=== PATIENT | female | born 1955 | race Caucasian/White ===

== ENCOUNTER → 2019-03-01 07:47 | Outpatient (CLI) | payer OTHER, SELFPAY ==
--- NOTE | 2019-03-01 07:48 | DI.RAD.S_ITS ---
PROCEDURE: XR LUMBAR SPINE 2-3V INDICATIONS: Lumbar pain, facet arthropathy TECHNIQUE: 3 views of the lumbar spine were acquired. COMPARISON: [facility], MR, L-SPINE WITHOUT CONTRAST, 12/06/2014, 9:26. [facility], MR, L-SPINE WITHOUT CONTRAST, 03/14/2008, 8:01. FINDINGS: Bones: 4 [id number] vertebrae are present. L5 is sacralized. There is normal bony alignment. No vertebral body compression fractures. There is grade 1 anterolisthesis at L4-L5. There is mild degenerative disease at L3-L4, L4-L5 and L5-S1. Moderate facet arthropathy at L4-L5 and L5-S1. No suspicious bony lesions. Soft tissues: Overlying bowel gas pattern is normal. No suspicious soft tissue calcifications. IMPRESSION: 1. Transitional anatomy with sacralization of L5. 2. Mild degenerative disc disease and moderate facet arthropathy in lumbar spine. Dictated by: Saul Cordon M.D. on 03/01/2019 at 8:54 Approved by: Saul Cordon M.D. on 03/01/2019 at 8:58
--- NOTE | 2019-03-01 07:48 | DI.MRI.S_ITS ---
PROCEDURE: MR LUMBAR SPINE WO CON INDICATIONS: Lumbar pain, facet arthropathy TECHNIQUE: Noncontrast sagittal T1 spin echo and T2 fast echo, sagittal STIR, axial T1 and T2 fast spin echo through the lumbar spine. In cases with scoliosis, additional coronal T2 fast spin echo may be performed. COMPARISON: [facility], MR, L-SPINE WITHOUT CONTRAST, 12/06/2014, 9:26. [facility], MR, L-SPINE WITHOUT CONTRAST, 03/14/2008, 8:01. [facility], CR, XR LUMBAR SPINE 2-3V, 03/01/2019, 8:09. FINDINGS: Image quality: Excellent. Alignment and Curvature: Transitional anatomy is evident on the comparison lumbar spine radiograph. L5 is sacralized. There is grade 1 anterolisthesis at L4-L5. Bone Marrow: Marrow is of normal overall signal. No acute vertebral body compression fractures. Spinal Cord: Conus medullaris terminates at the T12-L1 level. Visualized cord demonstrates normal signal and size. Paraspinous Soft Tissues: No paravertebral masses. T12-L1: Preserved disc height and disc signal. There is posterior disc bulge. The central canal is patent. No foraminal stenosis. No definitive nerve root impingement. L1-L2: Preserved disc height and disc signal. There is posterior disc bulge. Mild bilateral facet arthropathy and hypertrophy of ligamentum flavum. The central canal is patent. No foraminal stenosis. No definitive nerve root impingement. L2-L3: Mild loss of disc height and disc desiccation. There is posterior disc bulge. Mild bilateral facet arthropathy and hypertrophy of ligamentum flavum. The central canal is patent. Mild left foraminal stenosis, unchanged compared to the prior exam. No definitive nerve root impingement. L3-L4: Mild loss of disc height and disc desiccation. There is posterior disc bulge. Moderate bilateral facet arthropathy and hypertrophy of ligamentum flavum. The central canal is mildly narrowed. Moderate right and mild left foraminal stenosis, increased compared to the prior exam. No definitive nerve root impingement. L4-L5: Preserved disc height. Mild disc desiccation. There is posterior disc bulge. Severe bilateral facet arthropathy and hypertrophy of ligamentum flavum. The central canal is moderately narrowed. Mild right foraminal stenosis, unchanged compared to the prior exam. No left femoral stenosis. No definitive nerve root impingement. L5-S1: Normal appearance intervertebral disc. There is mild/moderate bilateral facet arthropathy. No central canal or foraminal stenosis. IMPRESSION: 1. Multilevel degenerative disc disease and facet arthropathy as described. 2. Moderate central canal stenosis at L4-L5. 3. Multilevel foraminal stenoses as described. Dictated by: Saul Cordon M.D. on 03/01/2019 at 15:46 Approved by: Saul Cordon M.D. on 03/01/2019 at 16:03
== END ==
PROVIDERS: PCP Family Medicine; Visit Provider Registered Nurse
DX: M47.817 Spondylosis without myelopathy or radiculopathy, lumbosacral region (principal); M47.816 Spondylosis without myelopathy or radiculopathy, lumbar region; M54.5 Low back pain; M51.36 Other intervertebral disc degeneration, lumbar region; M48.061 Spinal stenosis, lumbar region without neurogenic claudication
CPT/HCPCS: 72100; 72148

== ENCOUNTER 2019-06-06 14:30 | Outpatient (RCR) | payer OTHER, SELFPAY ==
--- NOTE | 2019-03-05 16:29 | PT.OIE ---
Current Diagnoses Spondylosis without myelopathy or radiculopathy, lumbosacral region (03/05/19) Past Medical History (Last Updated 01/29/19 @ 10:33 by BIRDIE Ledesma) Asthma (Chronic) Chronic seasonal allergic rhinitis (Chronic) Depression (Chronic) Facet arthropathy, lumbosacral (Chronic) GERD (gastroesophageal reflux disease) (Chronic) Hyperlipidemia (Chronic) Morbid obesity with body mass index (BMI) of 40.0 to 49.9 (Chronic) Obesity (BMI 30-39.9) (Inactive) Obstructive sleep apnea of adult (Chronic) Snoring (Inactive) Type 2 diabetes mellitus (Chronic) Visit Care Team Role Provider Type Mando Garcia DO Primary Care Provider Non-Staff Specialty: Family Practice Address: [address] [place] [address], [id number] Fax: Email: BIRDIE Ledesma Attending Provider Advanced Compressor Assembler Specialty: Pain Management Address: [address] [place] [address], [phone] Email: [email or web address] Physical Therapy Initial Evaluation PT-OP-A Visit Information Start: 03/05/19 07:29 Freq: Status: Active Protocol: Document 03/05/19 08:15 AMB (Rec: 03/06/19 16:23 AMB [email or web address]) Out-Patient Physical Therapy Visit Information Visit Information Visit Type Initial Evaluation Visit Start Time 08:15 Visit Stop Time 09:00 Total Visit Minutes 45 Visit Number 1 PT-OP-B Current Condition Start: 03/05/19 07:29 Freq: Status: Active Protocol: Document 03/05/19 08:15 AMB (Rec: 03/05/19 09:09 AMB [id number]) Current Condition History of Current Condition Onset Date 1 year ago Current Complaints back pain that radiates numbness into left great toe. History of Current Condition Edith reports a multi year history of low back pain that worsened about a year ago insidiously. 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 She does not find anything particularly helpful to reduce her pain. She did try PT years ago, and does remember the inversion table that they had was helpful. Future Testing and Treatments Planned MRI- 03/01/19: multilevel degenerative disc disease, foraminal stenosis, and facet arthorpathy, moderate central canal stenosis at L4-L5. Treatment Goals Patient/Caregiver Goals Decreae pain, go up and down stairs and walk over uneven terrain without pain Prior Functional Status Baseline Function- ADL's Independent Baseline Function- Mobility Independent Current Functional Impairments (Reported) Functional Limitations- ADL's Pt pushes through the pain to complete her work tasks and ADLs Personal Factors Other Personal Factors That May Effect type II diabetes, deperession Therapy/Recovery PT-OP-C Subjective Start: 03/05/19 07:29 Freq: Status: Active Protocol: Document 03/05/19 08:15 AMB (Rec: 03/06/19 16:23 AMB [email or web address]) Patient Questionnaires Oswestry Low Back Index Oswestry Score 30 Oswestry Impairment 20 to 39% Impaired (Score 20- 39) OP-PT Pain Assessment Location Back Pain Location Details low back over the spine with numbness radiating down left leg Intensity 4 Scale Used Numeric (1 - 10) PT-OP-G Mobility & Gait Start: 03/05/19 07:29 Freq: Status: Active Protocol: Document 03/05/19 08:15 AMB (Rec: 03/07/19 15:59 AMB [email or web address]) OP Gait Assessment Comments Gait Comments decreased trunk rotation, stairs: ok with 4 steps with railings- did ascend/descend stairs with alternating gait. PT-OP-J Posture/Palpation/Skin Start: 03/05/19 07:29 Freq: Status: Active Protocol: Document 03/05/19 08:15 AMB (Rec: 03/07/19 12:51 AMB [email or web address]) Posture Evaluation Comments Posture Comments Increased lumbar lordosis Palpation Assessment Location One Palpation Location lumbar spine Palpation Details Tenderness over spinous processes throughout lumbar spine, not into sacrum or thoracic spine. No tenderness over QL, but tenderness and tightness over paraspinals. PT-OP-K Range of Motion Start: 03/05/19 07:29 Freq: Status: Active Protocol: Document 03/05/19 08:15 AMB (Rec: 03/07/19 12:51 AMB [email or web address]) Lumbar Spine Range of Motion Lumbar Spine Active Degrees Testing Position Standing Flexion 20 Extension 5 Lateral Flexion Left 5 Lateral Flexion Right 10 ROM Limitations Soft Tissue Tightness,Pain PT-OP-M Strength Start: 03/05/19 07:29 Freq: Status: Active Protocol: Document 03/05/19 08:15 AMB (Rec: 03/07/19 15:55 AMB [email or web address]) Hip Strength Hip Manual Muscle Testing Right Flexion (L2) 4 Good Left Flexion (L2) 4 Good Knee Strength Knee Manual Muscle Testing Right Flexion (S2) 5 Normal Extension (L3) 5 Normal Left Flexion (S2) 5 Normal Extension (L3) 5 Normal Ankle/Foot Strength Ankle and Foot Manual Muscle Testing Right Dorsiflexion (L4) 4+ Good+ Left Dorsiflexion (L4) 4+ Good+ Toe Strength Toe Manual Muscle Testing Left Great Toe Extension 5 Normal PT-OP-T Assessment and Plan Start: 03/05/19 07:29 Freq: Status: Active Protocol: Document 03/05/19 08:15 AMB (Rec: 03/07/19 16:29 AMB [email or web address]) Physical Therapy Assessment Rehab Potential Rehabilitation Potential Good Evaluation Complexity Number of Personal Factors/Comorbidities 1-2 Number of Body Systems Impaired 4 or More Clinical Presentation at Evaluation Stable Impairments Impairments Functional Activities,Gait, Pain,Posture,ROM,Strength Goals Two Impairment gait Short Term Goal (STG) Edith will ambulate on smooth surfaces for 15 minutes with back pain of 2/10 or less. STG Duration 4 weeks Group Home Goal (LTG) Edith will ascend and descend a standard height stairs with alternating gait pattern without an increase in back pain. LTG Duration 8 weeks One Impairment ROM Short Term Goal (STG) Edith will increase her lumbar flexion to 45 degrees. STG Duration 4 weeks Materials Associate Goal (LTG) Edith will improve her lumbar extension to 15 degrees. LTG Duration 8 weeks Assessment Summary Assessment Edith attends PT with back pain that limits her ability to walk and do stairs. 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 She did have poor core stability, and ROM was more limited by pain than anything else, but she does have moderate central canal stenosis at L4-5. She will benefit from PT to improve her overall mobility, and decrease her pain wiht ambulation stairs. Physical Therapy Plan Frequency and Duration Frequency of Treatment 2x/Week Duration of Treatment 8 weeks Plan of Care Start Date 03/05/19 Plan of Care End Date 04/30/19 Therapeutic Interventions Therapeutic Interventions Aquatic Therapy,Gait Training, Home Exercise Program,Joint Mobilizations,Manual Therapy, Neuromuscular Re-education, Self-Care/Home Management, Therapeutic Activities, Therapeutic Exercises Modalities Cold Pack/Ice Massage,Electric Stimulation,Hot Packs, Traction- Mechanical Next Visit Focus/Plan Next Note Type Treatment Note Next Visit Plan Progress core stabilization HEP, can try traction for sx relief
--- NOTE | 2019-03-05 16:30 | PT.OPPOC ---
Current Diagnoses Spondylosis without myelopathy or radiculopathy, lumbosacral region (03/05/19) Visit Care Team Role Provider Type Mando Garcia DO Primary Care Provider Non-Staff Specialty: Family Practice Address: [address] [place] [address], [phone] Fax: Email: BIRDIE Ledesma Attending Provider Advanced Gaming Director Specialty: Pain Management Address: [address] [place] [address], [place], [address] Email: [email or web address] Plan Of Care PT-OP-T Assessment and Plan Start: 03/05/19 07:29 Freq: Status: Active Protocol: Document 03/05/19 08:15 AMB (Rec: 03/07/19 16:29 AMB [email or web address]) Physical Therapy Assessment Rehab Potential Rehabilitation Potential Good Evaluation Complexity Number of Personal Factors/Comorbidities 1-2 Number of Body Systems Impaired 4 or More Clinical Presentation at Evaluation Stable Impairments Impairments Functional Activities,Gait, Pain,Posture,ROM,Strength Goals Two Impairment gait Short Term Goal (STG) Edith will ambulate on smooth surfaces for 15 minutes with back pain of 2/10 or less. STG Duration 4 weeks Business Account Executive Goal (LTG) Edith will ascend and descend a standard height stairs with alternating gait pattern without an increase in back pain. LTG Duration 8 weeks One Impairment ROM Short Term Goal (STG) Edith will increase her lumbar flexion to 45 degrees. STG Duration 4 weeks Mcfp Goal (LTG) Edith will improve her lumbar extension to 15 degrees. LTG Duration 8 weeks Assessment Summary Assessment Edith attends PT with back pain that limits her ability to walk and do stairs. 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 She did have poor core stability, and ROM was more limited by pain than anything else, but she does have moderate central canal stenosis at L4-5. She will benefit from PT to improve her overall mobility, and decrease her pain wiht ambulation stairs. Physical Therapy Plan Frequency and Duration Frequency of Treatment 2x/Week Duration of Treatment 8 weeks Plan of Care Start Date 03/05/19 Plan of Care End Date 04/30/19 Therapeutic Interventions Therapeutic Interventions Aquatic Therapy,Gait Training, Home Exercise Program,Joint Mobilizations,Manual Therapy, Neuromuscular Re-education, Self-Care/Home Management, Therapeutic Activities, Therapeutic Exercises Modalities Cold Pack/Ice Massage,Electric Stimulation,Hot Packs, Traction- Mechanical Next Visit Focus/Plan Next Note Type Treatment Note Next Visit Plan Progress core stabilization HEP, can try traction for sx relief Plan of Care Dates Plan of Care Start Date 03/05/19 Plan of Care End Date 04/30/19
--- NOTE | 2019-03-08 12:00 | PT.OTN ---
Current Diagnoses Spondylosis without myelopathy or radiculopathy, lumbosacral region (03/08/19) Physical Therapy Treatment Note PT-OP-A Visit Information Start: 03/05/19 07:29 Freq: Status: Active Protocol: Document 03/08/19 08:15 AMB (Rec: 03/08/19 09:08 AMB [id number]) Out-Patient Physical Therapy Visit Information Visit Information Visit Type Treatment Note Visit Start Time 08:15 Visit Stop Time 09:00 Total Visit Minutes 45 Visit Number 2 PT-OP-B Current Condition Start: 03/05/19 07:29 Freq: Status: Active Protocol: Document 03/05/19 08:15 AMB (Rec: 03/05/19 09:09 AMB [id number]) Current Condition History of Current Condition Onset Date 1 year ago Current Complaints back pain that radiates numbness into left great toe. History of Current Condition Edith reports a multi year history of low back pain that worsened about a year ago insidiously. 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 She does not find anything particularly helpful to reduce her pain. She did try PT years ago, and does remember the inversion table that they had was helpful. Future Testing and Treatments Planned MRI- 03/01/19: multilevel degenerative disc disease, foraminal stenosis, and facet arthorpathy, moderate central canal stenosis at L4-L5. Treatment Goals Patient/Caregiver Goals Decreae pain, go up and down stairs and walk over uneven terrain without pain Prior Functional Status Baseline Function- ADL's Independent Baseline Function- Mobility Independent Current Functional Impairments (Reported) Functional Limitations- ADL's Pt pushes through the pain to complete her work tasks and ADLs Personal Factors Other Personal Factors That May Effect type II diabetes, deperession Therapy/Recovery PT-OP-C Subjective Start: 03/05/19 07:29 Freq: Status: Active Protocol: Document 03/08/19 08:15 AMB (Rec: 03/08/19 09:08 AMB [id number]) OP-PT Subjective Patient Comments Patient Comments Pt reports car transfers are also a problem for her back- lifting her leg into the car. PT-OP-G Mobility & Gait Start: 03/05/19 07:29 Freq: Status: Active Protocol: Document 03/05/19 08:15 AMB (Rec: 03/07/19 15:59 AMB [email or web address]) OP Gait Assessment Comments Gait Comments decreased trunk rotation, stairs: ok with 4 steps with railings- did ascend/descend stairs with alternating gait. PT-OP-J Posture/Palpation/Skin Start: 03/05/19 07:29 Freq: Status: Active Protocol: Document 03/05/19 08:15 AMB (Rec: 03/07/19 12:51 AMB [email or web address]) Posture Evaluation Comments Posture Comments Increased lumbar lordosis Palpation Assessment Location One Palpation Location lumbar spine Palpation Details Tenderness over spinous processes throughout lumbar spine, not into sacrum or thoracic spine. No tenderness over QL, but tenderness and tightness over paraspinals. PT-OP-K Range of Motion Start: 03/05/19 07:29 Freq: Status: Active Protocol: Document 03/05/19 08:15 AMB (Rec: 03/07/19 12:51 AMB [email or web address]) Lumbar Spine Range of Motion Lumbar Spine Active Degrees Testing Position Standing Flexion 20 Extension 5 Lateral Flexion Left 5 Lateral Flexion Right 10 ROM Limitations Soft Tissue Tightness,Pain PT-OP-M Strength Start: 03/05/19 07:29 Freq: Status: Active Protocol: Document 03/05/19 08:15 AMB (Rec: 03/07/19 15:55 AMB [email or web address]) Hip Strength Hip Manual Muscle Testing Right Flexion (L2) 4 Good Left Flexion (L2) 4 Good Knee Strength Knee Manual Muscle Testing Right Flexion (S2) 5 Normal Extension (L3) 5 Normal Left Flexion (S2) 5 Normal Extension (L3) 5 Normal Ankle/Foot Strength Ankle and Foot Manual Muscle Testing Right Dorsiflexion (L4) 4+ Good+ Left Dorsiflexion (L4) 4+ Good+ Toe Strength Toe Manual Muscle Testing Left Great Toe Extension 5 Normal PT-OP-Q Treatments Start: 03/05/19 07:29 Freq: Status: Active Protocol: Document 03/08/19 08:15 AMB (Rec: 03/08/19 12:00 AMB [email or web address]) Cardio Equipment Recumbent Stepper (Sci-Fit) Duration (Minutes) 5 Resistance 6 Therapeutic Exercises Supine Exercises 2 Supine Exercise Name supine may 26 Supine Exercise Name TrA stabilization with neutral spine Other Exercises 3 Other Exercise Name cat cow Reps/Minutes 30x2 2 Other Exercise Name quadruped UE flex Reps/Minutes 10x2 1 Other Exercise Name yue pose Reps/Minutes 30x3 PT-OP-T Assessment and Plan Start: 03/05/19 07:29 Freq: Status: Active Protocol: Document 03/08/19 08:15 AMB (Rec: 03/08/19 12:00 AMB [email or web address]) Physical Therapy Assessment Assessment Summary Assessment Pt has a Sherman lumbar traction unit at home. Encouraged her to set it up and try it. Welcome to bring it it/ try it here if she has questions. Tolerated gentle core stabilization well. Physical Therapy Plan Next Visit Focus/Plan Next Note Type Treatment Note Next Visit Plan Progress core stabilization HEP,
--- NOTE | 2019-03-13 14:32 | PT.OTN ---
Current Diagnoses Spondylosis without myelopathy or radiculopathy, lumbosacral region (03/12/19) Physical Therapy Treatment Note PT-OP-A Visit Information Start: 03/05/19 07:29 Freq: Status: Active Protocol: Document 03/12/19 08:15 AMB (Rec: 03/12/19 09:10 AMB [id number]) Out-Patient Physical Therapy Visit Information Visit Information Visit Type Treatment Note Visit Start Time 08:15 Visit Stop Time 09:00 Total Visit Minutes 45 Visit Number 3 PT-OP-B Current Condition Start: 03/05/19 07:29 Freq: Status: Active Protocol: Document 03/05/19 08:15 AMB (Rec: 03/05/19 09:09 AMB [id number]) Current Condition History of Current Condition Onset Date 1 year ago Current Complaints back pain that radiates numbness into left great toe. History of Current Condition Edith reports a multi year history of low back pain that worsened about a year ago insidiously. 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 She does not find anything particularly helpful to reduce her pain. She did try PT years ago, and does remember the inversion table that they had was helpful. Future Testing and Treatments Planned MRI- 03/01/19: multilevel degenerative disc disease, foraminal stenosis, and facet arthorpathy, moderate central canal stenosis at L4-L5. Treatment Goals Patient/Caregiver Goals Decreae pain, go up and down stairs and walk over uneven terrain without pain Prior Functional Status Baseline Function- ADL's Independent Baseline Function- Mobility Independent Current Functional Impairments (Reported) Functional Limitations- ADL's Pt pushes through the pain to complete her work tasks and ADLs Personal Factors Other Personal Factors That May Effect type II diabetes, deperession Therapy/Recovery PT-OP-C Subjective Start: 03/05/19 07:29 Freq: Status: Active Protocol: Document 03/12/19 08:15 AMB (Rec: 03/13/19 14:32 AMB [email or web address]) OP-PT Subjective Patient Comments Patient Comments Pt brings her home traction unit in, but is concerned because she has not used it in years and tried to pump it up but the numbers didn't move. She was sore after the last appointment, but not overly so . PT-OP-G Mobility & Gait Start: 03/05/19 07:29 Freq: Status: Active Protocol: Document 03/05/19 08:15 AMB (Rec: 03/07/19 15:59 AMB [email or web address]) OP Gait Assessment Comments Gait Comments decreased trunk rotation, stairs: ok with 4 steps with railings- did ascend/descend stairs with alternating gait. PT-OP-J Posture/Palpation/Skin Start: 03/05/19 07:29 Freq: Status: Active Protocol: Document 03/05/19 08:15 AMB (Rec: 03/07/19 12:51 AMB [email or web address]) Posture Evaluation Comments Posture Comments Increased lumbar lordosis Palpation Assessment Location One Palpation Location lumbar spine Palpation Details Tenderness over spinous processes throughout lumbar spine, not into sacrum or thoracic spine. No tenderness over QL, but tenderness and tightness over paraspinals. PT-OP-K Range of Motion Start: 03/05/19 07:29 Freq: Status: Active Protocol: Document 03/05/19 08:15 AMB (Rec: 03/07/19 12:51 AMB [email or web address]) Lumbar Spine Range of Motion Lumbar Spine Active Degrees Testing Position Standing Flexion 20 Extension 5 Lateral Flexion Left 5 Lateral Flexion Right 10 ROM Limitations Soft Tissue Tightness,Pain PT-OP-M Strength Start: 03/05/19 07:29 Freq: Status: Active Protocol: Document 03/05/19 08:15 AMB (Rec: 03/07/19 15:55 AMB [email or web address]) Hip Strength Hip Manual Muscle Testing Right Flexion (L2) 4 Good Left Flexion (L2) 4 Good Knee Strength Knee Manual Muscle Testing Right Flexion (S2) 5 Normal Extension (L3) 5 Normal Left Flexion (S2) 5 Normal Extension (L3) 5 Normal Ankle/Foot Strength Ankle and Foot Manual Muscle Testing Right Dorsiflexion (L4) 4+ Good+ Left Dorsiflexion (L4) 4+ Good+ Toe Strength Toe Manual Muscle Testing Left Great Toe Extension 5 Normal PT-OP-Q Treatments Start: 03/05/19 07:29 Freq: Status: Active Protocol: Document 03/12/19 08:15 AMB (Rec: 03/13/19 14:32 AMB [email or web address]) Therapeutic Exercises Supine Exercises 3 Supine Exercise Name SLR Reps/Minutes 2x10 2 Supine Exercise Name supine march Reps/Minutes 2x10 1 Supine Exercise Name TrA stabilization with neutral spine Reps/Minutes 2x10 Other Exercises 2 Other Exercise Name quadruped UE flex Reps/Minutes 10x2 1 Other Exercise Name yue pose Reps/Minutes 30x3 PT-OP-R Modalities Start: 03/05/19 07:29 Freq: Status: Active Protocol: Document 03/12/19 08:15 AMB (Rec: 03/13/19 14:32 AMB [email or web address]) Spinal Traction Traction Treatment Lumbar Method Static Patient Position Supine Force Applied (Pounds) 25 PT-OP-T Assessment and Plan Start: 03/05/19 07:29 Freq: Status: Active Protocol: Document 03/12/19 08:15 AMB (Rec: 03/13/19 14:32 AMB [email or web address]) Physical Therapy Assessment Assessment Summary Assessment Pt was able to use [employer]'s traction unit, felt a stretch with a small amount of traction, machine was difficult to pump up but possible. Pt continues to have weakness in core but is doing her HEP. Physical Therapy Plan Next Visit Focus/Plan Next Note Type Treatment Note Next Visit Plan Progress core stabilization HEP,
--- NOTE | 2019-03-15 12:00 | PT.OTN ---
Current Diagnoses Spondylosis without myelopathy or radiculopathy, lumbosacral region (03/15/19) Physical Therapy Treatment Note PT-OP-A Visit Information Start: 03/05/19 07:29 Freq: Status: Active Protocol: Document 03/15/19 08:15 AMB (Rec: 03/15/19 08:39 AMB [id number]) Out-Patient Physical Therapy Visit Information Visit Information Visit Type Treatment Note Visit Start Time 08:15 Visit Stop Time 09:00 Total Visit Minutes 45 Visit Number 4 PT-OP-B Current Condition Start: 03/05/19 07:29 Freq: Status: Active Protocol: Document 03/05/19 08:15 AMB (Rec: 03/05/19 09:09 AMB [id number]) Current Condition History of Current Condition Onset Date 1 year ago Current Complaints back pain that radiates numbness into left great toe. History of Current Condition Edith reports a multi year history of low back pain that worsened about a year ago insidiously. 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 She does not find anything particularly helpful to reduce her pain. She did try PT years ago, and does remember the inversion table that they had was helpful. Future Testing and Treatments Planned MRI- 03/01/19: multilevel degenerative disc disease, foraminal stenosis, and facet arthorpathy, moderate central canal stenosis at L4-L5. Treatment Goals Patient/Caregiver Goals Decreae pain, go up and down stairs and walk over uneven terrain without pain Prior Functional Status Baseline Function- ADL's Independent Baseline Function- Mobility Independent Current Functional Impairments (Reported) Functional Limitations- ADL's Pt pushes through the pain to complete her work tasks and ADLs Personal Factors Other Personal Factors That May Effect type II diabetes, deperession Therapy/Recovery PT-OP-C Subjective Start: 03/05/19 07:29 Freq: Status: Active Protocol: Document 03/15/19 08:15 AMB (Rec: 03/15/19 08:39 AMB [id number]) OP-PT Subjective Patient Comments Patient Comments Pt notes she was sore after PT , but also noticed greater flexibility when she tried to trim her toenails which was nice. PT-OP-G Mobility & Gait Start: 03/05/19 07:29 Freq: Status: Active Protocol: Document 03/05/19 08:15 AMB (Rec: 03/07/19 15:59 AMB [email or web address]) OP Gait Assessment Comments Gait Comments decreased trunk rotation, stairs: ok with 4 steps with railings- did ascend/descend stairs with alternating gait. PT-OP-J Posture/Palpation/Skin Start: 03/05/19 07:29 Freq: Status: Active Protocol: Document 03/05/19 08:15 AMB (Rec: 03/07/19 12:51 AMB [email or web address]) Posture Evaluation Comments Posture Comments Increased lumbar lordosis Palpation Assessment Location One Palpation Location lumbar spine Palpation Details Tenderness over spinous processes throughout lumbar spine, not into sacrum or thoracic spine. No tenderness over QL, but tenderness and tightness over paraspinals. PT-OP-K Range of Motion Start: 03/05/19 07:29 Freq: Status: Active Protocol: Document 03/05/19 08:15 AMB (Rec: 03/07/19 12:51 AMB [email or web address]) Lumbar Spine Range of Motion Lumbar Spine Active Degrees Testing Position Standing Flexion 20 Extension 5 Lateral Flexion Left 5 Lateral Flexion Right 10 ROM Limitations Soft Tissue Tightness,Pain PT-OP-M Strength Start: 03/05/19 07:29 Freq: Status: Active Protocol: Document 03/05/19 08:15 AMB (Rec: 03/07/19 15:55 AMB [email or web address]) Hip Strength Hip Manual Muscle Testing Right Flexion (L2) 4 Good Left Flexion (L2) 4 Good Knee Strength Knee Manual Muscle Testing Right Flexion (S2) 5 Normal Extension (L3) 5 Normal Left Flexion (S2) 5 Normal Extension (L3) 5 Normal Ankle/Foot Strength Ankle and Foot Manual Muscle Testing Right Dorsiflexion (L4) 4+ Good+ Left Dorsiflexion (L4) 4+ Good+ Toe Strength Toe Manual Muscle Testing Left Great Toe Extension 5 Normal PT-OP-Q Treatments Start: 03/05/19 07:29 Freq: Status: Active Protocol: Document 03/15/19 08:15 AMB (Rec: 03/15/19 08:39 AMB [id number]) Cardio Equipment Recumbent Stepper (Sci-Fit) Duration (Minutes) 6 Resistance 6 Therapeutic Exercises Supine Exercises 2 Supine Exercise Name supine march Reps/Minutes 2x10 1 Supine Exercise Name TrA stabilization with neutral spine Reps/Minutes 2x10 Other Exercises 2 Other Exercise Name quadruped UE flex Reps/Minutes 10x2 1 Other Exercise Name yue pose Reps/Minutes 30x3 Therapeutic Activity Therapeutic Activity 1 Name lift training Comments 10# from floor to waist height , focusing on squat technique rather than bending at the waist. PT-OP-R Modalities Start: 03/05/19 07:29 Freq: Status: Active Protocol: Document 03/12/19 08:15 AMB (Rec: 03/13/19 14:32 AMB [email or web address]) Spinal Traction Traction Treatment Lumbar Method Static Patient Position Supine Force Applied (Pounds) 25 PT-OP-T Assessment and Plan Start: 03/05/19 07:29 Freq: Status: Active Protocol: Document 03/15/19 08:15 AMB (Rec: 03/15/19 08:39 AMB [id number]) Physical Therapy Assessment Assessment Summary Assessment Pt tolerated supine core stabilization well, but back does continue to be sore. Physical Therapy Plan Next Visit Focus/Plan Next Note Type Treatment Note Next Visit Plan Progress core stabilization HEP,
--- NOTE | 2019-03-19 09:00 | PT.OTN ---
Current Diagnoses Spondylosis without myelopathy or radiculopathy, lumbosacral region (03/19/19) Physical Therapy Treatment Note PT-OP-A Visit Information Start: 03/05/19 07:29 Freq: Status: Active Protocol: Document 03/19/19 08:22 SP (Rec: 03/19/19 09:08 SP [id number]) Out-Patient Physical Therapy Visit Information Visit Information Visit Type Treatment Note Visit Start Time 08:22 Visit Stop Time 09:00 Total Visit Minutes 38 Visit Number 5 Number of SEBD TEACHER Visits 1 PT-OP-B Current Condition Start: 03/05/19 07:29 Freq: Status: Active Protocol: Document 03/05/19 08:15 AMB (Rec: 03/05/19 09:09 AMB [id number]) Current Condition History of Current Condition Onset Date 1 year ago Current Complaints back pain that radiates numbness into left great toe. History of Current Condition Edith reports a multi year history of low back pain that worsened about a year ago insidiously. 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 She does not find anything particularly helpful to reduce her pain. She did try PT years ago, and does remember the inversion table that they had was helpful. Future Testing and Treatments Planned MRI- 03/01/19: multilevel degenerative disc disease, foraminal stenosis, and facet arthorpathy, moderate central canal stenosis at L4-L5. Treatment Goals Patient/Caregiver Goals Decreae pain, go up and down stairs and walk over uneven terrain without pain Prior Functional Status Baseline Function- ADL's Independent Baseline Function- Mobility Independent Current Functional Impairments (Reported) Functional Limitations- ADL's Pt pushes through the pain to complete her work tasks and ADLs Personal Factors Other Personal Factors That May Effect type II diabetes, deperession Therapy/Recovery PT-OP-C Subjective Start: 03/05/19 07:29 Freq: Status: Active Protocol: Document 03/19/19 08:22 SP (Rec: 03/19/19 09:08 SP [id number]) OP-PT Subjective Patient Comments Patient Comments Pt stated hasn't been doing her exercises much due to family in town. Pt stated got on the floor to get in her cupboard and couldn't get back up without using a chair to push up from to stand. PT-OP-G Mobility & Gait Start: 03/05/19 07:29 Freq: Status: Active Protocol: Document 03/05/19 08:15 AMB (Rec: 03/07/19 15:59 AMB [email or web address]) OP Gait Assessment Comments Gait Comments decreased trunk rotation, stairs: ok with 4 steps with railings- did ascend/descend stairs with alternating gait. PT-OP-J Posture/Palpation/Skin Start: 03/05/19 07:29 Freq: Status: Active Protocol: Document 03/05/19 08:15 AMB (Rec: 03/07/19 12:51 AMB [email or web address]) Posture Evaluation Comments Posture Comments Increased lumbar lordosis Palpation Assessment Location One Palpation Location lumbar spine Palpation Details Tenderness over spinous processes throughout lumbar spine, not into sacrum or thoracic spine. No tenderness over QL, but tenderness and tightness over paraspinals. PT-OP-K Range of Motion Start: 03/05/19 07:29 Freq: Status: Active Protocol: Document 03/05/19 08:15 AMB (Rec: 03/07/19 12:51 AMB [email or web address]) Lumbar Spine Range of Motion Lumbar Spine Active Degrees Testing Position Standing Flexion 20 Extension 5 Lateral Flexion Left 5 Lateral Flexion Right 10 ROM Limitations Soft Tissue Tightness,Pain PT-OP-M Strength Start: 03/05/19 07:29 Freq: Status: Active Protocol: Document 03/05/19 08:15 AMB (Rec: 03/07/19 15:55 AMB [email or web address]) Hip Strength Hip Manual Muscle Testing Right Flexion (L2) 4 Good Left Flexion (L2) 4 Good Knee Strength Knee Manual Muscle Testing Right Flexion (S2) 5 Normal Extension (L3) 5 Normal Left Flexion (S2) 5 Normal Extension (L3) 5 Normal Ankle/Foot Strength Ankle and Foot Manual Muscle Testing Right Dorsiflexion (L4) 4+ Good+ Left Dorsiflexion (L4) 4+ Good+ Toe Strength Toe Manual Muscle Testing Left Great Toe Extension 5 Normal PT-OP-Q Treatments Start: 03/05/19 07:29 Freq: Status: Active Protocol: Document 03/19/19 08:22 SP (Rec: 03/19/19 09:08 SP [id number]) Therapeutic Exercises Supine Exercises lumbar stretch Supine Exercise Name HEP DKFO Side bilateral Reps/Minutes 2x8 3 Supine Exercise Name SLR and SLR Reps/Minutes 2x10 2 Supine Exercise Name supine march Reps/Minutes 2x10 1 Supine Exercise Name TrA stabilization with neutral spine Reps/Minutes 2x10 Sitting Exercises QL stretch Side bilateral Reps/Minutes 30 x3 clam shell Side bilateral Reps/Minutes 2x10 HEP review Standing Exercises Core side stepping Side bilateral Resistance TB #1 Reps/Minutes 5 steps R and L x2 sets Comments Cued neutral pelvis, slow pacing. Other Exercises 2 Other Exercise Name quadruped UE flex and LE ext foot slide Comments LE ext foot contact table, slowpacing PPT eccentric 1 Other Exercise Name yue pose Reps/Minutes 30x3 PT-OP-R Modalities Start: 03/05/19 07:29 Freq: Status: Active Protocol: Document 03/12/19 08:15 AMB (Rec: 03/13/19 14:32 AMB [email or web address]) Spinal Traction Traction Treatment Lumbar Method Static Patient Position Supine Force Applied (Pounds) 25 PT-OP-T Assessment and Plan Start: 03/05/19 07:29 Freq: Status: Active Protocol: Document 03/19/19 08:22 SP (Rec: 03/19/19 09:08 SP [id number]) Physical Therapy Assessment Goals Two Impairment gait Short Term Goal (STG) Edith will ambulate on smooth surfaces for 15 minutes with back pain of 2/10 or less. STG Duration 4 weeks Stevedoring Supervisor Goal (LTG) Edith will ascend and descend a standard height stairs with alternating gait pattern without an increase in back pain. LTG Duration 8 weeks One Impairment ROM Short Term Goal (STG) Edith will increase her lumbar flexion to 45 degrees. STG Duration 4 weeks [facility] Goal (LTG) Edith will improve her lumbar extension to 15 degrees. LTG Duration 8 weeks Assessment Summary Assessment Tx focused on core stabilization and HEP review. Pt tolerated ther ex well. Increased challenge to bird dog with LE foot slide, added seated QL stretch and resisted side stepping with cuing for PPT level pelvis slow control to maintain spinal alignment. Pt reported R LB tightening still but improved with cues for core tightening. No adverse reactions to tx today. Offered MHP but patient declined, I'm ok. Added more appts to schedule to allow for time for progression with noted core weakness. Physical Therapy Plan Frequency and Duration Frequency of Treatment 2x/Week Duration of Treatment 8 weeks Plan of Care Start Date 03/05/19 Plan of Care End Date 04/30/19 Therapeutic Interventions Therapeutic Interventions Aquatic Therapy,Gait Training, Home Exercise Program,Joint Mobilizations,Manual Therapy, Neuromuscular Re-education, Self-Care/Home Management, Therapeutic Activities, Therapeutic Exercises Modalities Cold Pack/Ice Massage,Electric Stimulation,Hot Packs, Traction- Mechanical Next Visit Focus/Plan Next Note Type Treatment Note Next Visit Plan Assess added QL stretch seated LE ext foot slide to bird dog and resisted side stepping to HEP. COntinue per PT POC: Progress core stabilization HEP,
--- NOTE | 2019-03-23 09:02 | PT.OTN ---
Current Diagnoses Spondylosis without myelopathy or radiculopathy, lumbosacral region (03/23/19) Physical Therapy Treatment Note PT-OP-A Visit Information Start: 03/05/19 07:29 Freq: Status: Active Protocol: Document 03/23/19 08:15 AMB (Rec: 03/23/19 09:02 AMB [id number]) Out-Patient Physical Therapy Visit Information Visit Information Visit Type Treatment Note Visit Start Time 08:15 Visit Stop Time 09:00 Total Visit Minutes 45 Visit Number 6 Number of STERILISATION TECHNICIAN Visits 0 PT-OP-B Current Condition Start: 03/05/19 07:29 Freq: Status: Active Protocol: Document 03/05/19 08:15 AMB (Rec: 03/05/19 09:09 AMB [id number]) Current Condition History of Current Condition Onset Date 1 year ago Current Complaints back pain that radiates numbness into left great toe. History of Current Condition Edith reports a multi year history of low back pain that worsened about a year ago insidiously. 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 She does not find anything particularly helpful to reduce her pain. She did try PT years ago, and does remember the inversion table that they had was helpful. Future Testing and Treatments Planned MRI- 03/01/19: multilevel degenerative disc disease, foraminal stenosis, and facet arthorpathy, moderate central canal stenosis at L4-L5. Treatment Goals Patient/Caregiver Goals Decreae pain, go up and down stairs and walk over uneven terrain without pain Prior Functional Status Baseline Function- ADL's Independent Baseline Function- Mobility Independent Current Functional Impairments (Reported) Functional Limitations- ADL's Pt pushes through the pain to complete her work tasks and ADLs Personal Factors Other Personal Factors That May Effect type II diabetes, deperession Therapy/Recovery PT-OP-C Subjective Start: 03/05/19 07:29 Freq: Status: Active Protocol: Document 03/23/19 08:15 AMB (Rec: 03/23/19 09:02 AMB [id number]) OP-PT Subjective Patient Comments Patient Comments Pt is getting back into the routine of doing her exercises . Has been feeling the right side of her back more with sidestepping exercise. Back overall feeling better because of taking 2 week vacation. PT-OP-G Mobility & Gait Start: 03/05/19 07:29 Freq: Status: Active Protocol: Document 03/05/19 08:15 AMB (Rec: 03/07/19 15:59 AMB [email or web address]) OP Gait Assessment Comments Gait Comments decreased trunk rotation, stairs: ok with 4 steps with railings- did ascend/descend stairs with alternating gait. PT-OP-J Posture/Palpation/Skin Start: 03/05/19 07:29 Freq: Status: Active Protocol: Document 03/05/19 08:15 AMB (Rec: 03/07/19 12:51 AMB [email or web address]) Posture Evaluation Comments Posture Comments Increased lumbar lordosis Palpation Assessment Location One Palpation Location lumbar spine Palpation Details Tenderness over spinous processes throughout lumbar spine, not into sacrum or thoracic spine. No tenderness over QL, but tenderness and tightness over paraspinals. PT-OP-K Range of Motion Start: 03/05/19 07:29 Freq: Status: Active Protocol: Document 03/05/19 08:15 AMB (Rec: 03/07/19 12:51 AMB [email or web address]) Lumbar Spine Range of Motion Lumbar Spine Active Degrees Testing Position Standing Flexion 20 Extension 5 Lateral Flexion Left 5 Lateral Flexion Right 10 ROM Limitations Soft Tissue Tightness,Pain PT-OP-M Strength Start: 03/05/19 07:29 Freq: Status: Active Protocol: Document 03/05/19 08:15 AMB (Rec: 03/07/19 15:55 AMB [email or web address]) Hip Strength Hip Manual Muscle Testing Right Flexion (L2) 4 Good Left Flexion (L2) 4 Good Knee Strength Knee Manual Muscle Testing Right Flexion (S2) 5 Normal Extension (L3) 5 Normal Left Flexion (S2) 5 Normal Extension (L3) 5 Normal Ankle/Foot Strength Ankle and Foot Manual Muscle Testing Right Dorsiflexion (L4) 4+ Good+ Left Dorsiflexion (L4) 4+ Good+ Toe Strength Toe Manual Muscle Testing Left Great Toe Extension 5 Normal PT-OP-Q Treatments Start: 03/05/19 07:29 Freq: Status: Active Protocol: Document 03/23/19 08:15 AMB (Rec: 03/23/19 09:02 AMB [id number]) Cardio Equipment Recumbent Stepper (Sci-Fit) Duration (Minutes) 6 Resistance 6 Therapeutic Exercises Supine Exercises lumbar stretch Supine Exercise Name HEP DKFO Side bilateral Reps/Minutes 2x10 3 Supine Exercise Name SLR and SLR Reps/Minutes 2x10 2 Supine Exercise Name supine march Reps/Minutes 2x10 Sitting Exercises QL stretch Side bilateral Reps/Minutes 30 x3 Standing Exercises Core side stepping Side bilateral Resistance TB #1 Reps/Minutes 5 steps R and L x2 sets Comments Cued neutral pelvis, slow pacing. Avoid lateral trunk lean Other Exercises 2 Other Exercise Name quadruped UE flex and LE ext foot slide Comments LE ext foot contact table, slowpacing PPT eccentric 1 Other Exercise Name yue pose Reps/Minutes 30x3 PT-OP-R Modalities Start: 03/05/19 07:29 Freq: Status: Active Protocol: Document 03/12/19 08:15 AMB (Rec: 03/13/19 14:32 AMB [email or web address]) Spinal Traction Traction Treatment Lumbar Method Static Patient Position Supine Force Applied (Pounds) 25 PT-OP-T Assessment and Plan Start: 03/05/19 07:29 Freq: Status: Active Protocol: Document 03/23/19 08:15 AMB (Rec: 03/23/19 09:02 AMB [id number]) Physical Therapy Assessment Goals Two Impairment gait Short Term Goal (STG) Edith will ambulate on smooth surfaces for 15 minutes with back pain of 2/10 or less. STG Duration 4 weeks [facility] Goal (LTG) Edith will ascend and descend a standard height stairs with alternating gait pattern without an increase in back pain. LTG Duration 8 weeks One Impairment ROM Short Term Goal (STG) Edith will increase her lumbar flexion to 45 degrees. STG Duration 4 weeks Power Digger Operator Goal (LTG) Edith will improve her lumbar extension to 15 degrees. LTG Duration 8 weeks Assessment Summary Assessment Edith did better with sidestepping with vc to avoid excessive lateral trunk movement, so kept in HEP. Bird dog and QL stretch tolerated well. Physical Therapy Plan Next Visit Focus/Plan Next Note Type Treatment Note Next Visit Plan COntinue per PT POC: Progress core stabilization HEP,
--- NOTE | 2019-03-26 13:01 | PT.OTN ---
Current Diagnoses Spondylosis without myelopathy or radiculopathy, lumbosacral region (03/26/19) Physical Therapy Treatment Note PT-OP-A Visit Information Start: 03/05/19 07:29 Freq: Status: Active Protocol: Document 03/26/19 07:30 AMB (Rec: 03/26/19 08:06 AMB [id number]) Out-Patient Physical Therapy Visit Information Visit Information Visit Type Treatment Note Visit Start Time 07:30 Visit Stop Time 08:15 Total Visit Minutes 45 Visit Number 7 Number of TECHNICAL CLERK Visits 0 PT-OP-B Current Condition Start: 03/05/19 07:29 Freq: Status: Active Protocol: Document 03/05/19 08:15 AMB (Rec: 03/05/19 09:09 AMB [id number]) Current Condition History of Current Condition Onset Date 1 year ago Current Complaints back pain that radiates numbness into left great toe. History of Current Condition Edith reports a multi year history of low back pain that worsened about a year ago insidiously. 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 She does not find anything particularly helpful to reduce her pain. She did try PT years ago, and does remember the inversion table that they had was helpful. Future Testing and Treatments Planned MRI- 03/01/19: multilevel degenerative disc disease, foraminal stenosis, and facet arthorpathy, moderate central canal stenosis at L4-L5. Treatment Goals Patient/Caregiver Goals Decreae pain, go up and down stairs and walk over uneven terrain without pain Prior Functional Status Baseline Function- ADL's Independent Baseline Function- Mobility Independent Current Functional Impairments (Reported) Functional Limitations- ADL's Pt pushes through the pain to complete her work tasks and ADLs Personal Factors Other Personal Factors That May Effect type II diabetes, deperession Therapy/Recovery PT-OP-C Subjective Start: 03/05/19 07:29 Freq: Status: Active Protocol: Document 03/26/19 07:30 AMB (Rec: 03/26/19 08:06 AMB [id number]) OP-PT Subjective Patient Comments Patient Comments Overall pt feels back is doing better, will be going back to work on after 2 week vacation, so will see how that goes. PT-OP-G Mobility & Gait Start: 03/05/19 07:29 Freq: Status: Active Protocol: Document 03/05/19 08:15 AMB (Rec: 03/07/19 15:59 AMB [email or web address]) OP Gait Assessment Comments Gait Comments decreased trunk rotation, stairs: ok with 4 steps with railings- did ascend/descend stairs with alternating gait. PT-OP-J Posture/Palpation/Skin Start: 03/05/19 07:29 Freq: Status: Active Protocol: Document 03/05/19 08:15 AMB (Rec: 03/07/19 12:51 AMB [email or web address]) Posture Evaluation Comments Posture Comments Increased lumbar lordosis Palpation Assessment Location One Palpation Location lumbar spine Palpation Details Tenderness over spinous processes throughout lumbar spine, not into sacrum or thoracic spine. No tenderness over QL, but tenderness and tightness over paraspinals. PT-OP-K Range of Motion Start: 03/05/19 07:29 Freq: Status: Active Protocol: Document 03/05/19 08:15 AMB (Rec: 03/07/19 12:51 AMB [email or web address]) Lumbar Spine Range of Motion Lumbar Spine Active Degrees Testing Position Standing Flexion 20 Extension 5 Lateral Flexion Left 5 Lateral Flexion Right 10 ROM Limitations Soft Tissue Tightness,Pain PT-OP-M Strength Start: 03/05/19 07:29 Freq: Status: Active Protocol: Document 03/05/19 08:15 AMB (Rec: 03/07/19 15:55 AMB [email or web address]) Hip Strength Hip Manual Muscle Testing Right Flexion (L2) 4 Good Left Flexion (L2) 4 Good Knee Strength Knee Manual Muscle Testing Right Flexion (S2) 5 Normal Extension (L3) 5 Normal Left Flexion (S2) 5 Normal Extension (L3) 5 Normal Ankle/Foot Strength Ankle and Foot Manual Muscle Testing Right Dorsiflexion (L4) 4+ Good+ Left Dorsiflexion (L4) 4+ Good+ Toe Strength Toe Manual Muscle Testing Left Great Toe Extension 5 Normal PT-OP-Q Treatments Start: 03/05/19 07:29 Freq: Status: Active Protocol: Document 03/26/19 07:30 AMB (Rec: 03/26/19 08:06 AMB [id number]) Cardio Equipment Recumbent Stepper (Sci-Fit) Duration (Minutes) 6 Resistance 6 Gym Equipment Shuttle Recovery Bilateral Squats Resistance 100 Shuttle Recovery Platform Stable Reps/Time 5 min Therapeutic Exercises Supine Exercises 3 Supine Exercise Name SLR Reps/Minutes 2x10 2 Supine Exercise Name supine march Reps/Minutes 2x10 1 Supine Exercise Name double leg to 90-90 Comments one at a time, challenging Standing Exercises 1 Standing Exercise Name hip extension and abd t band Resistance #2 Reps/Minutes 2x10 Comments vc trunk stability Other Exercises 2 Other Exercise Name quadruped UE flex and LE ext foot slide Comments LE ext foot contact table, slowpacing PPT eccentric 1 Other Exercise Name yue pose Reps/Minutes 30x3 PT-OP-R Modalities Start: 03/05/19 07:29 Freq: Status: Active Protocol: Document 03/12/19 08:15 AMB (Rec: 03/13/19 14:32 AMB [email or web address]) Spinal Traction Traction Treatment Lumbar Method Static Patient Position Supine Force Applied (Pounds) 25 PT-OP-T Assessment and Plan Start: 03/05/19 07:29 Freq: Status: Active Protocol: Document 03/26/19 07:30 AMB (Rec: 03/26/19 08:06 AMB [id number]) Physical Therapy Assessment Assessment Summary Assessment Edith tolerated increased resistance with her exercises without a flare up in pain. Will need to follow up on how her back does with return to work. Physical Therapy Plan Next Visit Focus/Plan Next Visit Plan Follow up on tolerance to standing t band exercises: hip ext, abd. Pt doing well with sidestepping exercise at home now.
--- NOTE | 2019-04-03 09:00 | PT.OTN ---
Current Diagnoses Spondylosis without myelopathy or radiculopathy, lumbosacral region (04/03/19) Physical Therapy Treatment Note PT-OP-A Visit Information Start: 03/05/19 07:29 Freq: Status: Active Protocol: Document 04/03/19 08:20 SP (Rec: 04/03/19 09:01 SP [id number]) Out-Patient Physical Therapy Visit Information Visit Information Visit Type Treatment Note Visit Start Time 08:20 Visit Stop Time 09:00 Total Visit Minutes 40 Visit Number 8 Number of AIR AND WATER TESTER Visits 1 PT-OP-B Current Condition Start: 03/05/19 07:29 Freq: Status: Active Protocol: Document 03/05/19 08:15 AMB (Rec: 03/05/19 09:09 AMB [id number]) Current Condition History of Current Condition Onset Date 1 year ago Current Complaints back pain that radiates numbness into left great toe. History of Current Condition Edith reports a multi year history of low back pain that worsened about a year ago insidiously. 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 She does not find anything particularly helpful to reduce her pain. She did try PT years ago, and does remember the inversion table that they had was helpful. Future Testing and Treatments Planned MRI- 03/01/19: multilevel degenerative disc disease, foraminal stenosis, and facet arthorpathy, moderate central canal stenosis at L4-L5. Treatment Goals Patient/Caregiver Goals Decreae pain, go up and down stairs and walk over uneven terrain without pain Prior Functional Status Baseline Function- ADL's Independent Baseline Function- Mobility Independent Current Functional Impairments (Reported) Functional Limitations- ADL's Pt pushes through the pain to complete her work tasks and ADLs Personal Factors Other Personal Factors That May Effect type II diabetes, deperession Therapy/Recovery PT-OP-C Subjective Start: 03/05/19 07:29 Freq: Status: Active Protocol: Document 04/03/19 08:20 SP (Rec: 04/03/19 09:01 SP [id number]) OP-PT Subjective Patient Comments Patient Comments Pt stated when gets up in the morning has R knee pain and alot of stiffness. Has been walking 20-25 min then comes home and does her stretches. LB is sore and trying walking faster but is an issue. PT-OP-G Mobility & Gait Start: 03/05/19 07:29 Freq: Status: Active Protocol: Document 03/05/19 08:15 AMB (Rec: 03/07/19 15:59 AMB [email or web address]) OP Gait Assessment Comments Gait Comments decreased trunk rotation, stairs: ok with 4 steps with railings- did ascend/descend stairs with alternating gait. PT-OP-J Posture/Palpation/Skin Start: 03/05/19 07:29 Freq: Status: Active Protocol: Document 03/05/19 08:15 AMB (Rec: 03/07/19 12:51 AMB [email or web address]) Posture Evaluation Comments Posture Comments Increased lumbar lordosis Palpation Assessment Location One Palpation Location lumbar spine Palpation Details Tenderness over spinous processes throughout lumbar spine, not into sacrum or thoracic spine. No tenderness over QL, but tenderness and tightness over paraspinals. PT-OP-K Range of Motion Start: 03/05/19 07:29 Freq: Status: Active Protocol: Document 03/05/19 08:15 AMB (Rec: 03/07/19 12:51 AMB [email or web address]) Lumbar Spine Range of Motion Lumbar Spine Active Degrees Testing Position Standing Flexion 20 Extension 5 Lateral Flexion Left 5 Lateral Flexion Right 10 ROM Limitations Soft Tissue Tightness,Pain PT-OP-M Strength Start: 03/05/19 07:29 Freq: Status: Active Protocol: Document 03/05/19 08:15 AMB (Rec: 03/07/19 15:55 AMB [email or web address]) Hip Strength Hip Manual Muscle Testing Right Flexion (L2) 4 Good Left Flexion (L2) 4 Good Knee Strength Knee Manual Muscle Testing Right Flexion (S2) 5 Normal Extension (L3) 5 Normal Left Flexion (S2) 5 Normal Extension (L3) 5 Normal Ankle/Foot Strength Ankle and Foot Manual Muscle Testing Right Dorsiflexion (L4) 4+ Good+ Left Dorsiflexion (L4) 4+ Good+ Toe Strength Toe Manual Muscle Testing Left Great Toe Extension 5 Normal PT-OP-Q Treatments Start: 03/05/19 07:29 Freq: Status: Active Protocol: Document 04/03/19 08:20 SP (Rec: 04/03/19 09:01 SP [id number]) Cardio Equipment Recumbent Bicycle Duration (Minutes) 6 Resistance 3 Seat Position 3 Gym Equipment Shuttle Recovery Unilateral squat Details alternate BLE Resistance 50# Shuttle Recovery Platform Stable Reps/Time cued lateral knee alignment, small 10-70* range Bilateral Squats Resistance 100 Shuttle Recovery Platform Stable Reps/Time 3x20 reps Therapeutic Exercises Sitting Exercises QL stretch Side bilateral Reps/Minutes 30 x3 Standing Exercises [place] Ab press out TB Resistance L#2 Reps/Minutes 3x10 R and l\L Comments cued PPT, shld back/down, upright posture 1 Standing Exercise Name hip extension and abd t band Resistance #2 Reps/Minutes 2x10 Comments vc trunk stability Core side stepping Standing Exercise Name stationary press out on tension Side bilateral Resistance TB #1, #2 Reps/Minutes 10 reps each resistance Comments Cued neutral pelvis, slow pacing and avoid lateral trunk lean PT-OP-R Modalities Start: 03/05/19 07:29 Freq: Status: Active Protocol: Document 03/12/19 08:15 AMB (Rec: 03/13/19 14:32 AMB [email or web address]) Spinal Traction Traction Treatment Lumbar Method Static Patient Position Supine Force Applied (Pounds) 25 PT-OP-T Assessment and Plan Start: 03/05/19 07:29 Freq: Status: Active Protocol: Document 04/03/19 08:20 SP (Rec: 04/03/19 09:01 SP [id number]) Physical Therapy Assessment Goals Two Impairment gait Short Term Goal (STG) Edith will ambulate on smooth surfaces for 15 minutes with back pain of 2/10 or less. STG Duration 4 weeks Compounding Technician Goal (LTG) Edith will ascend and descend a standard height stairs with alternating gait pattern without an increase in back pain. LTG Duration 8 weeks One Impairment ROM Short Term Goal (STG) Edith will increase her lumbar flexion to 45 degrees. STG Duration 4 weeks Prison Goal (LTG) Edith will improve her lumbar extension to 15 degrees. LTG Duration 8 weeks Assessment Summary Assessment Edith tolerated single shuttle recovery required contact cuing for lateral knee alignment to decrease valgus cave and medial VMO irritation with small range 10 -70*. Added stationary press outs for core obique with positive results, was able to tolerate increase #2 TB today. I can feel the side abs working more after added resistance, helpful. Physical Therapy Plan Frequency and Duration Frequency of Treatment 2x/Week Duration of Treatment 8 weeks Plan of Care Start Date 03/05/19 Plan of Care End Date 04/30/19 Therapeutic Interventions Therapeutic Interventions Aquatic Therapy,Gait Training, Home Exercise Program,Joint Mobilizations,Manual Therapy, Neuromuscular Re-education, Self-Care/Home Management, Therapeutic Activities, Therapeutic Exercises Modalities Cold Pack/Ice Massage,Electric Stimulation,Hot Packs, Traction- Mechanical Next Visit Focus/Plan Next Visit Plan Assess increased resitance side stepping core and added press outs stationary. Continue per PT POC: Progress core stabilization HEP.
--- NOTE | 2019-04-06 08:15 | PT.OTN ---
Current Diagnoses Spondylosis without myelopathy or radiculopathy, lumbosacral region (04/06/19) Physical Therapy Treatment Note PT-OP-A Visit Information Start: 03/05/19 07:29 Freq: Status: Active Protocol: Document 04/06/19 07:32 SP (Rec: 04/06/19 08:16 SP [id number]) Out-Patient Physical Therapy Visit Information Visit Information Visit Type Treatment Note Visit Start Time 07:32 Visit Stop Time 08:15 Total Visit Minutes 43 Visit Number 9 Number of SHAREPOINT SOLUTIONS ARCHITECT Visits 2 PT-OP-B Current Condition Start: 03/05/19 07:29 Freq: Status: Active Protocol: Document 03/05/19 08:15 AMB (Rec: 03/05/19 09:09 AMB [id number]) Current Condition History of Current Condition Onset Date 1 year ago Current Complaints back pain that radiates numbness into left great toe. History of Current Condition Edith reports a multi year history of low back pain that worsened about a year ago insidiously. 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 She does not find anything particularly helpful to reduce her pain. She did try PT years ago, and does remember the inversion table that they had was helpful. Future Testing and Treatments Planned MRI- 03/01/19: multilevel degenerative disc disease, foraminal stenosis, and facet arthorpathy, moderate central canal stenosis at L4-L5. Treatment Goals Patient/Caregiver Goals Decreae pain, go up and down stairs and walk over uneven terrain without pain Prior Functional Status Baseline Function- ADL's Independent Baseline Function- Mobility Independent Current Functional Impairments (Reported) Functional Limitations- ADL's Pt pushes through the pain to complete her work tasks and ADLs Personal Factors Other Personal Factors That May Effect type II diabetes, deperession Therapy/Recovery PT-OP-C Subjective Start: 03/05/19 07:29 Freq: Status: Active Protocol: Document 04/06/19 07:32 SP (Rec: 04/06/19 08:16 SP [id number]) OP-PT Subjective Patient Comments Patient Comments Pt stated stated no pain pre PT, exercises going well. No concerns or changes to report. PT-OP-G Mobility & Gait Start: 03/05/19 07:29 Freq: Status: Active Protocol: Document 03/05/19 08:15 AMB (Rec: 03/07/19 15:59 AMB [email or web address]) OP Gait Assessment Comments Gait Comments decreased trunk rotation, stairs: ok with 4 steps with railings- did ascend/descend stairs with alternating gait. PT-OP-J Posture/Palpation/Skin Start: 03/05/19 07:29 Freq: Status: Active Protocol: Document 03/05/19 08:15 AMB (Rec: 03/07/19 12:51 AMB [email or web address]) Posture Evaluation Comments Posture Comments Increased lumbar lordosis Palpation Assessment Location One Palpation Location lumbar spine Palpation Details Tenderness over spinous processes throughout lumbar spine, not into sacrum or thoracic spine. No tenderness over QL, but tenderness and tightness over paraspinals. PT-OP-K Range of Motion Start: 03/05/19 07:29 Freq: Status: Active Protocol: Document 03/05/19 08:15 AMB (Rec: 03/07/19 12:51 AMB [email or web address]) Lumbar Spine Range of Motion Lumbar Spine Active Degrees Testing Position Standing Flexion 20 Extension 5 Lateral Flexion Left 5 Lateral Flexion Right 10 ROM Limitations Soft Tissue Tightness,Pain PT-OP-M Strength Start: 03/05/19 07:29 Freq: Status: Active Protocol: Document 03/05/19 08:15 AMB (Rec: 03/07/19 15:55 AMB [email or web address]) Hip Strength Hip Manual Muscle Testing Right Flexion (L2) 4 Good Left Flexion (L2) 4 Good Knee Strength Knee Manual Muscle Testing Right Flexion (S2) 5 Normal Extension (L3) 5 Normal Left Flexion (S2) 5 Normal Extension (L3) 5 Normal Ankle/Foot Strength Ankle and Foot Manual Muscle Testing Right Dorsiflexion (L4) 4+ Good+ Left Dorsiflexion (L4) 4+ Good+ Toe Strength Toe Manual Muscle Testing Left Great Toe Extension 5 Normal PT-OP-Q Treatments Start: 03/05/19 07:29 Freq: Status: Active Protocol: Document 04/06/19 07:32 SP (Rec: 04/06/19 08:16 SP [id number]) Cardio Equipment Recumbent Bicycle Duration (Minutes) 8 Resistance 4 Seat Position 3 Gym Equipment Shuttle Recovery Unilateral squat Details alternate BLE 2x10 Resistance 50# Shuttle Recovery Platform Stable Reps/Time cued lateral knee alignment, small 10-70* range Bilateral Squats Resistance 100 Shuttle Recovery Platform Stable Reps/Time 3x20 reps Therapeutic Exercises Supine Exercises bridge Reps/Minutes 2x5 Comments cued PPT and glut facilitation heel press lumbar stretch Supine Exercise Name LTR Side bilateral Reps/Minutes 20 x2 1 Supine Exercise Name double leg to 90-90 Reps/Minutes x5 Comments challenging, cued lower ribcage toward table spinal stabilization Standing Exercises [place] Ab press out TB Standing Exercise Name side step 3steps, x10 press outs repeat x3 Comments cued soft knee bend and PPT 1 Standing Exercise Name hip extension and abd t band Resistance #2 Reps/Minutes 2x10 Comments vc trunk stability Other Exercises core lifting wt basket squat Other Exercise Name assimulate laundry carrying Reps/Minutes 7 # DB Comments cued back alignment, posterior squat on/off floor place on chair PT-OP-R Modalities Start: 03/05/19 07:29 Freq: Status: Active Protocol: Document 03/12/19 08:15 AMB (Rec: 03/13/19 14:32 AMB [email or web address]) Spinal Traction Traction Treatment Lumbar Method Static Patient Position Supine Force Applied (Pounds) 25 PT-OP-T Assessment and Plan Start: 03/05/19 07:29 Freq: Status: Active Protocol: Document 04/06/19 07:32 SP (Rec: 04/06/19 08:16 SP [id number]) Physical Therapy Assessment Goals Two Impairment gait Short Term Goal (STG) Edith will ambulate on smooth surfaces for 15 minutes with back pain of 2/10 or less. STG Duration 4 weeks Correction Goal (LTG) Edith will ascend and descend a standard height stairs with alternating gait pattern without an increase in back pain. LTG Duration 8 weeks One Impairment ROM Short Term Goal (STG) Edith will increase her lumbar flexion to 45 degrees. STG Duration 4 weeks Spin Instructor Goal (LTG) Edith will improve her lumbar extension to 15 degrees. LTG Duration 8 weeks Assessment Summary Assessment Reviewed HEP: supine core DKTC , bridge, quadruped bird dog LE contact table, LS rotation stretch, Stand: core side step /press out, hip abd/ext, squat lifting wt basket proper body mechanics. Positive feedback no pain, improved PPT alignment noted. Will bring HEP sheets to [place] other not listed and cued if needed (see chart). Physical Therapy Plan Frequency and Duration Frequency of Treatment 2x/Week Duration of Treatment 8 weeks Plan of Care Start Date 03/05/19 Plan of Care End Date 04/30/19 Therapeutic Interventions Therapeutic Interventions Aquatic Therapy,Gait Training, Home Exercise Program,Joint Mobilizations,Manual Therapy, Neuromuscular Re-education, Self-Care/Home Management, Therapeutic Activities, Therapeutic Exercises Modalities Cold Pack/Ice Massage,Electric Stimulation,Hot Packs, Traction- Mechanical Next Visit Focus/Plan Next Visit Plan Assess response last tx. see Assessment. Continue per PT POC: Progress core stabilization HEP.
--- NOTE | 2019-04-09 08:45 | PT.OTN ---
Current Diagnoses Spondylosis without myelopathy or radiculopathy, lumbosacral region (04/09/19) Physical Therapy Treatment Note PT-OP-A Visit Information Start: 03/05/19 07:29 Freq: Status: Active Protocol: Document 04/09/19 07:30 AMB (Rec: 04/09/19 08:44 AMB [id number]) Out-Patient Physical Therapy Visit Information Visit Information Visit Type Treatment Note Visit Start Time 07:30 Visit Stop Time 08:13 Total Visit Minutes 43 Visit Number 10 Number of GREY IRON MOLDER Visits 0 PT-OP-B Current Condition Start: 03/05/19 07:29 Freq: Status: Active Protocol: Document 03/05/19 08:15 AMB (Rec: 03/05/19 09:09 AMB [id number]) Current Condition History of Current Condition Onset Date 1 year ago Current Complaints back pain that radiates numbness into left great toe. History of Current Condition Edith reports a multi year history of low back pain that worsened about a year ago insidiously. 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 She does not find anything particularly helpful to reduce her pain. She did try PT years ago, and does remember the inversion table that they had was helpful. Future Testing and Treatments Planned MRI- 03/01/19: multilevel degenerative disc disease, foraminal stenosis, and facet arthorpathy, moderate central canal stenosis at L4-L5. Treatment Goals Patient/Caregiver Goals Decreae pain, go up and down stairs and walk over uneven terrain without pain Prior Functional Status Baseline Function- ADL's Independent Baseline Function- Mobility Independent Current Functional Impairments (Reported) Functional Limitations- ADL's Pt pushes through the pain to complete her work tasks and ADLs Personal Factors Other Personal Factors That May Effect type II diabetes, deperession Therapy/Recovery PT-OP-C Subjective Start: 03/05/19 07:29 Freq: Status: Active Protocol: Document 04/09/19 07:30 AMB (Rec: 04/09/19 08:44 AMB [id number]) OP-PT Subjective Patient Comments Patient Comments Pt reports some wrist discomfort, worried about quadruped exercises might be exacerbating it. PT-OP-G Mobility & Gait Start: 03/05/19 07:29 Freq: Status: Active Protocol: Document 03/05/19 08:15 AMB (Rec: 03/07/19 15:59 AMB [email or web address]) OP Gait Assessment Comments Gait Comments decreased trunk rotation, stairs: ok with 4 steps with railings- did ascend/descend stairs with alternating gait. PT-OP-J Posture/Palpation/Skin Start: 03/05/19 07:29 Freq: Status: Active Protocol: Document 03/05/19 08:15 AMB (Rec: 03/07/19 12:51 AMB [email or web address]) Posture Evaluation Comments Posture Comments Increased lumbar lordosis Palpation Assessment Location One Palpation Location lumbar spine Palpation Details Tenderness over spinous processes throughout lumbar spine, not into sacrum or thoracic spine. No tenderness over QL, but tenderness and tightness over paraspinals. PT-OP-K Range of Motion Start: 03/05/19 07:29 Freq: Status: Active Protocol: Document 03/05/19 08:15 AMB (Rec: 03/07/19 12:51 AMB [email or web address]) Lumbar Spine Range of Motion Lumbar Spine Active Degrees Testing Position Standing Flexion 20 Extension 5 Lateral Flexion Left 5 Lateral Flexion Right 10 ROM Limitations Soft Tissue Tightness,Pain PT-OP-M Strength Start: 03/05/19 07:29 Freq: Status: Active Protocol: Document 03/05/19 08:15 AMB (Rec: 03/07/19 15:55 AMB [email or web address]) Hip Strength Hip Manual Muscle Testing Right Flexion (L2) 4 Good Left Flexion (L2) 4 Good Knee Strength Knee Manual Muscle Testing Right Flexion (S2) 5 Normal Extension (L3) 5 Normal Left Flexion (S2) 5 Normal Extension (L3) 5 Normal Ankle/Foot Strength Ankle and Foot Manual Muscle Testing Right Dorsiflexion (L4) 4+ Good+ Left Dorsiflexion (L4) 4+ Good+ Toe Strength Toe Manual Muscle Testing Left Great Toe Extension 5 Normal PT-OP-Q Treatments Start: 03/05/19 07:29 Freq: Status: Active Protocol: Document 04/09/19 07:30 AMB (Rec: 04/09/19 08:44 AMB [id number]) Therapeutic Exercises Supine Exercises lumbar stretch Supine Exercise Name LTR Side bilateral Reps/Minutes 20 x2 1 Supine Exercise Name double leg to 90-90 Reps/Minutes x5 Comments removed from HEP as abdominals do bulge out Sitting Exercises QL stretch Side bilateral Reps/Minutes 30 x3 Standing Exercises [place] Ab press out TB Standing Exercise Name side step 3steps, x10 press outs repeat x3 Comments cued soft knee bend and PPT 1 Standing Exercise Name hip extension and abd t band Resistance #2 Reps/Minutes 2x10 Comments vc trunk stability Other Exercises core lifting wt basket squat Other Exercise Name simulate laundry carrying Reps/Minutes 7 # DB Comments cued back alignment, posterior squat on/off floor place on chair PT-OP-R Modalities Start: 03/05/19 07:29 Freq: Status: Active Protocol: Document 03/12/19 08:15 AMB (Rec: 03/13/19 14:32 AMB [email or web address]) Spinal Traction Traction Treatment Lumbar Method Static Patient Position Supine Force Applied (Pounds) 25 PT-OP-T Assessment and Plan Start: 03/05/19 07:29 Freq: Status: Active Protocol: Document 04/09/19 07:30 AMB (Rec: 04/09/19 08:44 AMB [id number]) Physical Therapy Assessment Goals Two Impairment gait Short Term Goal (STG) Edith will ambulate on smooth surfaces for 15 minutes with back pain of 2/10 or less. STG Duration 4 weeks Hanging Flags Decorator Goal (LTG) Edith will ascend and descend a standard height stairs with alternating gait pattern without an increase in back pain. LTG Duration 8 weeks One Impairment ROM Short Term Goal (STG) Edith will increase her lumbar flexion to 45 degrees. STG Duration 4 weeks Assisted Goal (LTG) Edith will improve her lumbar extension to 15 degrees. LTG Duration 8 weeks Assessment Summary Assessment Reviewed pt handouts of HEP. Given pt options to keep wrist neutral with quadruped Physical Therapy Plan Frequency and Duration Frequency of Treatment 2x/Week Duration of Treatment 8 weeks Plan of Care Start Date 03/05/19 Plan of Care End Date 04/30/19 Therapeutic Interventions Therapeutic Interventions Aquatic Therapy,Gait Training, Home Exercise Program,Joint Mobilizations,Manual Therapy, Neuromuscular Re-education, Self-Care/Home Management, Therapeutic Activities, Therapeutic Exercises Modalities Cold Pack/Ice Massage,Electric Stimulation,Hot Packs, Traction- Mechanical Next Visit Focus/Plan Next Note Type Treatment Note Next Visit Plan Pt doing well with current HEP but did modify to keep number of exercises under control.
--- NOTE | 2019-04-18 09:07 | PT.OTN ---
Current Diagnoses Spondylosis without myelopathy or radiculopathy, lumbosacral region (04/18/19) Physical Therapy Treatment Note PT-OP-A Visit Information Start: 03/05/19 07:29 Freq: Status: Active Protocol: Document 04/18/19 08:21 SP (Rec: 04/18/19 10:26 SP [id number]) Out-Patient Physical Therapy Visit Information Visit Information Visit Type Treatment Note Visit Start Time 08:21 Visit Stop Time 09:07 Total Visit Minutes 46 Visit Number 11 Number of BRUSH STAINER Visits 1 PT-OP-B Current Condition Start: 03/05/19 07:29 Freq: Status: Active Protocol: Document 03/05/19 08:15 AMB (Rec: 03/05/19 09:09 AMB [id number]) Current Condition History of Current Condition Onset Date 1 year ago Current Complaints back pain that radiates numbness into left great toe. History of Current Condition Edith reports a multi year history of low back pain that worsened about a year ago insidiously. 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 She does not find anything particularly helpful to reduce her pain. She did try PT years ago, and does remember the inversion table that they had was helpful. Future Testing and Treatments Planned MRI- 03/01/19: multilevel degenerative disc disease, foraminal stenosis, and facet arthorpathy, moderate central canal stenosis at L4-L5. Treatment Goals Patient/Caregiver Goals Decreae pain, go up and down stairs and walk over uneven terrain without pain Prior Functional Status Baseline Function- ADL's Independent Baseline Function- Mobility Independent Current Functional Impairments (Reported) Functional Limitations- ADL's Pt pushes through the pain to complete her work tasks and ADLs Personal Factors Other Personal Factors That May Effect type II diabetes, deperession Therapy/Recovery PT-OP-C Subjective Start: 03/05/19 07:29 Freq: Status: Active Protocol: Document 04/18/19 08:21 SP (Rec: 04/18/19 10:26 SP [id number]) OP-PT Subjective Patient Comments Patient Comments Pt reported was more sore and LBP last week due to having to shovel but mostly stiff pre PT today. Pt stated is using yoga mat on floor for cushion of knees during bird dog. PT-OP-G Mobility & Gait Start: 03/05/19 07:29 Freq: Status: Active Protocol: Document 03/05/19 08:15 AMB (Rec: 03/07/19 15:59 AMB [email or web address]) OP Gait Assessment Comments Gait Comments decreased trunk rotation, stairs: ok with 4 steps with railings- did ascend/descend stairs with alternating gait. PT-OP-J Posture/Palpation/Skin Start: 03/05/19 07:29 Freq: Status: Active Protocol: Document 03/05/19 08:15 AMB (Rec: 03/07/19 12:51 AMB [email or web address]) Posture Evaluation Comments Posture Comments Increased lumbar lordosis Palpation Assessment Location One Palpation Location lumbar spine Palpation Details Tenderness over spinous processes throughout lumbar spine, not into sacrum or thoracic spine. No tenderness over QL, but tenderness and tightness over paraspinals. PT-OP-K Range of Motion Start: 03/05/19 07:29 Freq: Status: Active Protocol: Document 03/05/19 08:15 AMB (Rec: 03/07/19 12:51 AMB [email or web address]) Lumbar Spine Range of Motion Lumbar Spine Active Degrees Testing Position Standing Flexion 20 Extension 5 Lateral Flexion Left 5 Lateral Flexion Right 10 ROM Limitations Soft Tissue Tightness,Pain PT-OP-M Strength Start: 03/05/19 07:29 Freq: Status: Active Protocol: Document 03/05/19 08:15 AMB (Rec: 03/07/19 15:55 AMB [email or web address]) Hip Strength Hip Manual Muscle Testing Right Flexion (L2) 4 Good Left Flexion (L2) 4 Good Knee Strength Knee Manual Muscle Testing Right Flexion (S2) 5 Normal Extension (L3) 5 Normal Left Flexion (S2) 5 Normal Extension (L3) 5 Normal Ankle/Foot Strength Ankle and Foot Manual Muscle Testing Right Dorsiflexion (L4) 4+ Good+ Left Dorsiflexion (L4) 4+ Good+ Toe Strength Toe Manual Muscle Testing Left Great Toe Extension 5 Normal PT-OP-Q Treatments Start: 03/05/19 07:29 Freq: Status: Active Protocol: Document 04/18/19 08:21 SP (Rec: 04/18/19 10:26 SP [id number]) Cardio Equipment Elliptical Duration (Minutes) 2 Resistance 2 Other cued slow pacing control PPT awareness Gym Equipment Shuttle Recovery Unilateral squat Details alternate BLE 2x10 Resistance 50# Shuttle Recovery Platform Stable Reps/Time cued lateral knee alignment, small 10-70* range Bilateral Squats Resistance 100# Shuttle Recovery Platform Stable Reps/Time 3x20 reps Therapeutic Exercises Supine Exercises D2 flex foam roller Supine Exercise Name vertical roller: HABD and D2 flexion Side bilateral Resistance TB #1 Equipment Used foam roller Reps/Minutes 2x10 each Comments cued PPT (lower ribcage awareness toward roller) foam roller TS ext and roll Supine Exercise Name horizontal mid back, butt on floor Reps/Minutes 2 min Comments cued PPT and minimal TS ext foam roller pec stretch Side bilateral Reps/Minutes x3 lumbar stretch Supine Exercise Name LTR Side bilateral Reps/Minutes 20 x2 Other Exercises quadruped bird dog Reps/Minutes 2x5 core lifting wt basket squat Other Exercise Name simulate laundry carrying Reps/Minutes 8# DB x5, 10 # x5 Comments cued back alignment, posterior squat on/off floor place on chair 1 Other Exercise Name child's pose with side bend Side bilateral Reps/Minutes 30 x2 PT-OP-R Modalities Start: 03/05/19 07:29 Freq: Status: Active Protocol: Document 03/12/19 08:15 AMB (Rec: 03/13/19 14:32 AMB [email or web address]) Spinal Traction Traction Treatment Lumbar Method Static Patient Position Supine Force Applied (Pounds) 25 PT-OP-T Assessment and Plan Start: 03/05/19 07:29 Freq: Status: Active Protocol: Document 04/18/19 08:21 SP (Rec: 04/18/19 10:26 SP [id number]) Physical Therapy Assessment Goals Two Impairment gait Short Term Goal (STG) Edith will ambulate on smooth surfaces for 15 minutes with back pain of 2/10 or less. STG Duration 4 weeks Nursing Home Goal (LTG) Edith will ascend and descend a standard height stairs with alternating gait pattern without an increase in back pain. LTG Duration 8 weeks One Impairment ROM Short Term Goal (STG) Edith will increase her lumbar flexion to 45 degrees. STG Duration 4 weeks Rail Transportation Operator Goal (LTG) Edith will improve her lumbar extension to 15 degrees. LTG Duration 8 weeks Assessment Summary Assessment Pt responded well to ther ex, Reviewed HEP supine table, and quadruped bird dog, introduced use of foam roller per patient request has at home and wants to use with positive results. Pt stated feels more loosened up end of tx. Physical Therapy Plan Frequency and Duration Frequency of Treatment 2x/Week Duration of Treatment 8 weeks Plan of Care Start Date 03/05/19 Plan of Care End Date 04/30/19 Therapeutic Interventions Therapeutic Interventions Aquatic Therapy,Gait Training, Home Exercise Program,Joint Mobilizations,Manual Therapy, Neuromuscular Re-education, Self-Care/Home Management, Therapeutic Activities, Therapeutic Exercises Modalities Cold Pack/Ice Massage,Electric Stimulation,Hot Packs, Traction- Mechanical Next Visit Focus/Plan Next Note Type Treatment Note Next Visit Plan Assess response to added foam roller for safety home use per patient request has: reviewed HEP restricted last tx. Incorporated TS mobillity today with foam roller. Per PT: Pt doing well with current HEP but did modify to keep number of exercises under control.
--- NOTE | 2019-04-23 09:00 | PT.OTN ---
Current Diagnoses Spondylosis without myelopathy or radiculopathy, lumbosacral region (04/23/19) Physical Therapy Treatment Note PT-OP-A Visit Information Start: 03/05/19 07:29 Freq: Status: Active Protocol: Document 04/23/19 07:30 AMB (Rec: 04/23/19 09:00 AMB [id number]) Out-Patient Physical Therapy Visit Information Visit Information Visit Type Treatment Note Visit Start Time 07:30 Visit Stop Time 08:15 Total Visit Minutes 45 Visit Number 12 Number of MILLWRIGHT Visits 0 PT-OP-B Current Condition Start: 03/05/19 07:29 Freq: Status: Active Protocol: Document 03/05/19 08:15 AMB (Rec: 03/05/19 09:09 AMB [id number]) Current Condition History of Current Condition Onset Date 1 year ago Current Complaints back pain that radiates numbness into left great toe. History of Current Condition Edith reports a multi year history of low back pain that worsened about a year ago insidiously. 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 She does not find anything particularly helpful to reduce her pain. She did try PT years ago, and does remember the inversion table that they had was helpful. Future Testing and Treatments Planned MRI- 03/01/19: multilevel degenerative disc disease, foraminal stenosis, and facet arthorpathy, moderate central canal stenosis at L4-L5. Treatment Goals Patient/Caregiver Goals Decreae pain, go up and down stairs and walk over uneven terrain without pain Prior Functional Status Baseline Function- ADL's Independent Baseline Function- Mobility Independent Current Functional Impairments (Reported) Functional Limitations- ADL's Pt pushes through the pain to complete her work tasks and ADLs Personal Factors Other Personal Factors That May Effect type II diabetes, deperession Therapy/Recovery PT-OP-C Subjective Start: 03/05/19 07:29 Freq: Status: Active Protocol: Document 04/23/19 07:30 AMB (Rec: 04/23/19 09:00 AMB [id number]) OP-PT Subjective Patient Comments Patient Comments PT reported increased sciatica in the right leg on Tuesday, not sure why. Went down into glut, ant thigh down to knee, pt reports difficulty walking that day, took tylenol and can still feel it a little bit , but doing better. PT-OP-G Mobility & Gait Start: 03/05/19 07:29 Freq: Status: Active Protocol: Document 03/05/19 08:15 AMB (Rec: 03/07/19 15:59 AMB [email or web address]) OP Gait Assessment Comments Gait Comments decreased trunk rotation, stairs: ok with 4 steps with railings- did ascend/descend stairs with alternating gait. PT-OP-J Posture/Palpation/Skin Start: 03/05/19 07:29 Freq: Status: Active Protocol: Document 03/05/19 08:15 AMB (Rec: 03/07/19 12:51 AMB [email or web address]) Posture Evaluation Comments Posture Comments Increased lumbar lordosis Palpation Assessment Location One Palpation Location lumbar spine Palpation Details Tenderness over spinous processes throughout lumbar spine, not into sacrum or thoracic spine. No tenderness over QL, but tenderness and tightness over paraspinals. PT-OP-K Range of Motion Start: 03/05/19 07:29 Freq: Status: Active Protocol: Document 03/05/19 08:15 AMB (Rec: 03/07/19 12:51 AMB [email or web address]) Lumbar Spine Range of Motion Lumbar Spine Active Degrees Testing Position Standing Flexion 20 Extension 5 Lateral Flexion Left 5 Lateral Flexion Right 10 ROM Limitations Soft Tissue Tightness,Pain PT-OP-M Strength Start: 03/05/19 07:29 Freq: Status: Active Protocol: Document 03/05/19 08:15 AMB (Rec: 03/07/19 15:55 AMB [email or web address]) Hip Strength Hip Manual Muscle Testing Right Flexion (L2) 4 Good Left Flexion (L2) 4 Good Knee Strength Knee Manual Muscle Testing Right Flexion (S2) 5 Normal Extension (L3) 5 Normal Left Flexion (S2) 5 Normal Extension (L3) 5 Normal Ankle/Foot Strength Ankle and Foot Manual Muscle Testing Right Dorsiflexion (L4) 4+ Good+ Left Dorsiflexion (L4) 4+ Good+ Toe Strength Toe Manual Muscle Testing Left Great Toe Extension 5 Normal PT-OP-Q Treatments Start: 03/05/19 07:29 Freq: Status: Active Protocol: Document 04/23/19 07:30 AMB (Rec: 04/23/19 09:00 AMB [id number]) Therapeutic Exercises Supine Exercises foam roller TS ext and roll Supine Exercise Name horizontal mid back, butt on floor Reps/Minutes 2 min Comments cued PPT and minimal TS ext foam roller pec stretch Side bilateral Reps/Minutes x3 bridge Reps/Minutes 10 Comments pain when coming back down 2 Supine Exercise Name pelvic tilt Reps/Minutes 5 min Comments with vc breath, vc to avoid pain Standing Exercises 2 Standing Exercise Name standing with TA, neutral spine Reps/Minutes 3 min Other Exercises 1 Other Exercise Name child's pose with side bend Side bilateral Reps/Minutes 30 x2 Comments pt needed extensive cues to get lumbar neutral and avoid thoracic extension PT-OP-R Modalities Start: 03/05/19 07:29 Freq: Status: Active Protocol: Document 03/12/19 08:15 AMB (Rec: 03/13/19 14:32 AMB [email or web address]) Spinal Traction Traction Treatment Lumbar Method Static Patient Position Supine Force Applied (Pounds) 25 PT-OP-T Assessment and Plan Start: 03/05/19 07:29 Freq: Status: Active Protocol: Document 04/23/19 07:30 AMB (Rec: 04/23/19 09:00 AMB [id number]) Physical Therapy Assessment Assessment Summary Assessment Decreased intensity of ther ex today due to flare up of pain on Tuesday. Worked more on feeling TA and finding neutral spine today. Physical Therapy Plan Next Visit Focus/Plan Next Note Type Treatment Note Next Visit Plan Pt is changing her work schedule so she is going to have to see multiple therapists over the next few weeks due to needing afternoon appointments. We have been working on core stability and finding neutral spine with supine, quadruped and functional activities including squatting and lifting due to pt's work.
--- NOTE | 2019-04-26 15:30 | PT.OTN ---
Current Diagnoses Spondylosis without myelopathy or radiculopathy, lumbosacral region (04/26/19) Physical Therapy Treatment Note PT-OP-A Visit Information Start: 03/05/19 07:29 Freq: Status: Active Protocol: Document 04/26/19 14:04 EG (Rec: 04/26/19 14:29 EG [email or web address]) Out-Patient Physical Therapy Visit Information Visit Information Visit Type Treatment Note Visit Start Time 08:30 Visit Stop Time 09:45 Total Visit Minutes 45 Visit Number 13 Number of PATTERNMAKER PLASTER Visits 0 PT-OP-B Current Condition Start: 03/05/19 07:29 Freq: Status: Active Protocol: Document 03/05/19 08:15 AMB (Rec: 03/05/19 09:09 AMB [id number]) Current Condition History of Current Condition Onset Date 1 year ago Current Complaints back pain that radiates numbness into left great toe. History of Current Condition Edith reports a multi year history of low back pain that worsened about a year ago insidiously. 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 She does not find anything particularly helpful to reduce her pain. She did try PT years ago, and does remember the inversion table that they had was helpful. Future Testing and Treatments Planned MRI- 03/01/19: multilevel degenerative disc disease, foraminal stenosis, and facet arthorpathy, moderate central canal stenosis at L4-L5. Treatment Goals Patient/Caregiver Goals Decreae pain, go up and down stairs and walk over uneven terrain without pain Prior Functional Status Baseline Function- ADL's Independent Baseline Function- Mobility Independent Current Functional Impairments (Reported) Functional Limitations- ADL's Pt pushes through the pain to complete her work tasks and ADLs Personal Factors Other Personal Factors That May Effect type II diabetes, deperession Therapy/Recovery PT-OP-C Subjective Start: 03/05/19 07:29 Freq: Status: Active Protocol: Document 04/26/19 14:04 EG (Rec: 04/26/19 14:29 EG [email or web address]) OP-PT Subjective Patient Comments Patient Comments Patient reported that she has been feeling a burning in her low back that seems to have spread to both sides of the low back. This pain has not been keeping her up at night and seems to be aggravated the most when vacuuming or sweeping in small rooms. The patient thinks that she is getting worse. Patient Reported Progress Worse PT-OP-G Mobility & Gait Start: 03/05/19 07:29 Freq: Status: Active Protocol: Document 03/05/19 08:15 AMB (Rec: 03/07/19 15:59 AMB [email or web address]) OP Gait Assessment Comments Gait Comments decreased trunk rotation, stairs: ok with 4 steps with railings- did ascend/descend stairs with alternating gait. PT-OP-J Posture/Palpation/Skin Start: 03/05/19 07:29 Freq: Status: Active Protocol: Document 03/05/19 08:15 AMB (Rec: 03/07/19 12:51 AMB [email or web address]) Posture Evaluation Comments Posture Comments Increased lumbar lordosis Palpation Assessment Location One Palpation Location lumbar spine Palpation Details Tenderness over spinous processes throughout lumbar spine, not into sacrum or thoracic spine. No tenderness over QL, but tenderness and tightness over paraspinals. PT-OP-K Range of Motion Start: 03/05/19 07:29 Freq: Status: Active Protocol: Document 03/05/19 08:15 AMB (Rec: 03/07/19 12:51 AMB [email or web address]) Lumbar Spine Range of Motion Lumbar Spine Active Degrees Testing Position Standing Flexion 20 Extension 5 Lateral Flexion Left 5 Lateral Flexion Right 10 ROM Limitations Soft Tissue Tightness,Pain PT-OP-M Strength Start: 03/05/19 07:29 Freq: Status: Active Protocol: Document 03/05/19 08:15 AMB (Rec: 03/07/19 15:55 AMB [email or web address]) Hip Strength Hip Manual Muscle Testing Right Flexion (L2) 4 Good Left Flexion (L2) 4 Good Knee Strength Knee Manual Muscle Testing Right Flexion (S2) 5 Normal Extension (L3) 5 Normal Left Flexion (S2) 5 Normal Extension (L3) 5 Normal Ankle/Foot Strength Ankle and Foot Manual Muscle Testing Right Dorsiflexion (L4) 4+ Good+ Left Dorsiflexion (L4) 4+ Good+ Toe Strength Toe Manual Muscle Testing Left Great Toe Extension 5 Normal PT-OP-Q Treatments Start: 03/05/19 07:29 Freq: Status: Active Protocol: Document 04/26/19 14:04 EG (Rec: 04/26/19 14:29 EG [email or web address]) Cardio Equipment Treadmill Duration (Minutes) 5 Speed 1.5 Incline .5 Therapeutic Exercises Supine Exercises 2 Supine Exercise Name pelvic tilt Reps/Minutes 2 min Comments with vc breath, vc to avoid pain 1 Supine Exercise Name bilateral and unilateral knee to chest Reps/Minutes 10x each Sitting Exercises Spinal ROM Sitting Exercise Name Spinal ROM (flexion, extension , rotation) Side bilateral Reps/Minutes 20 sec hold; flex/ext - 8x Comments seated at mat table Standing Exercises 2 Standing Exercise Name Standing spinal extensor stretch Side bilateral Reps/Minutes 5x hold for 10 seconds Comments bending knees, bent over with hands on wall for back stretch Manual Therapy Treatment Soft Tissue Mobilization Lumbar Erector Spinae - Sacral Traction Body Location Low back Mobilization Type Myofascial Release,Other Intensity/Depth Moderate Body Position Prone Comments myofascial release of bilateral erector spinae; traction unilateral on both sides between lumbar and sacral area - 15 min Manual Traction Low back Details Low back traction Reps/Duration 10 min Comments mob belt below patient knees; patient in hook lying; felt more benefit from decreased knee flexion. Bolster under patient sacrum PT-OP-R Modalities Start: 03/05/19 07:29 Freq: Status: Active Protocol: Document 03/12/19 08:15 AMB (Rec: 03/13/19 14:32 AMB [email or web address]) Spinal Traction Traction Treatment Lumbar Method Static Patient Position Supine Force Applied (Pounds) 25 PT-OP-T Assessment and Plan Start: 03/05/19 07:29 Freq: Status: Active Protocol: Document 04/26/19 14:04 EG (Rec: 04/26/19 14:29 EG [email or web address]) Physical Therapy Assessment Assessment Summary Assessment Patient tolerated PT treatment fair today. She had increased symptoms in the low back today and did not tolerate ther ex as well. She did have decreased symptoms after manual traction and patient was advised to use her mechanical traction machine at home to help further relieve symptoms. Patient is also experiencing increased tension in bilateral erector spinae from L2 to sacrum. Patient will continue to benefit from soft tissue release of this area as well as continual core strengthening and functional mobility. Physical Therapy Plan Next Visit Focus/Plan Next Note Type Treatment Note Next Visit Plan Assess how patient's symptoms are. Assess how mechanical traction has been at home. Continue strength training as tolerated. Work on rotational movements with good form. Claudia Chua, HERNANDEZT, supervised all treatment performed by, and agreed with the plan of care, as performed by NATASHA Raygoza.
--- NOTE | 2019-04-30 15:18 | PT.OTN ---
Current Diagnoses Spondylosis without myelopathy or radiculopathy, lumbosacral region (04/30/19) Physical Therapy Treatment Note PT-OP-A Visit Information Start: 03/05/19 07:29 Freq: Status: Active Protocol: Document 04/30/19 14:24 LRN (Rec: 04/30/19 15:18 LRN [id number]) Out-Patient Physical Therapy Visit Information Visit Information Visit Type Treatment Note Visit Start Time 14:24 Visit Stop Time 15:03 Total Visit Minutes 39 Visit Number 14 Number of CAKE [employer]ER Visits 0 PT-OP-B Current Condition Start: 03/05/19 07:29 Freq: Status: Active Protocol: Document 03/05/19 08:15 AMB (Rec: 03/05/19 09:09 AMB [id number]) Current Condition History of Current Condition Onset Date 1 year ago Current Complaints back pain that radiates numbness into left great toe. History of Current Condition Edith reports a multi year history of low back pain that worsened about a year ago insidiously. 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 She does not find anything particularly helpful to reduce her pain. She did try PT years ago, and does remember the inversion table that they had was helpful. Future Testing and Treatments Planned MRI- 03/01/19: multilevel degenerative disc disease, foraminal stenosis, and facet arthorpathy, moderate central canal stenosis at L4-L5. Treatment Goals Patient/Caregiver Goals Decreae pain, go up and down stairs and walk over uneven terrain without pain Prior Functional Status Baseline Function- ADL's Independent Baseline Function- Mobility Independent Current Functional Impairments (Reported) Functional Limitations- ADL's Pt pushes through the pain to complete her work tasks and ADLs Personal Factors Other Personal Factors That May Effect type II diabetes, deperession Therapy/Recovery PT-OP-C Subjective Start: 03/05/19 07:29 Freq: Status: Active Protocol: Document 04/30/19 14:24 LRN (Rec: 04/30/19 15:18 LRN [id number]) OP-PT Subjective Patient Comments Patient Comments Feeling a little better. Thinks she feels a little better after using the traction. Symptoms are: a little sore in the low back, rated 5/10. Use of foam roller at home helped because she felt pretty tight. Patient Reported Progress Improving PT-OP-G Mobility & Gait Start: 03/05/19 07:29 Freq: Status: Active Protocol: Document 03/05/19 08:15 AMB (Rec: 03/07/19 15:59 AMB [email or web address]) OP Gait Assessment Comments Gait Comments decreased trunk rotation, stairs: ok with 4 steps with railings- did ascend/descend stairs with alternating gait. PT-OP-J Posture/Palpation/Skin Start: 03/05/19 07:29 Freq: Status: Active Protocol: Document 03/05/19 08:15 AMB (Rec: 03/07/19 12:51 AMB [email or web address]) Posture Evaluation Comments Posture Comments Increased lumbar lordosis Palpation Assessment Location One Palpation Location lumbar spine Palpation Details Tenderness over spinous processes throughout lumbar spine, not into sacrum or thoracic spine. No tenderness over QL, but tenderness and tightness over paraspinals. PT-OP-K Range of Motion Start: 03/05/19 07:29 Freq: Status: Active Protocol: Document 03/05/19 08:15 AMB (Rec: 03/07/19 12:51 AMB [email or web address]) Lumbar Spine Range of Motion Lumbar Spine Active Degrees Testing Position Standing Flexion 20 Extension 5 Lateral Flexion Left 5 Lateral Flexion Right 10 ROM Limitations Soft Tissue Tightness,Pain PT-OP-M Strength Start: 03/05/19 07:29 Freq: Status: Active Protocol: Document 03/05/19 08:15 AMB (Rec: 03/07/19 15:55 AMB [email or web address]) Hip Strength Hip Manual Muscle Testing Right Flexion (L2) 4 Good Left Flexion (L2) 4 Good Knee Strength Knee Manual Muscle Testing Right Flexion (S2) 5 Normal Extension (L3) 5 Normal Left Flexion (S2) 5 Normal Extension (L3) 5 Normal Ankle/Foot Strength Ankle and Foot Manual Muscle Testing Right Dorsiflexion (L4) 4+ Good+ Left Dorsiflexion (L4) 4+ Good+ Toe Strength Toe Manual Muscle Testing Left Great Toe Extension 5 Normal PT-OP-Q Treatments Start: 03/05/19 07:29 Freq: Status: Active Protocol: Document 04/30/19 14:24 LRN (Rec: 04/30/19 15:18 LRN [id number]) Cardio Equipment Treadmill Duration (Minutes) 6 Speed 1.5 Incline .5 Therapeutic Exercises Supine Exercises Knee rolls LTR Supine Exercise Name Knee rolls LTR Side bilateral Reps/Minutes 10 x each bridge Supine Exercise Name Pelvic Tilt > Bridge Reps/Minutes 10 x 1 Supine Exercise Name bilateral and unilateral knee to chest Reps/Minutes 10x each Manual Therapy Treatment Soft Tissue Mobilization Gluteal & Piriformis Body Location Primarily R Piriformis, & Gluteal @ Sacral Border Mobilization Type Myofascial Release,Strumming, Other Intensity/Depth Moderate Body Position Prone Comments Circles & strumming along R Sacral Border, myokinesthetic stretch. Lumbar Erector Spinae - Sacral Traction Body Location Low back Mobilization Type Myofascial Release,Other Intensity/Depth Moderate Body Position Prone Comments myofascial release of bilateral erector spinae; traction unilateral on both sides between lumbar and sacral area Manual Traction Low back Details Low back traction Reps/Duration 10 min Comments mob belt below patient knees; patient in hook lying. Wedge under patient sacrum to start, ended without wedge. Manual Techniques MWM Type MWM training for PA of L side L2, L3, L4 TrProcess during gait Comments I/S pt in MWM technique for self care when having L medial knee pain. PT-OP-R Modalities Start: 03/05/19 07:29 Freq: Status: Active Protocol: Document 03/12/19 08:15 AMB (Rec: 03/13/19 14:32 AMB [email or web address]) Spinal Traction Traction Treatment Lumbar Method Static Patient Position Supine Force Applied (Pounds) 25 PT-OP-T Assessment and Plan Start: 03/05/19 07:29 Freq: Status: Active Protocol: Document 04/30/19 14:24 LRN (Rec: 04/30/19 15:18 LRN [id number]) Physical Therapy Assessment Goals Two Impairment gait Short Term Goal (STG) Edith will ambulate on smooth surfaces for 15 minutes with back pain of 2/10 or less. STG Duration 4 weeks Intermediate Goal (LTG) Edith will ascend and descend a standard height stairs with alternating gait pattern without an increase in back pain. LTG Duration 8 weeks One Impairment ROM Short Term Goal (STG) Edith will increase her lumbar flexion to 45 degrees. STG Duration 4 weeks B[employer] Filler Goal (LTG) Edith will improve her lumbar extension to 15 degrees. LTG Duration 8 weeks Assessment Summary Assessment Pt had pain relief after TM & stretching from 08/04 to 06/04. Pt Sacrum appears to be L rotated today with tightness of R hip muscles. Pt pain today at level of Sacrum. Physical Therapy Plan Frequency and Duration Frequency of Treatment 2x/Week Duration of Treatment 8 weeks Plan of Care Start Date 03/05/19 Plan of Care End Date 04/30/19 Next Visit Focus/Plan Next Note Type Treatment Note Next Visit Plan Assess if MWM of L L/S region was helpful in changing L knee pain. Continue strength training as tolerated. Work on rotational movements with good form.
--- NOTE | 2019-05-07 14:30 | PT.OTN ---
Current Diagnoses Spondylosis without myelopathy or radiculopathy, lumbosacral region (05/07/19) Physical Therapy Treatment Note PT-OP-A Visit Information Start: 03/05/19 07:29 Freq: Status: Active Protocol: Document 05/07/19 14:30 DLM (Rec: 05/07/19 15:55 DLM [id number]) Out-Patient Physical Therapy Visit Information Visit Information Visit Type Treatment Note Visit Note and Progress Note Visit Start Time 14:30 Visit Stop Time 15:30 Total Visit Minutes 60 Visit Number 15 Number of FIRE CONTROL[employer] Visits 0 Evaluation Information Evaluation Date 03/05/19 PT-OP-B Current Condition Start: 03/05/19 07:29 Freq: Status: Active Protocol: Document 03/05/19 08:15 AMB (Rec: 03/05/19 09:09 AMB [id number]) Current Condition History of Current Condition Onset Date 1 year ago Current Complaints back pain that radiates numbness into left great toe. History of Current Condition Edith reports a multi year history of low back pain that worsened about a year ago insidiously. 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 She does not find anything particularly helpful to reduce her pain. She did try PT years ago, and does remember the inversion table that they had was helpful. Future Testing and Treatments Planned MRI- 03/01/19: multilevel degenerative disc disease, foraminal stenosis, and facet arthorpathy, moderate central canal stenosis at L4-L5. Treatment Goals Patient/Caregiver Goals Decreae pain, go up and down stairs and walk over uneven terrain without pain Prior Functional Status Baseline Function- ADL's Independent Baseline Function- Mobility Independent Current Functional Impairments (Reported) Functional Limitations- ADL's Pt pushes through the pain to complete her work tasks and ADLs Personal Factors Other Personal Factors That May Effect type II diabetes, deperession Therapy/Recovery PT-OP-C Subjective Start: 03/05/19 07:29 Freq: Status: Active Protocol: Document 05/07/19 14:30 DLM (Rec: 05/07/19 15:55 DLM [id number]) OP-PT Subjective Patient Comments Patient Comments Her referring physician recommended she continue Physical Therapy. She plans to get an injection in her back but it is not scheduled yet. Her work shifts have been changing so she is trying to get in a new routine to exercise more often. Patient Reported Progress Improving OP-PT Pain Assessment Location Back Intensity 5 Scale Used Numeric (1 - 10) Description Aching Frequency Constant Radiating Location left great toe, intermittent Variations/Patterns gait on level surfaces with 2- 3/10 pain Other Pain Aggravating Factors walking on uneven surfaces, stairs Pain Alleviating Factors Cold,Rest Other Pain Alleviating Factors home traction PT-OP-G Mobility & Gait Start: 03/05/19 07:29 Freq: Status: Active Protocol: Document 03/05/19 08:15 AMB (Rec: 03/07/19 15:59 AMB [email or web address]) OP Gait Assessment Comments Gait Comments decreased trunk rotation, stairs: ok with 4 steps with railings- did ascend/descend stairs with alternating gait. PT-OP-J Posture/Palpation/Skin Start: 03/05/19 07:29 Freq: Status: Active Protocol: Document 05/07/19 14:30 DLM (Rec: 05/07/19 16:02 DLM [id number]) Posture Evaluation Comments Posture Comments Flexed trunk in standing Palpation Assessment Location One Palpation Location Lumbar area Palpation Findings Soft Tissue Tightness,Spasm, Trigger Point Palpation Details Tightness bilateral paraspinals with left greater than right, tightness left gluteal area, left lumbo- pelvic rotation PT-OP-K Range of Motion Start: 03/05/19 07:29 Freq: Status: Active Protocol: Document 05/07/19 14:30 DLM (Rec: 05/07/19 15:55 DLM [id number]) Lumbar Spine Range of Motion Lumbar Spine Active Degrees Testing Position Standing Flexion 40 Extension 7 PT-OP-M Strength Start: 03/05/19 07:29 Freq: Status: Active Protocol: Document 03/05/19 08:15 AMB (Rec: 03/07/19 15:55 AMB [email or web address]) Hip Strength Hip Manual Muscle Testing Right Flexion (L2) 4 Good Left Flexion (L2) 4 Good Knee Strength Knee Manual Muscle Testing Right Flexion (S2) 5 Normal Extension (L3) 5 Normal Left Flexion (S2) 5 Normal Extension (L3) 5 Normal Ankle/Foot Strength Ankle and Foot Manual Muscle Testing Right Dorsiflexion (L4) 4+ Good+ Left Dorsiflexion (L4) 4+ Good+ Toe Strength Toe Manual Muscle Testing Left Great Toe Extension 5 Normal PT-OP-Q Treatments Start: 03/05/19 07:29 Freq: Status: Active Protocol: Document 05/07/19 14:30 DLM (Rec: 05/07/19 15:55 DLM [id number]) Cardio Equipment Treadmill Duration (Minutes) 6 Speed 1.5 Incline .5 Therapeutic Exercises Supine Exercises Knee rolls LTR Supine Exercise Name Knee rolls LTR Side bilateral Reps/Minutes 10 x each side foam roller TS ext and roll Supine Exercise Name roll perpendicular Reps/Minutes 5 min foam roller pec stretch Supine Exercise Name roll horizontal to spine Reps/Minutes 3 min bridge Supine Exercise Name Bridges Reps/Minutes 10 reps 2 Supine Exercise Name Posterior Pelvic Tilts Reps/Minutes 10 reps Comments v.c to breath 1 Supine Exercise Name Knee to chest stretch Side bilateral Reps/Minutes 5 reps each Comments single and double Standing Exercises 1 Standing Exercise Name Standing hip ext and Abduction Side bilateral Resistance L2 exercise band Reps/Minutes 2 x 10 reps each Comments v.c. for core stabalization Other Exercises 1 Other Exercise Name child's pose with side bend Side bilateral Reps/Minutes 20 sec hold x 3 reps Manual Therapy Treatment Soft Tissue Mobilization Gluteal & Piriformis Body Location Left gluteal area Mobilization Type Rolling,Strumming,Sustained Pressure Intensity/Depth Moderate Body Position Prone Lumbar Erector Spinae - Sacral Traction Body Location Low back Mobilization Type Rolling,Strumming,Sustained Pressure Intensity/Depth Moderate Body Position Prone Comments no traction this visit Left tighter than right Self-Care/Home Management Treatment Education Patient Education Home Exercise Program,Pain Management Other Education plan of care Activities Self-Care/Home Management Activities pt to continue home traction PT-OP-R Modalities Start: 03/05/19 07:29 Freq: Status: Active Protocol: Document 05/07/19 14:30 DLM (Rec: 05/07/19 15:55 DLM [id number]) Hot Pack/Cold Pack Treatment Ice Location Lumbosacral area Patient Position Prone Treatment Duration (minutes) 10 Patient Tolerance Good Comments she reports less pain after ice, Ice performed at end of visit PT-OP-T Assessment and Plan Start: 03/05/19 07:29 Freq: Status: Active Protocol: Document 05/07/19 14:30 DLM (Rec: 05/07/19 15:55 DLM [id number]) Physical Therapy Assessment Impairments Impairments Activity Tolerance,Functional Activities,Gait,Pain,Posture, ROM,Soft Tissue Mobility, Strength Goals Two Impairment gait Short Term Goal (STG) 05/07/19 Goal Met- Edith will ambulate on smooth surfaces for 15 minutes with back pain of 2/10 or less. STG Duration 4 weeks Pushcart Peddler Goal (LTG) Edith will ascend and descend a standard height stairs with alternating gait pattern without an increase in back pain. 2/10- Not met yet LTG Duration 12 weeks One Impairment ROM Short Term Goal (STG) Edith will increase her lumbar flexion to 45 degrees. 2/10- Improved ROM but only to 40 degrees STG Duration 10 weeks Pushcart Peddler Goal (LTG) Eidth will improve her lumbar extension to 15 degrees. 2/10- Small improvement, goal not met yet LTG Duration 12 weeks Progress Towards Goals Progress Towards Goals Progressing Toward Goals Progress Comments progress slower than expected on eval, modified duration of goals Assessment Summary Assessment She tolerated treatment session well. She reports decreased pain at end of visit . Less soft tissue tightness after stretching and manual therapy. Her trunk ROM has improved. Her walking tolerance is improved but uneven surfaces and stairs still increase her pain. Pt wants to continue physical therapy and reports continuing was recommended by her referring physician. Physical Therapy Plan Frequency and Duration Frequency of Treatment 2x/Week Duration of Treatment 4 weeks more Plan of Care Start Date 05/07/19 Plan of Care End Date 07/06/19 Therapeutic Interventions Therapeutic Interventions Home Exercise Program,Joint Mobilizations,Manual Therapy, Patient/Caregiver Education, Self-Care/Home Management,Soft Tissue Mobilization,Taping, Therapeutic Activities Modalities Cold Pack/Ice Massage,Electric Stimulation,Hot Packs, Traction- Mechanical, Ultrasound Other Therapeutic Interventions pt has a home traction unit Other Referrals/Consults Referrals/Consults Recommended pt has back injections planned but not scheduled yet Next Visit Focus/Plan Next Note Type Treatment Note Next Visit Plan continue to advance her exercises
--- NOTE | 2019-05-07 16:02 | PT.OPPN ---
Current Diagnoses Spondylosis without myelopathy or radiculopathy, lumbosacral region (05/07/19) Physical Therapy Progress Note PT-OP-A Visit Information Start: 03/05/19 07:29 Freq: Status: Active Protocol: Document 05/07/19 14:30 DLM (Rec: 05/07/19 15:55 DLM [id number]) Out-Patient Physical Therapy Visit Information Visit Information Visit Type Treatment Note Visit Note and Progress Note Visit Start Time 14:30 Visit Stop Time 15:30 Total Visit Minutes 60 Visit Number 15 Number of LAB[employer]ER [employer] Visits 0 Evaluation Information Evaluation Date 03/05/19 PT-OP-B Current Condition Start: 03/05/19 07:29 Freq: Status: Active Protocol: Document 03/05/19 08:15 AMB (Rec: 03/05/19 09:09 AMB [id number]) Current Condition History of Current Condition Onset Date 1 year ago Current Complaints back pain that radiates numbness into left great toe. History of Current Condition Edith reports a multi year history of low back pain that worsened about a year ago insidiously. 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 She does not find anything particularly helpful to reduce her pain. She did try PT years ago, and does remember the inversion table that they had was helpful. Future Testing and Treatments Planned MRI- 03/01/19: multilevel degenerative disc disease, foraminal stenosis, and facet arthorpathy, moderate central canal stenosis at L4-L5. Treatment Goals Patient/Caregiver Goals Decreae pain, go up and down stairs and walk over uneven terrain without pain Prior Functional Status Baseline Function- ADL's Independent Baseline Function- Mobility Independent Current Functional Impairments (Reported) Functional Limitations- ADL's Pt pushes through the pain to complete her work tasks and ADLs Personal Factors Other Personal Factors That May Effect type II diabetes, deperession Therapy/Recovery PT-OP-C Subjective Start: 03/05/19 07:29 Freq: Status: Active Protocol: Document 05/07/19 14:30 DLM (Rec: 05/07/19 15:55 DLM [id number]) OP-PT Subjective Patient Comments Patient Comments Her referring physician recommended she continue Physical Therapy. She plans to get an injection in her back but it is not scheduled yet. Her work shifts have been changing so she is trying to get in a new routine to exercise more often. Patient Reported Progress Improving OP-PT Pain Assessment Location Back Intensity 5 Scale Used Numeric (1 - 10) Description Aching Frequency Constant Radiating Location left great toe, intermittent Variations/Patterns gait on level surfaces with 2- 3/10 pain Other Pain Aggravating Factors walking on uneven surfaces, stairs Pain Alleviating Factors Cold,Rest Other Pain Alleviating Factors home traction PT-OP-G Mobility & Gait Start: 03/05/19 07:29 Freq: Status: Active Protocol: Document 03/05/19 08:15 AMB (Rec: 03/07/19 15:59 AMB [email or web address]) OP Gait Assessment Comments Gait Comments decreased trunk rotation, stairs: ok with 4 steps with railings- did ascend/descend stairs with alternating gait. PT-OP-J Posture/Palpation/Skin Start: 03/05/19 07:29 Freq: Status: Active Protocol: Document 05/07/19 14:30 DLM (Rec: 05/07/19 16:02 DLM [id number]) Posture Evaluation Comments Posture Comments Flexed trunk in standing Palpation Assessment Location One Palpation Location Lumbar area Palpation Findings Soft Tissue Tightness,Spasm, Trigger Point Palpation Details Tightness bilateral paraspinals with left greater than right, tightness left gluteal area, left lumbo- pelvic rotation PT-OP-K Range of Motion Start: 03/05/19 07:29 Freq: Status: Active Protocol: Document 05/07/19 14:30 DLM (Rec: 05/07/19 15:55 DLM [id number]) Lumbar Spine Range of Motion Lumbar Spine Active Degrees Testing Position Standing Flexion 40 Extension 7 PT-OP-M Strength Start: 03/05/19 07:29 Freq: Status: Active Protocol: Document 03/05/19 08:15 AMB (Rec: 03/07/19 15:55 AMB [email or web address]) Hip Strength Hip Manual Muscle Testing Right Flexion (L2) 4 Good Left Flexion (L2) 4 Good Knee Strength Knee Manual Muscle Testing Right Flexion (S2) 5 Normal Extension (L3) 5 Normal Left Flexion (S2) 5 Normal Extension (L3) 5 Normal Ankle/Foot Strength Ankle and Foot Manual Muscle Testing Right Dorsiflexion (L4) 4+ Good+ Left Dorsiflexion (L4) 4+ Good+ Toe Strength Toe Manual Muscle Testing Left Great Toe Extension 5 Normal PT-OP-T Assessment and Plan Start: 03/05/19 07:29 Freq: Status: Active Protocol: Document 05/07/19 14:30 DLM (Rec: 05/07/19 15:55 DLM [id number]) Physical Therapy Assessment Impairments Impairments Activity Tolerance,Functional Activities,Gait,Pain,Posture, ROM,Soft Tissue Mobility, Strength Goals Two Impairment gait Short Term Goal (STG) 05/07/19 Goal Met- Deith will ambulate on smooth surfaces for 15 minutes with back pain of 2/10 or less. STG Duration 4 weeks [facility] Goal (LTG) Edith will ascend and descend a standard height stairs with alternating gait pattern without an increase in back pain. 2/10- Not met yet LTG Duration 12 weeks One Impairment ROM Short Term Goal (STG) Edith will increase her lumbar flexion to 45 degrees. 210- Improved ROM but only to 40 degrees STG Duration 10 weeks [facility] Goal (LTG) Edith will improve her lumbar extension to 15 degrees. 2/10- Small improvement, goal not met yet LTG Duration 12 weeks Progress Towards Goals Progress Towards Goals Progressing Toward Goals Progress Comments progress slower than expected on eval, modified duration of goals Assessment Summary Assessment She tolerated treatment session well. She reports decreased pain at end of visit . Less soft tissue tightness after stretching and manual therapy. Her trunk ROM has improved. Her walking tolerance is improved but uneven surfaces and stairs still increase her pain. Pt wants to continue physical therapy and reports continuing was recommended by her referring physician. Physical Therapy Plan Frequency and Duration Frequency of Treatment 2x/Week Duration of Treatment 4 weeks more Plan of Care Start Date 05/07/19 Plan of Care End Date 07/06/19 Therapeutic Interventions Therapeutic Interventions Home Exercise Program,Joint Mobilizations,Manual Therapy, Patient/Caregiver Education, Self-Care/Home Management,Soft Tissue Mobilization,Taping, Therapeutic Activities Modalities Cold Pack/Ice Massage,Electric Stimulation,Hot Packs, Traction- Mechanical, Ultrasound Other Therapeutic Interventions pt has a home traction unit Other Referrals/Consults Referrals/Consults Recommended pt has back injections planned but not scheduled yet Next Visit Focus/Plan Next Note Type Treatment Note Next Visit Plan continue to advance her exercises
--- NOTE | 2019-05-07 16:02 | PT.OPPOC ---
Physical, Occupational & Speech Therapy At [facility] Current Diagnoses Spondylosis without myelopathy or radiculopathy, lumbosacral region (05/07/19) Visit Care Team Role Provider Type Mando Garcia DO Primary Care Provider Non-Staff Specialty: Family Practice Address: [address] [place] [address], [phone] Fax: Email: BIRDIE Ledesma Attending Provider [employer] Specialist Specialty: Pain Management Address: [address] [place] [address], [id number] Email: [email or web address] Plan Of Care PT-OP-T Assessment and Plan Start: 03/05/19 07:29 Freq: Status: Active Protocol: Document 05/07/19 14:30 DLM (Rec: 05/07/19 15:55 DLM [id number]) Physical Therapy Assessment Impairments Impairments Activity Tolerance,Functional Activities,Gait,Pain,Posture, ROM,Soft Tissue Mobility, Strength Goals Two Impairment gait Short Term Goal (STG) 05/07/19 Goal Met- Edith will ambulate on smooth surfaces for 15 minutes with back pain of 2/10 or less. STG Duration 4 weeks Half-Way Goal (LTG) Edith will ascend and descend a standard height stairs with alternating gait pattern without an increase in back pain. /10- Not met yet LTG Duration 12 weeks One Impairment ROM Short Term Goal (STG) Edith will increase her lumbar flexion to 45 degrees. 2/10- Improved ROM but only to 40 degrees STG Duration 10 weeks Budget Consultant Goal (LTG) Edith will improve her lumbar extension to 15 degrees. 2/10- Small improvement, goal not met yet LTG Duration 12 weeks Progress Towards Goals Progress Towards Goals Progressing Toward Goals Progress Comments progress slower than expected on eval, modified duration of goals Assessment Summary Assessment She tolerated treatment session well. She reports decreased pain at end of visit . Less soft tissue tightness after stretching and manual therapy. Her trunk ROM has improved. Her walking tolerance is improved but uneven surfaces and stairs still increase her pain. Pt wants to continue physical therapy and reports continuing was recommended by her referring physician. Physical Therapy Plan Frequency and Duration Frequency of Treatment 2x/Week Duration of Treatment 4 weeks more Plan of Care Start Date 05/07/19 Plan of Care End Date 07/06/19 Therapeutic Interventions Therapeutic Interventions Home Exercise Program,Joint Mobilizations,Manual Therapy, Patient/Caregiver Education, Self-Care/Home Management,Soft Tissue Mobilization,Taping, Therapeutic Activities Modalities Cold Pack/Ice Massage,Electric Stimulation,Hot Packs, Traction- Mechanical, Ultrasound Other Therapeutic Interventions pt has a home traction unit Other Referrals/Consults Referrals/Consults Recommended pt has back injections planned but not scheduled yet Next Visit Focus/Plan Next Note Type Treatment Note Next Visit Plan continue to advance her exercises Plan of Care Dates Plan of Care Start Date 05/07/19 Plan of Care End Date 07/06/19 Electronically Signed by: Zaria Aviles, PT 05/07/19 [id number] Please Sign and Return: I have reviewed this Plan of Care and certify that the skilled therapy services above are required to meet the patient?s needs. Physician Signature Date Printed Name and Credentials
--- NOTE | 2019-05-09 17:35 | PT.OTN ---
Current Diagnoses Spondylosis without myelopathy or radiculopathy, lumbosacral region (05/09/19) Physical Therapy Treatment Note PT-OP-A Visit Information Start: 03/05/19 07:29 Freq: Status: Active Protocol: Document 05/09/19 16:48 HH (Rec: 05/09/19 17:35 HH [id number]) Out-Patient Physical Therapy Visit Information Visit Information Visit Type Treatment Note Visit Start Time 16:48 Visit Stop Time 15:30 Total Visit Minutes 42 Visit Number 16 Number of UROLOGIC SURGEON Visits 0 PT-OP-B Current Condition Start: 03/05/19 07:29 Freq: Status: Active Protocol: Document 03/05/19 08:15 AMB (Rec: 03/05/19 09:09 AMB [id number]) Current Condition History of Current Condition Onset Date 1 year ago Current Complaints back pain that radiates numbness into left great toe. History of Current Condition Edith reports a multi year history of low back pain that worsened about a year ago insidiously. 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 She does not find anything particularly helpful to reduce her pain. She did try PT years ago, and does remember the inversion table that they had was helpful. Future Testing and Treatments Planned MRI- 03/01/19: multilevel degenerative disc disease, foraminal stenosis, and facet arthorpathy, moderate central canal stenosis at L4-L5. Treatment Goals Patient/Caregiver Goals Decreae pain, go up and down stairs and walk over uneven terrain without pain Prior Functional Status Baseline Function- ADL's Independent Baseline Function- Mobility Independent Current Functional Impairments (Reported) Functional Limitations- ADL's Pt pushes through the pain to complete her work tasks and ADLs Personal Factors Other Personal Factors That May Effect type II diabetes, deperession Therapy/Recovery PT-OP-C Subjective Start: 03/05/19 07:29 Freq: Status: Active Protocol: Document 05/09/19 16:48 HH (Rec: 05/09/19 17:35 HH [id number]) OP-PT Subjective Patient Comments Patient Comments It's better today than it has been. I still havent schedule my appoint for my injection. Patient Reported Progress Improving PT-OP-G Mobility & Gait Start: 03/05/19 07:29 Freq: Status: Active Protocol: Document 03/05/19 08:15 AMB (Rec: 03/07/19 15:59 AMB [id number]) OP Gait Assessment Comments Gait Comments decreased trunk rotation, stairs: ok with 4 steps with railings- did ascend/descend stairs with alternating gait. PT-OP-J Posture/Palpation/Skin Start: 03/05/19 07:29 Freq: Status: Active Protocol: Document 05/07/19 14:30 DLM (Rec: 05/07/19 16:02 DLM [id number]) Posture Evaluation Comments Posture Comments Flexed trunk in standing Palpation Assessment Location One Palpation Location Lumbar area Palpation Findings Soft Tissue Tightness,Spasm, Trigger Point Palpation Details Tightness bilateral paraspinals with left greater than right, tightness left gluteal area, left lumbo- pelvic rotation PT-OP-K Range of Motion Start: 03/05/19 07:29 Freq: Status: Active Protocol: Document 05/07/19 14:30 DLM (Rec: 05/07/19 15:55 DLM [id number]) Lumbar Spine Range of Motion Lumbar Spine Active Degrees Testing Position Standing Flexion 40 Extension 7 PT-OP-M Strength Start: 03/05/19 07:29 Freq: Status: Active Protocol: Document 03/05/19 08:15 AMB (Rec: 03/07/19 15:55 AMB [email or web address]) Hip Strength Hip Manual Muscle Testing Right Flexion (L2) 4 Good Left Flexion (L2) 4 Good Knee Strength Knee Manual Muscle Testing Right Flexion (S2) 5 Normal Extension (L3) 5 Normal Left Flexion (S2) 5 Normal Extension (L3) 5 Normal Ankle/Foot Strength Ankle and Foot Manual Muscle Testing Right Dorsiflexion (L4) 4+ Good+ Left Dorsiflexion (L4) 4+ Good+ Toe Strength Toe Manual Muscle Testing Left Great Toe Extension 5 Normal PT-OP-Q Treatments Start: 03/05/19 07:29 Freq: Status: Active Protocol: Document 05/09/19 16:48 HH (Rec: 05/09/19 17:35 HH [id number]) Cardio Equipment Treadmill Duration (Minutes) 6 Speed 1.5 Incline .5 Therapeutic Exercises Supine Exercises sciatic nerve glide Supine Exercise Name knee ext and DF Side bilateral Comments reports more tension on L lumbar stretch Supine Exercise Name knee to chest Side bilateral Comments reports of reduce in big toe numbness/ tingling Manual Therapy Treatment Soft Tissue Mobilization Lateral quad/ IT band Mobilization Type Sustained Pressure,Trigger Point Release Intensity/Depth Moderate Body Position Supine Gluteal & Piriformis Body Location Left gluteal area Mobilization Type Rolling,Strumming,Sustained Pressure Intensity/Depth Moderate Body Position Prone Joint Mobilizations L hip mob Joint distraction and inferior glide Grade III Body Position Supine PT-OP-R Modalities Start: 03/05/19 07:29 Freq: Status: Active Protocol: Document 05/07/19 14:30 DLM (Rec: 05/07/19 15:55 DLM [id number]) Hot Pack/Cold Pack Treatment Ice Location Lumbosacral area Patient Position Prone Treatment Duration (minutes) 10 Patient Tolerance Good Comments she reports less pain after ice, Ice performed at end of visit PT-OP-T Assessment and Plan Start: 03/05/19 07:29 Freq: Status: Active Protocol: Document 05/09/19 16:48 HH (Rec: 05/09/19 17:35 HH [id number]) Physical Therapy Assessment Goals Two Impairment gait Short Term Goal (STG) 05/07/19 Goal Met- Edith will ambulate on smooth surfaces for 15 minutes with back pain of 2/10 or less. STG Duration 4 weeks [facility]ci Goal (LTG) Edith will ascend and descend a standard height stairs with alternating gait pattern without an increase in back pain. 210- Not met yet LTG Duration 12 weeks One Impairment ROM Short Term Goal (STG) Edith will increase her lumbar flexion to 45 degrees. 2/10- Improved ROM but only to 40 degrees STG Duration 10 weeks Fci Goal (LTG) Edith will improve her lumbar extension to 15 degrees. 210- Small improvement, goal not met yet LTG Duration 12 weeks Assessment Summary Assessment Pt cont report lumbar flexion based movements tend to relieve her back pain and improved numbness of L big toe . Educated pt to do supine sciatic nerve glide. Pt reports L big toe sensation and back pain improved at the end of the sesssion. Physical Therapy Plan Next Visit Focus/Plan Next Note Type Treatment Note Next Visit Plan assess post session tolerance cont flexion based ex depends on her result continue to advance her exercises
--- NOTE | 2019-05-16 17:19 | PT.OTN ---
Current Diagnoses Spondylosis without myelopathy or radiculopathy, lumbosacral region (05/16/19) Physical Therapy Treatment Note PT-OP-A Visit Information Start: 03/05/19 07:29 Freq: Status: Active Protocol: Document 05/16/19 14:36 AW (Rec: 05/16/19 17:19 AW [id number]) Out-Patient Physical Therapy Visit Information Visit Information Visit Type Treatment Note Visit Start Time 14:30 Visit Stop Time 15:15 Total Visit Minutes 45 Visit Number 17 Number of HEADER UP Visits 0 Evaluation Information Evaluation Date 03/05/19 PT-OP-B Current Condition Start: 03/05/19 07:29 Freq: Status: Active Protocol: Document 03/05/19 08:15 AMB (Rec: 03/05/19 09:09 AMB [id number]) Current Condition History of Current Condition Onset Date 1 year ago Current Complaints back pain that radiates numbness into left great toe. History of Current Condition Edith reports a multi year history of low back pain that worsened about a year ago insidiously. 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 She does not find anything particularly helpful to reduce her pain. She did try PT years ago, and does remember the inversion table that they had was helpful. Future Testing and Treatments Planned MRI- 03/01/19: multilevel degenerative disc disease, foraminal stenosis, and facet arthorpathy, moderate central canal stenosis at L4-L5. Treatment Goals Patient/Caregiver Goals Decreae pain, go up and down stairs and walk over uneven terrain without pain Prior Functional Status Baseline Function- ADL's Independent Baseline Function- Mobility Independent Current Functional Impairments (Reported) Functional Limitations- ADL's Pt pushes through the pain to complete her work tasks and ADLs Personal Factors Other Personal Factors That May Effect type II diabetes, deperession Therapy/Recovery PT-OP-C Subjective Start: 03/05/19 07:29 Freq: Status: Active Protocol: Document 05/16/19 14:36 AW (Rec: 05/16/19 17:19 AW [id number]) OP-PT Subjective Patient Comments Patient Comments Rolling seems to have improved the symptoms down my left leg. Relief lasted for a few days and when I get the shooting pain it is less intense now than it was before . Patient Reported Progress Improving PT-OP-G Mobility & Gait Start: 03/05/19 07:29 Freq: Status: Active Protocol: Document 03/05/19 08:15 AMB (Rec: 03/07/19 15:59 AMB [id number]) OP Gait Assessment Comments Gait Comments decreased trunk rotation, stairs: ok with 4 steps with railings- did ascend/descend stairs with alternating gait. PT-OP-J Posture/Palpation/Skin Start: 03/05/19 07:29 Freq: Status: Active Protocol: Document 05/07/19 14:30 DLM (Rec: 05/07/19 16:02 DLM [id number]) Posture Evaluation Comments Posture Comments Flexed trunk in standing Palpation Assessment Location One Palpation Location Lumbar area Palpation Findings Soft Tissue Tightness,Spasm, Trigger Point Palpation Details Tightness bilateral paraspinals with left greater than right, tightness left gluteal area, left lumbo- pelvic rotation PT-OP-K Range of Motion Start: 03/05/19 07:29 Freq: Status: Active Protocol: Document 05/07/19 14:30 DLM (Rec: 05/07/19 15:55 DLM [id number]) Lumbar Spine Range of Motion Lumbar Spine Active Degrees Testing Position Standing Flexion 40 Extension 7 PT-OP-M Strength Start: 03/05/19 07:29 Freq: Status: Active Protocol: Document 03/05/19 08:15 AMB (Rec: 03/07/19 15:55 AMB [email or web address]) Hip Strength Hip Manual Muscle Testing Right Flexion (L2) 4 Good Left Flexion (L2) 4 Good Knee Strength Knee Manual Muscle Testing Right Flexion (S2) 5 Normal Extension (L3) 5 Normal Left Flexion (S2) 5 Normal Extension (L3) 5 Normal Ankle/Foot Strength Ankle and Foot Manual Muscle Testing Right Dorsiflexion (L4) 4+ Good+ Left Dorsiflexion (L4) 4+ Good+ Toe Strength Toe Manual Muscle Testing Left Great Toe Extension 5 Normal PT-OP-Q Treatments Start: 03/05/19 07:29 Freq: Status: Active Protocol: Document 05/16/19 14:36 AW (Rec: 05/16/19 17:19 AW [id number]) Cardio Equipment Treadmill Duration (Minutes) 6 Speed 1.5 Incline .5 Therapeutic Exercises Supine Exercises sciatic nerve glide Supine Exercise Name knee ext and DF Side bilateral Comments reports more tension on L Knee rolls LTR Supine Exercise Name Knee rolls LTR Side bilateral Reps/Minutes 10 x each side bridge Supine Exercise Name Bridges with adduction Equipment Used purple ball between knees Reps/Minutes 10 reps x 2 Comments 5 second hold lumbar stretch Supine Exercise Name single knee to chest Side bilateral Reps/Minutes 20 sec hold x 2 each leg Sidelying Exercises open book Sidelying Exercise Name open book Side bilateral Reps/Minutes 10 each side Other Exercises cat camel Other Exercise Name cat camel Reps/Minutes 3 minutes alternating Comments improved tolerance to extension Manual Therapy Treatment Soft Tissue Mobilization Gluteal & Piriformis Body Location Left gluteal area Mobilization Type Rolling,Strumming,Sustained Pressure Intensity/Depth Moderate Body Position Prone PT-OP-R Modalities Start: 03/05/19 07:29 Freq: Status: Active Protocol: Document 05/07/19 14:30 DLM (Rec: 05/07/19 15:55 DLM [id number]) Hot Pack/Cold Pack Treatment Ice Location Lumbosacral area Patient Position Prone Treatment Duration (minutes) 10 Patient Tolerance Good Comments she reports less pain after ice, Ice performed at end of visit PT-OP-T Assessment and Plan Start: 03/05/19 07:29 Freq: Status: Active Protocol: Document 05/16/19 14:36 AW (Rec: 05/16/19 17:19 AW [id number]) Physical Therapy Assessment Impairments Impairments Activity Tolerance,Functional Activities,Gait,Pain,Posture, ROM,Soft Tissue Mobility, Strength Goals Two Impairment gait Short Term Goal (STG) 05/07/19 Goal Met- Edith will ambulate on smooth surfaces for 15 minutes with back pain of 2/10 or less. STG Duration 4 weeks Leadership Program Associate Goal (LTG) Edith will ascend and descend a standard height stairs with alternating gait pattern without an increase in back pain. 05/07- Not met yet LTG Duration 12 weeks One Impairment ROM Short Term Goal (STG) Edith will increase her lumbar flexion to 45 degrees. 10- Improved ROM but only to 40 degrees STG Duration 10 weeks Leadership Program Associate Goal (LTG) Edith will improve her lumbar extension to 15 degrees. 10- Small improvement, goal not met yet LTG Duration 12 weeks Progress Towards Goals Progress Towards Goals Progressing Toward Goals Assessment Summary Assessment Pt has been performing sciatic nerve glide at home with good effect and pt reporting decreased L great toe numbness /tingling. Pt states she likes seeing a variety of therapists because she learns something new from each of them. Physical Therapy Plan Frequency and Duration Frequency of Treatment 2x/Week Duration of Treatment 4 weeks more Plan of Care Start Date 05/07/19 Plan of Care End Date 07/06/19 Therapeutic Interventions Therapeutic Interventions Home Exercise Program,Joint Mobilizations,Manual Therapy, Patient/Caregiver Education, Self-Care/Home Management,Soft Tissue Mobilization,Taping, Therapeutic Activities Modalities Cold Pack/Ice Massage,Electric Stimulation,Hot Packs, Traction- Mechanical, Ultrasound Other Therapeutic Interventions pt has a home traction unit Other Referrals/Consults Referrals/Consults Recommended pt has back injections planned but not scheduled yet Next Visit Focus/Plan Next Note Type Treatment Note Next Visit Plan Continue to advance her exercises. Review HEP
--- NOTE | 2019-05-18 15:14 | PT.OTN ---
Current Diagnoses Spondylosis without myelopathy or radiculopathy, lumbosacral region (05/18/19) Physical Therapy Treatment Note PT-OP-A Visit Information Start: 03/05/19 07:29 Freq: Status: Active Protocol: Document 05/18/19 15:14 DLM (Rec: 05/18/19 15:30 DLM [email or web address]) Out-Patient Physical Therapy Visit Information Visit Information Visit Type Treatment Note Visit Start Time 14:32 Visit Stop Time 15:20 Total Visit Minutes 48 Number of HAZARDOUS MATERIAL TECHNICIAN Visits 0 Evaluation Information Evaluation Date 03/05/19 PT-OP-B Current Condition Start: 03/05/19 07:29 Freq: Status: Active Protocol: Document 03/05/19 08:15 AMB (Rec: 03/05/19 09:09 AMB [id number]) Current Condition History of Current Condition Onset Date 1 year ago Current Complaints back pain that radiates numbness into left great toe. History of Current Condition Edith reports a multi year history of low back pain that worsened about a year ago insidiously. 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 She does not find anything particularly helpful to reduce her pain. She did try PT years ago, and does remember the inversion table that they had was helpful. Future Testing and Treatments Planned MRI- 03/01/19: multilevel degenerative disc disease, foraminal stenosis, and facet arthorpathy, moderate central canal stenosis at L4-L5. Treatment Goals Patient/Caregiver Goals Decreae pain, go up and down stairs and walk over uneven terrain without pain Prior Functional Status Baseline Function- ADL's Independent Baseline Function- Mobility Independent Current Functional Impairments (Reported) Functional Limitations- ADL's Pt pushes through the pain to complete her work tasks and ADLs Personal Factors Other Personal Factors That May Effect type II diabetes, deperession Therapy/Recovery PT-OP-C Subjective Start: 03/05/19 07:29 Freq: Status: Active Protocol: Document 05/18/19 15:14 DLM (Rec: 05/18/19 15:30 DLM [email or web address]) OP-PT Subjective Patient Comments Patient Comments Her insurance rejected getting the injections. Her back feels tight and sore today after working all day. Patient Reported Progress Same OP-PT Pain Assessment Location Back Pain Location Details 3-4/10 reported Intensity 4 Scale Used Numeric (1 - 10) Description Aching,Tightness Description- Other constant PT-OP-G Mobility & Gait Start: 03/05/19 07:29 Freq: Status: Active Protocol: Document 03/05/19 08:15 AMB (Rec: 03/07/19 15:59 AMB [email or web address]) OP Gait Assessment Comments Gait Comments decreased trunk rotation, stairs: ok with 4 steps with railings- did ascend/descend stairs with alternating gait. PT-OP-J Posture/Palpation/Skin Start: 03/05/19 07:29 Freq: Status: Active Protocol: Document 05/07/19 14:30 DLM (Rec: 05/07/19 16:02 DLM [id number]) Posture Evaluation Comments Posture Comments Flexed trunk in standing Palpation Assessment Location One Palpation Location Lumbar area Palpation Findings Soft Tissue Tightness,Spasm, Trigger Point Palpation Details Tightness bilateral paraspinals with left greater than right, tightness left gluteal area, left lumbo- pelvic rotation PT-OP-K Range of Motion Start: 03/05/19 07:29 Freq: Status: Active Protocol: Document 05/07/19 14:30 DLM (Rec: 05/07/19 15:55 DLM [id number]) Lumbar Spine Range of Motion Lumbar Spine Active Degrees Testing Position Standing Flexion 40 Extension 7 PT-OP-M Strength Start: 03/05/19 07:29 Freq: Status: Active Protocol: Document 03/05/19 08:15 AMB (Rec: 03/07/19 15:55 AMB [email or web address]) Hip Strength Hip Manual Muscle Testing Right Flexion (L2) 4 Good Left Flexion (L2) 4 Good Knee Strength Knee Manual Muscle Testing Right Flexion (S2) 5 Normal Extension (L3) 5 Normal Left Flexion (S2) 5 Normal Extension (L3) 5 Normal Ankle/Foot Strength Ankle and Foot Manual Muscle Testing Right Dorsiflexion (L4) 4+ Good+ Left Dorsiflexion (L4) 4+ Good+ Toe Strength Toe Manual Muscle Testing Left Great Toe Extension 5 Normal PT-OP-Q Treatments Start: 03/05/19 07:29 Freq: Status: Active Protocol: Document 05/18/19 15:14 DLM (Rec: 05/18/19 15:30 DLM [email or web address]) Cardio Equipment Treadmill Duration (Minutes) 6 Speed 1.5 Incline 0.5 Therapeutic Exercises Supine Exercises Knee rolls LTR Supine Exercise Name Knee rolls LTR Side bilateral Reps/Minutes 10 x each side bridge Supine Exercise Name Bridges with adduction Equipment Used purple ball between knees Reps/Minutes 10 reps x 2 Comments 5 second hold lumbar stretch Supine Exercise Name single knee to chest Side bilateral Reps/Minutes 20 sec hold x 3 each leg 2 Supine Exercise Name Posterior Pelvic Tilts Reps/Minutes 10 reps Comments v.c to breath 1 Supine Exercise Name Knee to chest stretch Side bilateral Reps/Minutes 3 reps Comments double Other Exercises cat camel Other Exercise Name cat camel Reps/Minutes 10 reps 1 Other Exercise Name child's pose with side bend Side bilateral Reps/Minutes 20 sec hold x 3 reps Manual Therapy Treatment Soft Tissue Mobilization Gluteal & Piriformis Comments no unilateral tightness noted this visit Lumbar Erector Spinae - Sacral Traction Body Location lumbar paraspinals Mobilization Type Cross-Friction,Rolling, Strumming,Sustained Pressure, Trigger Point Release Intensity/Depth Moderate Comments no traction this visit Self-Care/Home Management Treatment Education Patient Education Home Exercise Program,Pain Management PT-OP-R Modalities Start: 03/05/19 07:29 Freq: Status: Active Protocol: Document 05/18/19 15:14 DLM (Rec: 05/18/19 15:30 DLM [email or web address]) Hot Pack/Cold Pack Treatment Ice Location lumbosacral area Patient Position Prone Treatment Duration (minutes) 10 PT-OP-T Assessment and Plan Start: 03/05/19 07:29 Freq: Status: Active Protocol: Document 05/18/19 15:14 DLM (Rec: 05/18/19 15:30 DLM [email or web address]) Physical Therapy Assessment Goals Two Impairment gait Short Term Goal (STG) 05/07/19 Goal Met- Edith will ambulate on smooth surfaces for 15 minutes with back pain of 2/10 or less. STG Duration 4 weeks Senior Living Goal (LTG) Edith will ascend and descend a standard height stairs with alternating gait pattern without an increase in back pain. 10- Not met yet LTG Duration 12 weeks One Impairment ROM Short Term Goal (STG) Edith will increase her lumbar flexion to 45 degrees. 2/10- Improved ROM but only to 40 degrees STG Duration 10 weeks Cruise Director Goal (LTG) Edith will improve her lumbar extension to 15 degrees. 2/10- Small improvement, goal not met yet LTG Duration 12 weeks Progress Towards Goals Progress Towards Goals Progressing Toward Goals Progress Comments she reports having a little less difficulty on stairs but still takes her time Assessment Summary Assessment She tolerated treatment session well. She reports good compliance with HEP. Noted increased low back tone when pt discussing stressors in her life. No LE radicular symptoms this visit. Her back was greatest at L4-5 level and tightness throughout lumbar paraspinals. Physical Therapy Plan Frequency and Duration Frequency of Treatment 2x/Week Duration of Treatment 4 weeks more Plan of Care Start Date 05/07/19 Plan of Care End Date 07/06/19 Therapeutic Interventions Therapeutic Interventions Home Exercise Program,Joint Mobilizations,Manual Therapy, Patient/Caregiver Education, Self-Care/Home Management,Soft Tissue Mobilization,Taping, Therapeutic Activities Modalities Cold Pack/Ice Massage,Electric Stimulation,Hot Packs, Traction- Mechanical, Ultrasound Other Therapeutic Interventions pt has a home traction unit Other Referrals/Consults Referrals/Consults Recommended pt reports she will not be getting injections because her insurance denied them Next Visit Focus/Plan Next Note Type Treatment Note Next Visit Plan trial leg extension ex or step -ups to improve stair tolerance
--- NOTE | 2019-05-22 14:35 | PT.OTN ---
Current Diagnoses Spondylosis without myelopathy or radiculopathy, lumbosacral region (05/22/19) Physical Therapy Treatment Note PT-OP-A Visit Information Start: 03/05/19 07:29 Freq: Status: Active Protocol: Document 05/22/19 13:49 SP (Rec: 05/22/19 14:57 SP [id number]) Out-Patient Physical Therapy Visit Information Visit Information Visit Type Treatment Note Visit Start Time 13:49 Visit Stop Time 14:35 Total Visit Minutes 46 Visit Number 19 Number of FORESTRY FOREMAN Visits 1 PT-OP-B Current Condition Start: 03/05/19 07:29 Freq: Status: Active Protocol: Document 03/05/19 08:15 AMB (Rec: 03/05/19 09:09 AMB [id number]) Current Condition History of Current Condition Onset Date 1 year ago Current Complaints back pain that radiates numbness into left great toe. History of Current Condition Edith reports a multi year history of low back pain that worsened about a year ago insidiously. 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 She does not find anything particularly helpful to reduce her pain. She did try PT years ago, and does remember the inversion table that they had was helpful. Future Testing and Treatments Planned MRI- 03/01/19: multilevel degenerative disc disease, foraminal stenosis, and facet arthorpathy, moderate central canal stenosis at L4-L5. Treatment Goals Patient/Caregiver Goals Decreae pain, go up and down stairs and walk over uneven terrain without pain Prior Functional Status Baseline Function- ADL's Independent Baseline Function- Mobility Independent Current Functional Impairments (Reported) Functional Limitations- ADL's Pt pushes through the pain to complete her work tasks and ADLs Personal Factors Other Personal Factors That May Effect type II diabetes, deperession Therapy/Recovery PT-OP-C Subjective Start: 03/05/19 07:29 Freq: Status: Active Protocol: Document 05/22/19 13:49 SP (Rec: 05/22/19 14:57 SP [id number]) OP-PT Subjective Patient Comments Patient Comments Pt reported felt alot better after last tx when she massaged my L LB and lasted about a day and the next day was moving around alot better. Pt reported felt like R leg wasnt' going to hold her when descending LLE down so proceeded to step to gait for safety and use BHR. PT-OP-G Mobility & Gait Start: 03/05/19 07:29 Freq: Status: Active Protocol: Document 03/05/19 08:15 AMB (Rec: 03/07/19 15:59 AMB [email or web address]) OP Gait Assessment Comments Gait Comments decreased trunk rotation, stairs: ok with 4 steps with railings- did ascend/descend stairs with alternating gait. PT-OP-J Posture/Palpation/Skin Start: 03/05/19 07:29 Freq: Status: Active Protocol: Document 05/07/19 14:30 DLM (Rec: 05/07/19 16:02 DLM [id number]) Posture Evaluation Comments Posture Comments Flexed trunk in standing Palpation Assessment Location One Palpation Location Lumbar area Palpation Findings Soft Tissue Tightness,Spasm, Trigger Point Palpation Details Tightness bilateral paraspinals with left greater than right, tightness left gluteal area, left lumbo- pelvic rotation PT-OP-K Range of Motion Start: 03/05/19 07:29 Freq: Status: Active Protocol: Document 05/07/19 14:30 DLM (Rec: 05/07/19 15:55 DLM [id number]) Lumbar Spine Range of Motion Lumbar Spine Active Degrees Testing Position Standing Flexion 40 Extension 7 PT-OP-M Strength Start: 03/05/19 07:29 Freq: Status: Active Protocol: Document 03/05/19 08:15 AMB (Rec: 03/07/19 15:55 AMB [email or web address]) Hip Strength Hip Manual Muscle Testing Right Flexion (L2) 4 Good Left Flexion (L2) 4 Good Knee Strength Knee Manual Muscle Testing Right Flexion (S2) 5 Normal Extension (L3) 5 Normal Left Flexion (S2) 5 Normal Extension (L3) 5 Normal Ankle/Foot Strength Ankle and Foot Manual Muscle Testing Right Dorsiflexion (L4) 4+ Good+ Left Dorsiflexion (L4) 4+ Good+ Toe Strength Toe Manual Muscle Testing Left Great Toe Extension 5 Normal PT-OP-Q Treatments Start: 03/05/19 07:29 Freq: Status: Active Protocol: Document 05/22/19 13:49 SP (Rec: 05/22/19 14:57 SP [id number]) Cardio Equipment Recumbent Stepper (Sci-Fit) Duration (Minutes) 6 Resistance 2.6 Seat Position 11 Other good work effort, feels good Therapeutic Exercises Sitting Exercises PF stretch Sitting Exercise Name IR/ER Side bilateral Reps/Minutes 30 x2 Spinal ROM Sitting Exercise Name flexion reaching between BLE Side bilateral Reps/Minutes 20 x3 Comments segmental flexion QL stretch Side bilateral Reps/Minutes 30 x2 Standing Exercises step ups Resistance AROM Equipment Used 1 HR, 6 step Reps/Minutes 4 x5 reps leading R and L alternating Comments cued slow pacing heel press glut/quad facilitation sit to stands Standing Exercise Name arms across chest Reps/Minutes x10 Core side stepping Standing Exercise Name f/b/side stepping Resistance YTB Reps/Minutes 10 ft x2 laps each Comments stopped backward after 3 steps due to increased L sciatic pain, F/S tolerab PT-OP-R Modalities Start: 03/05/19 07:29 Freq: Status: Active Protocol: Document 05/18/19 15:14 DLM (Rec: 05/18/19 15:30 DLM [email or web address]) Hot Pack/Cold Pack Treatment Ice Location lumbosacral area Patient Position Prone Treatment Duration (minutes) 10 PT-OP-T Assessment and Plan Start: 03/05/19 07:29 Freq: Status: Active Protocol: Document 05/22/19 13:49 SP (Rec: 05/22/19 14:57 SP [id number]) Physical Therapy Assessment Goals Two Impairment gait Short Term Goal (STG) 05/07/19 Goal Met- Edith will ambulate on smooth surfaces for 15 minutes with back pain of 2/10 or less. STG Duration 4 weeks Custodial Goal (LTG) Edith will ascend and descend a standard height stairs with alternating gait pattern without an increase in back pain. 2/10- Not met yet LTG Duration 12 weeks One Impairment ROM Short Term Goal (STG) Edith will increase her lumbar flexion to 45 degrees. 2/10- Improved ROM but only to 40 degrees STG Duration 10 weeks Custodial Goal (LTG) Edith will improve her lumbar extension to 15 degrees. 2/10- Small improvement, goal not met yet LTG Duration 12 weeks Assessment Summary Assessment Tx focused on standing strengthening, stair mgt, flexibility to decrease L hip/ LBP manual and self application using requetball and tennis ball on wall with positive results I am going to bring a ball to work and do at work and stretching. Cued proper set up and form with improvement. Pt reported I feel alot looser and not feeling the L hip pain as much end of tx. Physical Therapy Plan Frequency and Duration Frequency of Treatment 2x/Week Duration of Treatment 4 weeks more Plan of Care Start Date 05/07/19 Plan of Care End Date 07/06/19 Therapeutic Interventions Therapeutic Interventions Home Exercise Program,Joint Mobilizations,Manual Therapy, Patient/Caregiver Education, Self-Care/Home Management,Soft Tissue Mobilization,Taping, Therapeutic Activities Modalities Cold Pack/Ice Massage,Electric Stimulation,Hot Packs, Traction- Mechanical, Ultrasound Other Therapeutic Interventions pt has a home traction unit Other Referrals/Consults Referrals/Consults Recommended pt reports she will not be getting injections because her insurance denied them Next Visit Focus/Plan Next Note Type Treatment Note Next Visit Plan Assess response to last tx: band walk, sit to stands, added step ups with 1 HR to work on functional mobility strengthening. Continue per PT POC: trial leg extension ex, responded well to step ups.
--- NOTE | 2019-05-24 14:30 | PT.OTN ---
Current Diagnoses Spondylosis without myelopathy or radiculopathy, lumbosacral region (05/24/19) Physical Therapy Treatment Note PT-OP-A Visit Information Start: 03/05/19 07:29 Freq: Status: Active Protocol: Document 05/24/19 13:46 KS (Rec: 05/24/19 14:56 KS [id number]) Out-Patient Physical Therapy Visit Information Visit Information Visit Type Treatment Note Visit Start Time 13:46 Visit Stop Time 14:30 Total Visit Minutes 44 Visit Number 20 Number of ASSOCIATE PRODUCT INTEGRITY ENGINEER Visits 2 PT-OP-B Current Condition Start: 03/05/19 07:29 Freq: Status: Active Protocol: Document 03/05/19 08:15 AMB (Rec: 03/05/19 09:09 AMB [id number]) Current Condition History of Current Condition Onset Date 1 year ago Current Complaints back pain that radiates numbness into left great toe. History of Current Condition Edith reports a multi year history of low back pain that worsened about a year ago insidiously. 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 She does not find anything particularly helpful to reduce her pain. She did try PT years ago, and does remember the inversion table that they had was helpful. Future Testing and Treatments Planned MRI- 03/01/19: multilevel degenerative disc disease, foraminal stenosis, and facet arthorpathy, moderate central canal stenosis at L4-L5. Treatment Goals Patient/Caregiver Goals Decreae pain, go up and down stairs and walk over uneven terrain without pain Prior Functional Status Baseline Function- ADL's Independent Baseline Function- Mobility Independent Current Functional Impairments (Reported) Functional Limitations- ADL's Pt pushes through the pain to complete her work tasks and ADLs Personal Factors Other Personal Factors That May Effect type II diabetes, deperession Therapy/Recovery PT-OP-C Subjective Start: 03/05/19 07:29 Freq: Status: Active Protocol: Document 05/24/19 13:46 KS (Rec: 05/24/19 14:56 KS [id number]) OP-PT Subjective Patient Comments Patient Comments Pt reports that she feels like she is improving and has less pain overall. Had lasting relief from STM last tx. Notes that she still has occasional radiculopathy to L knee and numbness in L big toe. Patient Reported Progress Improving PT-OP-G Mobility & Gait Start: 03/05/19 07:29 Freq: Status: Active Protocol: Document 03/05/19 08:15 AMB (Rec: 03/07/19 15:59 AMB [email or web address]) OP Gait Assessment Comments Gait Comments decreased trunk rotation, stairs: ok with 4 steps with railings- did ascend/descend stairs with alternating gait. PT-OP-J Posture/Palpation/Skin Start: 03/05/19 07:29 Freq: Status: Active Protocol: Document 05/07/19 14:30 DLM (Rec: 05/07/19 16:02 DLM [id number]) Posture Evaluation Comments Posture Comments Flexed trunk in standing Palpation Assessment Location One Palpation Location Lumbar area Palpation Findings Soft Tissue Tightness,Spasm, Trigger Point Palpation Details Tightness bilateral paraspinals with left greater than right, tightness left gluteal area, left lumbo- pelvic rotation PT-OP-K Range of Motion Start: 03/05/19 07:29 Freq: Status: Active Protocol: Document 05/07/19 14:30 DLM (Rec: 05/07/19 15:55 DLM [id number]) Lumbar Spine Range of Motion Lumbar Spine Active Degrees Testing Position Standing Flexion 40 Extension 7 PT-OP-M Strength Start: 03/05/19 07:29 Freq: Status: Active Protocol: Document 03/05/19 08:15 AMB (Rec: 03/07/19 15:55 AMB [email or web address]) Hip Strength Hip Manual Muscle Testing Right Flexion (L2) 4 Good Left Flexion (L2) 4 Good Knee Strength Knee Manual Muscle Testing Right Flexion (S2) 5 Normal Extension (L3) 5 Normal Left Flexion (S2) 5 Normal Extension (L3) 5 Normal Ankle/Foot Strength Ankle and Foot Manual Muscle Testing Right Dorsiflexion (L4) 4+ Good+ Left Dorsiflexion (L4) 4+ Good+ Toe Strength Toe Manual Muscle Testing Left Great Toe Extension 5 Normal PT-OP-Q Treatments Start: 03/05/19 07:29 Freq: Status: Active Protocol: Document 05/24/19 13:46 KS (Rec: 05/24/19 14:56 KS [id number]) Cardio Equipment Recumbent Stepper (Sci-Fit) Duration (Minutes) 7 Resistance 3.5 Seat Position 11 Therapeutic Exercises Supine Exercises Knee rolls LTR Supine Exercise Name Knee rolls LTR Side bilateral Reps/Minutes 10 x each side bridge Supine Exercise Name Bridges with adduction Equipment Used purple ball between knees Reps/Minutes 10 reps x 2 Comments 5 second hold lumbar stretch Supine Exercise Name single knee to chest Side bilateral Reps/Minutes 20 sec hold x 3 each leg 3 Supine Exercise Name Piriformis stretch Side bilateral Reps/Minutes 2x30 s Sidelying Exercises open book Sidelying Exercise Name open book Reps/Minutes 1x10 Sitting Exercises clam shell Sitting Exercise Name clamshells Reps/Minutes 2x10 Other Exercises cat camel Other Exercise Name cat camel Reps/Minutes 10 reps Manual Therapy Treatment Soft Tissue Mobilization Gluteal & Piriformis Mobilization Type Rolling,Strumming,Sustained Pressure Intensity/Depth Deep Body Position Prone Comments slight tenderness L piriformis Manual Traction Low back Details LLE Body Position Supine Comments Responded well PT-OP-R Modalities Start: 03/05/19 07:29 Freq: Status: Active Protocol: Document 05/18/19 15:14 DLM (Rec: 05/18/19 15:30 DLM [email or web address]) Hot Pack/Cold Pack Treatment Ice Location lumbosacral area Patient Position Prone Treatment Duration (minutes) 10 PT-OP-T Assessment and Plan Start: 03/05/19 07:29 Freq: Status: Active Protocol: Document 05/24/19 13:46 KS (Rec: 05/24/19 14:56 KS [id number]) Physical Therapy Assessment Rehab Potential Rehabilitation Potential Good Evaluation Complexity Number of Personal Factors/Comorbidities 1-2 Number of Body Systems Impaired 4 or More Clinical Presentation at Evaluation Stable Impairments Impairments Activity Tolerance,Functional Activities,Gait,Pain,Posture, ROM,Soft Tissue Mobility, Strength Goals Two Impairment gait Short Term Goal (STG) 05/07/19 Goal Met- Edith will ambulate on smooth surfaces for 15 minutes with back pain of 2/10 or less. STG Duration 4 weeks Slime Plant Operator Goal (LTG) Edith will ascend and descend a standard height stairs with alternating gait pattern without an increase in back pain. 05/07- Not met yet LTG Duration 12 weeks One Impairment ROM Short Term Goal (STG) Edith will increase her lumbar flexion to 45 degrees. 10- Improved ROM but only to 40 degrees STG Duration 10 weeks Slime Plant Operator Goal (LTG) Edith will improve her lumbar extension to 15 degrees. 05/07- Small improvement, goal not met yet LTG Duration 12 weeks Progress Towards Goals Progress Towards Goals Progressing Toward Goals Progress Comments she reports having a little less difficulty on stairs but still takes her time Assessment Summary Assessment Pt was able to tolerate all spinal mobility and strengthening exercises today, but has slight increase in cervical discomfort when performing open book. Responded well to STM on L glutes and piriformis, mild tenderness in piriformis area and LAD of LLE. Cues for core stabilization during exercises . Physical Therapy Plan Frequency and Duration Frequency of Treatment 2x/Week Duration of Treatment 4 weeks more Plan of Care Start Date 05/07/19 Plan of Care End Date 07/06/19 Therapeutic Interventions Therapeutic Interventions Home Exercise Program,Joint Mobilizations,Manual Therapy, Patient/Caregiver Education, Self-Care/Home Management,Soft Tissue Mobilization,Taping, Therapeutic Activities Modalities Cold Pack/Ice Massage,Electric Stimulation,Hot Packs, Traction- Mechanical, Ultrasound Other Therapeutic Interventions pt has a home traction unit Other Referrals/Consults Referrals/Consults Recommended pt reports she will not be getting injections because her insurance denied them Next Visit Focus/Plan Next Note Type Treatment Note Next Visit Plan Assess response to last tx: band walk, sit to stands, added step ups with 1 HR to work on functional mobility strengthening. Continue per PT POC: trial leg extension ex, responded well to step ups.
--- NOTE | 2019-06-01 16:27 | PT.OTN ---
Current Diagnoses Spondylosis without myelopathy or radiculopathy, lumbosacral region (06/01/19) Physical Therapy Treatment Note PT-OP-A Visit Information Start: 03/05/19 07:29 Freq: Status: Active Protocol: Document 06/01/19 14:34 EG (Rec: 06/01/19 15:58 EG [id number]) Out-Patient Physical Therapy Visit Information Visit Information Visit Type Treatment Note Visit Start Time 14:34 Visit Stop Time 15:45 Total Visit Minutes 41 Visit Number 21 Number of MEDICAL UNDERWRITER Visits 0 PT-OP-B Current Condition Start: 03/05/19 07:29 Freq: Status: Active Protocol: Document 03/05/19 08:15 AMB (Rec: 03/05/19 09:09 AMB [id number]) Current Condition History of Current Condition Onset Date 1 year ago Current Complaints back pain that radiates numbness into left great toe. History of Current Condition Edith reports a multi year history of low back pain that worsened about a year ago insidiously. 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 She does not find anything particularly helpful to reduce her pain. She did try PT years ago, and does remember the inversion table that they had was helpful. Future Testing and Treatments Planned MRI- 03/01/19: multilevel degenerative disc disease, foraminal stenosis, and facet arthorpathy, moderate central canal stenosis at L4-L5. Treatment Goals Patient/Caregiver Goals Decreae pain, go up and down stairs and walk over uneven terrain without pain Prior Functional Status Baseline Function- ADL's Independent Baseline Function- Mobility Independent Current Functional Impairments (Reported) Functional Limitations- ADL's Pt pushes through the pain to complete her work tasks and ADLs Personal Factors Other Personal Factors That May Effect type II diabetes, deperession Therapy/Recovery PT-OP-C Subjective Start: 03/05/19 07:29 Freq: Status: Active Protocol: Document 06/01/19 14:34 EG (Rec: 06/01/19 15:58 EG [id number]) OP-PT Subjective Patient Comments Patient Comments Patient reports that her back pain has been doing better. Her new work schedule is busy and tiring. Patient reports that she has not gotten an authorization for her shot. Patient reports that stair and uneven ground is still the main aggravating activity. PT-OP-G Mobility & Gait Start: 03/05/19 07:29 Freq: Status: Active Protocol: Document 03/05/19 08:15 AMB (Rec: 03/07/19 15:59 AMB [email or web address]) OP Gait Assessment Comments Gait Comments decreased trunk rotation, stairs: ok with 4 steps with railings- did ascend/descend stairs with alternating gait. PT-OP-J Posture/Palpation/Skin Start: 03/05/19 07:29 Freq: Status: Active Protocol: Document 05/07/19 14:30 DLM (Rec: 05/07/19 16:02 DLM [id number]) Posture Evaluation Comments Posture Comments Flexed trunk in standing Palpation Assessment Location One Palpation Location Lumbar area Palpation Findings Soft Tissue Tightness,Spasm, Trigger Point Palpation Details Tightness bilateral paraspinals with left greater than right, tightness left gluteal area, left lumbo- pelvic rotation PT-OP-K Range of Motion Start: 03/05/19 07:29 Freq: Status: Active Protocol: Document 05/07/19 14:30 DLM (Rec: 05/07/19 15:55 DLM [id number]) Lumbar Spine Range of Motion Lumbar Spine Active Degrees Testing Position Standing Flexion 40 Extension 7 PT-OP-M Strength Start: 03/05/19 07:29 Freq: Status: Active Protocol: Document 03/05/19 08:15 AMB (Rec: 03/07/19 15:55 AMB [email or web address]) Hip Strength Hip Manual Muscle Testing Right Flexion (L2) 4 Good Left Flexion (L2) 4 Good Knee Strength Knee Manual Muscle Testing Right Flexion (S2) 5 Normal Extension (L3) 5 Normal Left Flexion (S2) 5 Normal Extension (L3) 5 Normal Ankle/Foot Strength Ankle and Foot Manual Muscle Testing Right Dorsiflexion (L4) 4+ Good+ Left Dorsiflexion (L4) 4+ Good+ Toe Strength Toe Manual Muscle Testing Left Great Toe Extension 5 Normal PT-OP-Q Treatments Start: 03/05/19 07:29 Freq: Status: Active Protocol: Document 06/01/19 14:34 EG (Rec: 06/01/19 15:58 EG [id number]) Cardio Equipment Treadmill Duration (Minutes) 6 Speed 1.8 Incline 0 Gym Equipment Therapeutic Ball DKTC, SLR Exercise Details Double Knee to Chest/Supine Lumbar Roll side to side Ball Size/Color 65 inch/red ball Body Position Supine Reps/Duration 15x each way Comments Patient enjoyed this exercise. Given for HEP Therapeutic Exercises Standing Exercises Foam Pad step ups/balance and stabilization Standing Exercise Name Foam Pad step-ups and balance with head turns Side bilateral Equipment Used foam pad, // bars Reps/Minutes 10x each side Comments turn head up/down and side/ side while balancing on foam roll step ups Standing Exercise Name Step-Ups Resistance AROM Equipment Used 1 HR, 6 step Reps/Minutes 2x10 leading with each leg Comments cued glute activation Manual Therapy Treatment Soft Tissue Mobilization Gluteal & Piriformis Body Location Piriformis and Gluteal Mobilization Type Rolling,Strumming,Sustained Pressure Intensity/Depth Deep Body Position Prone Comments tenderness L piriformis Lumbar Erector Spinae - Sacral Traction Body Location Lumbar Erector Spinae, sacral traction Mobilization Type Myofascial Release Intensity/Depth Moderate Body Position Prone Comments Increased pain in L lateral L5 PT-OP-R Modalities Start: 03/05/19 07:29 Freq: Status: Active Protocol: Document 05/18/19 15:14 DLM (Rec: 05/18/19 15:30 DLM [id number]) Hot Pack/Cold Pack Treatment Ice Location lumbosacral area Patient Position Prone Treatment Duration (minutes) 10 PT-OP-T Assessment and Plan Start: 03/05/19 07:29 Freq: Status: Active Protocol: Document 06/01/19 14:34 EG (Rec: 06/01/19 15:58 EG [id number]) Physical Therapy Assessment Assessment Summary Assessment Patient has been seeing improvement with physical therapy but does still have increased tension in the L piriformis and discomfort of L5 spinous process and transverse process. Her biggest concern is currently walking on uneven surfaces as well as up and down stairs and should continue with gluteal strength training and core control to help with stabilization during these movements. Continue with myofascial release of the piriformis and gluteal muscles . Physical Therapy Plan Frequency and Duration Frequency of Treatment 2x/Week Duration of Treatment 4 weeks more Plan of Care Start Date 05/07/19 Plan of Care End Date 07/06/19 Next Visit Focus/Plan Next Note Type Treatment Note Next Visit Plan Check insurance pre- authorization and discuss scheduling with patient. Continue with piriformis and gluteal soft tissue mobilization. Attempt walking on unstable surfaces wth obstacles under mat. IClaudia DPT, supervised all treatment performed by, and agreed with the plan of care, as performed by NATASHA Raygoza.
--- NOTE | 2019-06-04 11:51 | PT-OP ANOTE ---
Pt's appt cancelled due to needing authorization for more visits, next appt set up for 06/06/19, message left via front end ui developer/insurance specialty staff [phone] today.
--- NOTE | 2019-06-06 15:22 | PT.OTN ---
Current Diagnoses Spondylosis without myelopathy or radiculopathy, lumbosacral region (06/06/19) Physical Therapy Treatment Note PT-OP-A Visit Information Start: 03/05/19 07:29 Freq: Status: Active Protocol: Document 06/06/19 13:59 AW (Rec: 06/06/19 15:22 AW [id number]) Out-Patient Physical Therapy Visit Information Visit Information Visit Type Treatment Note Visit Start Time 14:30 Visit Stop Time 14:13 Total Visit Minutes 43 Visit Number 22 Number of TOPOGRAPHICAL SURVEYOR Visits 0 Evaluation Information Evaluation Date 03/05/19 PT-OP-B Current Condition Start: 03/05/19 07:29 Freq: Status: Active Protocol: Document 03/05/19 08:15 AMB (Rec: 03/05/19 09:09 AMB [id number]) Current Condition History of Current Condition Onset Date 1 year ago Current Complaints back pain that radiates numbness into left great toe. History of Current Condition Edith reports a multi year history of low back pain that worsened about a year ago insidiously. 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 She does not find anything particularly helpful to reduce her pain. She did try PT years ago, and does remember the inversion table that they had was helpful. Future Testing and Treatments Planned MRI- 03/01/19: multilevel degenerative disc disease, foraminal stenosis, and facet arthorpathy, moderate central canal stenosis at L4-L5. Treatment Goals Patient/Caregiver Goals Decreae pain, go up and down stairs and walk over uneven terrain without pain Prior Functional Status Baseline Function- ADL's Independent Baseline Function- Mobility Independent Current Functional Impairments (Reported) Functional Limitations- ADL's Pt pushes through the pain to complete her work tasks and ADLs Personal Factors Other Personal Factors That May Effect type II diabetes, deperession Therapy/Recovery PT-OP-C Subjective Start: 03/05/19 07:29 Freq: Status: Active Protocol: Document 06/06/19 13:59 AW (Rec: 06/06/19 15:22 AW [id number]) OP-PT Subjective Patient Comments Patient Comments LLE radiculopathy is improving but pt still has sudden onset occasioanlly with pain down to the knee 3-4 times per week . Pt is concerned that her injection wasn't approved but she will follow up with her PCP. PT-OP-G Mobility & Gait Start: 03/05/19 07:29 Freq: Status: Active Protocol: Document 03/05/19 08:15 AMB (Rec: 03/07/19 15:59 AMB [email or web address]) OP Gait Assessment Comments Gait Comments decreased trunk rotation, stairs: ok with 4 steps with railings- did ascend/descend stairs with alternating gait. PT-OP-J Posture/Palpation/Skin Start: 03/05/19 07:29 Freq: Status: Active Protocol: Document 05/07/19 14:30 DLM (Rec: 05/07/19 16:02 DLM [id number]) Posture Evaluation Comments Posture Comments Flexed trunk in standing Palpation Assessment Location One Palpation Location Lumbar area Palpation Findings Soft Tissue Tightness,Spasm, Trigger Point Palpation Details Tightness bilateral paraspinals with left greater than right, tightness left gluteal area, left lumbo- pelvic rotation PT-OP-K Range of Motion Start: 03/05/19 07:29 Freq: Status: Active Protocol: Document 05/07/19 14:30 DLM (Rec: 05/07/19 15:55 DLM [id number]) Lumbar Spine Range of Motion Lumbar Spine Active Degrees Testing Position Standing Flexion 40 Extension 7 PT-OP-M Strength Start: 03/05/19 07:29 Freq: Status: Active Protocol: Document 03/05/19 08:15 AMB (Rec: 03/07/19 15:55 AMB [email or web address]) Hip Strength Hip Manual Muscle Testing Right Flexion (L2) 4 Good Left Flexion (L2) 4 Good Knee Strength Knee Manual Muscle Testing Right Flexion (S2) 5 Normal Extension (L3) 5 Normal Left Flexion (S2) 5 Normal Extension (L3) 5 Normal Ankle/Foot Strength Ankle and Foot Manual Muscle Testing Right Dorsiflexion (L4) 4+ Good+ Left Dorsiflexion (L4) 4+ Good+ Toe Strength Toe Manual Muscle Testing Left Great Toe Extension 5 Normal PT-OP-Q Treatments Start: 03/05/19 07:29 Freq: Status: Active Protocol: Document 06/06/19 13:59 AW (Rec: 06/06/19 15:22 AW [id number]) Gym Equipment Therapeutic Ball DKTC, SLR Exercise Details Double Knee to Chest/Supine Lumbar Roll side to side Ball Size/Color 65 inch/red ball Body Position Supine Reps/Duration 15x each way Comments Patient enjoyed this exercise. Given for HEP Therapeutic Exercises Supine Exercises bridge Supine Exercise Name Bridges with adduction Equipment Used green ball between knees Reps/Minutes 10 reps x 2 Comments 5 second hold Standing Exercises shoulder diagonal pattern, resisted Standing Exercise Name shoulder diagonal pattern, resisted Side bilateral Equipment Used level 1 Reps/Minutes TB Comments focus on core stabiity step ups Standing Exercise Name Step-Ups Resistance AROM Equipment Used 1 HR, 8 step Reps/Minutes 2x10 leading with each leg Comments cued glute activation [place] Ab press out TB Standing Exercise Name anti rotation press out/paloff press Side bilateral Resistance level 1 TB Reps/Minutes 12 reps each side x 2 Comments 1st set stationary; 2nd set with side steps Manual Therapy Treatment Soft Tissue Mobilization Gluteal & Piriformis Body Location Piriformis and Gluteal Mobilization Type Rolling,Strumming,Sustained Pressure Intensity/Depth Deep Body Position Prone Comments tenderness L piriformis; responded well to textured rolling pin PT-OP-R Modalities Start: 03/05/19 07:29 Freq: Status: Active Protocol: Document 05/18/19 15:14 DLM (Rec: 05/18/19 15:30 DLM [email or web address]) Hot Pack/Cold Pack Treatment Ice Location lumbosacral area Patient Position Prone Treatment Duration (minutes) 10 PT-OP-T Assessment and Plan Start: 03/05/19 07:29 Freq: Status: Active Protocol: Document 06/06/19 13:59 AW (Rec: 06/06/19 15:22 AW [id number]) Physical Therapy Assessment Goals Two Impairment gait Short Term Goal (STG) 05/07/19 Goal Met- Edith will ambulate on smooth surfaces for 15 minutes with back pain of 2/10 or less. STG Duration 4 weeks [place] Goal (LTG) Edith will ascend and descend a standard height stairs with alternating gait pattern without an increase in back pain. 05/07- Not met yet 06/06/19 - Not yet met. Pt can perform with alternating pattern but it increases her pain LTG Duration 12 weeks One Impairment ROM Short Term Goal (STG) Edith will increase her lumbar flexion to 45 degrees. 05/07- Improved ROM but only to 40 degrees STG Duration 10 weeks [place] Goal (LTG) Edith will improve her lumbar extension to 15 degrees. 2/10- Small improvement, goal not met yet LTG Duration 12 weeks Progress Towards Goals Progress Towards Goals Progressing Toward Goals Progress Comments she reports having a little less difficulty on stairs but still takes her time Assessment Summary Assessment Pt continues to experience LLE radicular pain to her knee ~3 -4 times per week. She is tolerating increased challenge with ther ex and feels she is benefitting from manual therapy. She would like to continue PT in order to improve function and decrease pain with daily work routine which involves long periods of standing and frequent stair climbing. PT will submit request for authorization of ongoing services. Physical Therapy Plan Frequency and Duration Frequency of Treatment 2x/Week Duration of Treatment 4 weeks more Plan of Care Start Date 05/07/19 Plan of Care End Date 07/06/19 Therapeutic Interventions Therapeutic Interventions Home Exercise Program,Joint Mobilizations,Manual Therapy, Patient/Caregiver Education, Self-Care/Home Management,Soft Tissue Mobilization,Taping, Therapeutic Activities Modalities Cold Pack/Ice Massage,Electric Stimulation,Hot Packs, Traction- Mechanical, Ultrasound Next Visit Focus/Plan Next Note Type Treatment Note Next Visit Plan Check insurance pre- authorization and discuss scheduling with patient. Continue with piriformis and gluteal soft tissue mobilization. Attempt walking on unstable surfaces wth obstacles under mat.
--- NOTE | 2019-11-01 07:17 | PT.OPDS ---
Current Diagnoses Spondylosis without myelopathy or radiculopathy, lumbosacral region (06/06/19) Visit Care Team Role Provider Type Mando Garcia DO Primary Care Provider Non-Staff Specialty: Family Practice Address: [address] [place] [address], [phone] Fax: Email: BIRDIE Ledesma Attending Provider Non-Staff Specialty: Pain Management Address: [address] [place] [address], [place], [address] Email: [email or web address] Visit Number Visit Number 22 Discharge Summary PT-OP-B Current Condition Start: 03/05/19 07:29 Freq: Status: Active Protocol: Document 03/05/19 08:15 AMB (Rec: 03/05/19 09:09 AMB [id number]) Current Condition History of Current Condition Onset Date 1 year ago Current Complaints back pain that radiates numbness into left great toe. History of Current Condition Edith reports a multi year history of low back pain that worsened about a year ago insidiously. 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 She does not find anything particularly helpful to reduce her pain. She did try PT years ago, and does remember the inversion table that they had was helpful. Future Testing and Treatments Planned MRI- 03/01/19: multilevel degenerative disc disease, foraminal stenosis, and facet arthorpathy, moderate central canal stenosis at L4-L5. Treatment Goals Patient/Caregiver Goals Decreae pain, go up and down stairs and walk over uneven terrain without pain Prior Functional Status Baseline Function- ADL's Independent Baseline Function- Mobility Independent Current Functional Impairments (Reported) Functional Limitations- ADL's Pt pushes through the pain to complete her work tasks and ADLs Personal Factors Other Personal Factors That May Effect type II diabetes, deperession Therapy/Recovery PT-OP-C Subjective Start: 03/05/19 07:29 Freq: Status: Active Protocol: Document 06/06/19 13:59 AW (Rec: 06/06/19 15:22 AW [id number]) OP-PT Subjective Patient Comments Patient Comments LLE radiculopathy is improving but pt still has sudden onset occasioanlly with pain down to the knee 3-4 times per week . Pt is concerned that her injection wasn't approved but she will follow up with her PCP. PT-OP-G Mobility & Gait Start: 03/05/19 07:29 Freq: Status: Active Protocol: Document 03/05/19 08:15 AMB (Rec: 03/07/19 15:59 AMB [email or web address]) OP Gait Assessment Comments Gait Comments decreased trunk rotation, stairs: ok with 4 steps with railings- did ascend/descend stairs with alternating gait. PT-OP-J Posture/Palpation/Skin Start: 03/05/19 07:29 Freq: Status: Active Protocol: Document 05/07/19 14:30 DLM (Rec: 05/07/19 16:02 DLM [id number]) Posture Evaluation Comments Posture Comments Flexed trunk in standing Palpation Assessment Location One Palpation Location Lumbar area Palpation Findings Soft Tissue Tightness,Spasm, Trigger Point Palpation Details Tightness bilateral paraspinals with left greater than right, tightness left gluteal area, left lumbo- pelvic rotation PT-OP-K Range of Motion Start: 03/05/19 07:29 Freq: Status: Active Protocol: Document 05/07/19 14:30 DLM (Rec: 05/07/19 15:55 DLM [id number]) Lumbar Spine Range of Motion Lumbar Spine Active Degrees Testing Position Standing Flexion 40 Extension 7 PT-OP-M Strength Start: 03/05/19 07:29 Freq: Status: Active Protocol: Document 03/05/19 08:15 AMB (Rec: 03/07/19 15:55 AMB [email or web address]) Hip Strength Hip Manual Muscle Testing Right Flexion (L2) 4 Good Left Flexion (L2) 4 Good Knee Strength Knee Manual Muscle Testing Right Flexion (S2) 5 Normal Extension (L3) 5 Normal Left Flexion (S2) 5 Normal Extension (L3) 5 Normal Ankle/Foot Strength Ankle and Foot Manual Muscle Testing Right Dorsiflexion (L4) 4+ Good+ Left Dorsiflexion (L4) 4+ Good+ Toe Strength Toe Manual Muscle Testing Left Great Toe Extension 5 Normal PT-OP-T Assessment and Plan Start: 03/05/19 07:29 Freq: Status: Active Protocol: Document 11/01/19 07:17 MB (Rec: 11/01/19 07:17 MB [id number]) Physical Therapy Plan Discharge Physical Therapy Discharge Reasons No Longer Attending PT Discharge Comments Pt has not been seen since before COVID closure. Clinic has left message to inquire about con't PT and pt has not returned call. Will d/c PT.
== END 2019-11-01 13:21 ==
LOC: PHYS 14:30
PROVIDERS: PCP Family Medicine; Visit Provider Registered Nurse
DX: M47.817 Spondylosis without myelopathy or radiculopathy, lumbosacral region (principal)
CPT/HCPCS: 97010; 97012; 97110; 97140; 97161; 97530

== ENCOUNTER → 2019-11-12 09:30 | Outpatient (CLI) | payer OTHER, SELFPAY ==
[2019-11-13 03:52] LABS: COVID19 Sendout Not Detected (Not Detect)
== END ==
PROVIDERS: PCP Family Medicine; Visit Provider Physician Assistant
DX: Z11.59 Encounter for screening for other viral diseases (principal)
CPT/HCPCS: 87635

== ENCOUNTER 2019-11-15 14:53 | Outpatient (CLI) | payer OTHER, SELFPAY ==
[2019-11-15] VITALS (9 sets, daily range): BP systolic 146–189; BP diastolic 56–82; PULSE 68–80; RESP 12–28; TEMP 36.9; O2SAT 96–98
--- NOTE | 2019-11-15 14:55 | DI.RAD.S_ITS ---
PROCEDURE: PAIN L/S FACET INJ/BLK 1ST DIPAK COMPARISON: None. INDICATIONS: SPONDYLOSIS FINDINGS: Needle tip localization has been performed bilaterally for bilateral L3 through L5 medial branch block procedures. IMPRESSION: Successful needle tip localization for 6 total levels of medial branch block procedures at the lower lumbosacral spine. Dictated by: Gabe Roberts M.D. on 11/15/2019 at 16:40 Approved by: Gabe Roberts M.D. on 11/15/2019 at 16:40
[2019-11-15] MEDS: MIDAZOLAM 5 MG/5 ML VIAL IV (15:33)
[2019-11-15] MEDS: fentaNYL 100 MCG/2 ML INJ 50 MCG IV (15:33)
--- NOTE | 2019-11-15 15:53 | P.PCN_ITS ---
Date/Time/Diagnoses Date of procedure: 11/15/19 Time of procedure: 15:53 Pre-procedure diagnosis: 1. FACET ARTHROPATHY Post-procedure diagnosis: same Procedure Notes Procedure: 1. BILATERAL L3, L4 AND L5 DIAGNOSTIC MB BLOCKS Indications: Edith is referred by Dr. Garcia for treatment of Bilateral Axial LBP. Physician: Raffi Torres Total Fluoroscopy time (seconds): 29 Total sedation minutes: 19 Complications: none Procedure in detail & Post-procedure care: DESCRIPTION OF PROCEDURE Fluoroscopically guided, contrast-controlled bilateral L3, L4 AND L5 medial branch blocks with 0.5cc of 0.5% Marcaine. Following review of allergy and review of potential side effects and complications, including, but not necessarily limited to, infection, allergic reaction, local tissue breakdown, nerve injury, paralysis, stroke and possible , the patient indicated that the patient understood and agreed to proceed. An informed consent document was signed by the patient, witnessed by a nurse, and placed in the patient's chart. After review of previous anaesthesic history and IV conscious sedation the patient was deemed safe to proceed with today's procedure with IV conscious sedation as ASA class II designation. Safety time-out was performed to confirm patient ID, procedure to be performed and site of procedure. IV sedation was accomplished with a combination of 3mg of Versed and 50mcg of Fentantyl was administered by the RN after DO order, titrated to patient comfort during the course of the procedure while the patient remained responsive to all verbal commands In the prone position, following sterile prep and drape of the lumbar region, the right L3, L4 AND L5 anatomical location of the medial branch of the dorsal ramus was identified fluoroscopically. Subsequently an anesthetic skin wheal using 1% lidocaine solution was initiated at each of the anatomical spots. Subsequently then a 22-gauge 3.5-inch spinal needle was atraumatically introduced and advanced under fluoroscopic guidance at each of the corresponding sites at the right L3, L4 and L5 MB. After negative aspiration, 0.2cc of Isovue 200 was injected, confirming placement without vascular or intrathecal uptake. Subsequently then 0.5cc of 0.5% Marcaine solution was injected at each of the corresponding sites at the right L3, L4 and L5 medial branch locations. The identical procedure was replicated on the left. The patient tolerated the procedure well without signs or symptoms of complications. The patient tolerated the procedure well without signs or symptoms of complications prior to transfer to the recovery area continued monitoring without incident. Post-procedure, the patient was monitored initiating provocative activities to measure the amount of relief from block of the facetogenic pain. The patient reported a VAS of 7 prior to the procedure and a post-procedure VAS of 1. It has been a pleasure to assist in the diagnostic and therapeutic care of your patient. POST OP INSTRUCTIONS The patient was provided with a Pain Log to complete over the next several hours and subsequent days prior to the patient's follow up with the ordering physician. If the patient has carver and checkerer specials relief to the solution applied, then they may be a candidate for medial branch rhizotomy. The patient is aware, was provided, once again, with a Pain Log and will follow up with the referring physician for review and clinical correlation
[2019-11-15] MEDS: BUPIVACAINE 0.5% (PF) VIAL 5 ML INJ (15:58)
[2019-11-15] MEDS: IOPAMIDOL 15 ML VIAL 3 ML INJ (15:59)
[2019-11-15] MEDS: LIDOCAINE 1% 20 ML 10 ML INJ (15:59)
== END 2019-11-15 16:12 | disposition home or self-care (01) ==
LOC: RAD 14:54
PROVIDERS: PCP Family Medicine; Referring Provider Family Medicine; Visit Provider Physical Medicine & Rehabilitation
DX: M47.816 Spondylosis without myelopathy or radiculopathy, lumbar region (principal); M54.5 Low back pain
CPT/HCPCS: 64493; 64494; 99152; J2250; J3010

== ENCOUNTER → 2019-11-28 15:27 | Outpatient (CLI) | payer OTHER, SELFPAY ==
--- NOTE | 2019-11-28 15:28 | DI.MRI.S_ITS ---
PROCEDURE: MR CERVICAL SPINE WO CON INDICATIONS: Cervical radiculopathy TECHNIQUE: Noncontrast sagittal T1 spin echo and T2 fast spin echo, sagittal STIR, foraminal oblique sagittal T2 fast spin echo, and axial gradient echo or T2 fast spin echo through the cervical spine. COMPARISON: [facility], MR, C-SPINE WITHOUT CONTRAST, 12/06/2012, 12:47. [facility], MR, C-SPINE WITHOUT CONTRAST, 08/29/2006, 8:30. FINDINGS: Image quality: Diagnostic, with note made of motion artifact. Alignment and Curvature: There is straightening of the normal cervical lordosis. No focal AP alignment abnormality is seen. Bone Marrow: Marrow demonstrates normal overall signal. Spinal Cord: Visualized spinal cord has normal size and signal. No cerebellar tonsillar herniation. Paraspinous Soft Tissues: No paravertebral masses. Prevertebral soft tissues are normal in thickness. C2-C3: No significant abnormality is seen. C3-C4: Mild loss of disc height is seen. Loss of disc signal is seen. Moderate generalized disc osteophyte complex is seen. There is mild right-sided and at least moderate left-sided facet hypertrophy seen. There is moderate to severe left-sided and [id number] right-sided neural foraminal narrowing seen. Minimal central canal narrowing is seen. These imaging findings have progressed compared to the prior study. C4-C5: Mild loss of disc height is seen. Loss of disc signal is seen. Mild to moderate disc osteophyte complex is seen. There is moderate to prominent right-sided and [id number] left-sided neural foraminal narrowing seen. There is moderate to severe right-sided and at least moderate left-sided neural foraminal narrowing seen at this level. Moderate central canal narrowing is seen. There is associated mass effect upon the ventral spinal cord. These imaging findings have progressed compared to the prior study. C5-C6: At least moderate loss of disc height and disc signal can be seen. There is at least moderate disc osteophyte complex seen, which is eccentric to the left. There is a central disc osteophyte protrusion seen. Mild to moderate facet hypertrophy is seen. There is moderate to severe left-sided and at least moderate right-sided neural foraminal narrowing seen. At least moderate central canal narrowing is seen, with associated mass effect upon the ventral spinal cord, as on series 4, image 23. These degenerative changes have progressed compared to 2013. C6-C7: The disc height is well-preserved. Loss of disc signal is seen at this level. Mild to moderate disc osteophyte complex is seen. Mild facet joint hypertrophy is seen. There is mild left-sided and no significant right-sided neural foraminal narrowing seen. No significant central canal narrowing is seen. Mild progression compared to 2013. C7-T1: The disc height is well-preserved. Loss of disc signal is seen at this level. A mild degree of generalized disc osteophyte complex is seen. Mild to moderate facet hypertrophy is seen. There is moderate left-sided and no significant right-sided neural foraminal narrowing seen. No significant central canal narrowing is seen. These imaging findings have progressed compared to the prior study. IMPRESSION: Multiple levels of cervical spine degenerative change are seen, which are most prominent at the C5-C6 level. These degenerative changes have progressed compared to 2013. Dictated by: Celso Cobb M.D. on 11/28/2019 at 15:17 Approved by: Celso Cobb M.D. on 11/28/2019 at 15:22
== END ==
PROVIDERS: PCP Family Medicine; Referring Provider Physical Medicine & Rehabilitation; Visit Provider Physical Medicine & Rehabilitation
DX: M47.22 Other spondylosis with radiculopathy, cervical region (principal)
CPT/HCPCS: 72141

== ENCOUNTER → 2020-01-21 08:19 | Outpatient (CLI) | payer OTHER, SELFPAY ==
--- NOTE | 2020-01-21 08:26 | DI.RAD.S_ITS ---
PROCEDURE: XR CERVICAL SPINE 4V OR 5V INDICATIONS: Cervical radiculopathy TECHNIQUE: 5 views of the cervical spine acquired. COMPARISON: None. FINDINGS: Bones: No fractures or dislocations to the C6 level. Severe neural foraminal stenosis is present on the left at C5-6. Moderate to severe neural foraminal stenosis is present on the right at C4-5 and C6-7. Severe degenerative changes present at C5-6 including osteophytosis and intervertebral disc space narrowing. No compression deformities. Soft tissues: No prevertebral soft tissue swelling. IMPRESSION: Degenerative change as above including bilateral neural foraminal stenosis. Dictated by: Iveth Herr M.D. on 01/21/2020 at 9:08 Approved by: Iveth Herr M.D. on 01/21/2020 at 9:10
[2020-01-21 09:18] LABS: Hemoglobin A1C% w Est Avg Glu 7.7 % (4.0-6.0)
[2020-01-21 10:00] LABS: Alanine Aminotransferase 18 IU/L (<35); Albumin 3.9 g/dL (3.5-5.0); Albumin Globulin Ratio 1.6 (1.0-2.8); Alkaline Phosphatase 98 U/L (38-126); Aspartate Aminotransferase 19 IU/L (14-36); BUN Creatinine Ratio 21.8 (6-22); Bilirubin Total 0.4 mg/dL (0.2-1.3); Blood Urea Nitrogen 12 mg/dL (7-17); Calcium 10.4 mg/dL (8.4-10.2); Carbon Dioxide 32 mmol/L (22-32); Chloride 104 mmol/L (98-107); Cholesterol 145 mg/dL (140-199); Estimated Glomerular Filt Rate > 60.0 mL/min (>60); Globulin 2.5 g/dL (1.7-4.1); Glucose 155 mg/dL (80-110); HDL Cholesterol 68 mg/dL (40-60); HEMOLYSIS < 15 (0-50); LDL Cholesterol Calculated 59 mg/dL (<100); Potassium 4.7 mmol/L (3.4-5.1); Sodium 140 mmol/L (137-145); Total Protein 6.4 g/dL (6.3-8.2); Triglycerides 92 mg/dL (35-150)
[2020-01-21 10:25] LABS: Creatinine Urine Random 83.7 mg/dL
[2020-01-21 10:30] LABS: Microalbumi Creatinin Ratio Ur 11.9 ug/mg CR (<30)
== END ==
PROVIDERS: PCP Internal Medicine; Referring Provider Internal Medicine; Visit Provider Internal Medicine
DX: I10 Essential (primary) hypertension (principal); E78.5 Hyperlipidemia, unspecified; E11.9 Type 2 diabetes mellitus without complications; M54.12 Radiculopathy, cervical region
CPT/HCPCS: 36415; 72050; 80053; 80061; 82043; 82570; 83036

== ENCOUNTER → 2020-02-05 14:13 | Outpatient (CLI) | payer OTHER, SELFPAY ==
--- NOTE | 2020-02-05 15:55 | DIET.PN ---
Diabetes Intake: Initial Assessment Assess: Mrs. Ho is a 64 YOF referred for type 2 diabetes. She has a long standing hx and reports diabetes education in the past. She admits she has fallen off the wagon over the last several months with her eating habits and exercise and feels she does not have support at home, but she is motivated to get back on track and lose weight. She monitors her BG 3x/day as she is on SSI novolog. Complains of recent fluid retention and is discussing with PCP replacing oral diabetes med with trulicity. She does not feel she has support at home. Labs: Per pt report: A1c: 7.7 Meds: novolog SSI; basaglar; metformin; pioglitazone Diet: per 24 hr recall: B: peanut butter on toast, fruit; oatmeal w/ walnuts; protein bar; eggs w/chz; yogurt L: shrimp salad; smoked tuna; cottage cheese; lean cuisine D: lean cuisine; meatloaf; tuna noodles w/ salad Sn: popcorn, fruit, crackers w/ chz, alessandra crk w/ almond butter Note: working to cut out soda; evening snacker Wt: 269lb Ht: 66in BMI: 43.4 BP: 140/80 DX: Altered nutrition related laboratory values related to impaired glucose metabolism, lack of previous exposure to nutrition information as evidenced by pt report, diagnosis of diabetes, previous diet high in refined carbohydrates. Intervention: 1. Completed intake assessment. Discussed barriers to care. 2. Discussed pathophysiology of diabetes. Reviewed A1c and its correlation to blood glucose numbers. Discussed recommended BG ranges. 3. Discussed importance of self-monitoring, how often, and when to check. 4. Reviewed hyper/hypoglycemia and treatment. 5. Reviewed safe disposal of equipment (strip/lancets/insulin needles). 6. Created SMART goals for pt self-care and success. 7. Discussed program curriculum outline and class needs based on individual goals. SMART Goals: 1. Pt goal weight of <200 lbs to support glucose control, reduced A1c, and improved movement and ease of exercise. Monitor/Evaluate: Pt will attend full DSME program. Basic Nutrition class scheduled for Mar 06 @ 2.
== END ==
PROVIDERS: PCP Internal Medicine; Referring Provider Internal Medicine; Visit Provider Internal Medicine
DX: E11.9 Type 2 diabetes mellitus without complications (principal); E66.9 Obesity, unspecified; Z79.4 Long term (current) use of insulin; Z68.41 Body mass index [BMI] 40.0-44.9, adult; Z71.3 Dietary counseling and surveillance
CPT/HCPCS: G0108

== ENCOUNTER → 2020-02-25 19:08 | Outpatient (ROUT) | payer OTHER, SELFPAY | PROVIDERS: PCP Internal Medicine; Visit Provider Student in an Organized Health Care Education/Training Program | DX: R39.9 Unspecified symptoms and signs involving the genitourinary system (principal) | CPT/HCPCS: 87086 ==

== ENCOUNTER → 2020-03-06 13:56 | Outpatient (CLI) | payer OTHER, SELFPAY ==
--- NOTE | 2020-03-06 15:42 | DIET.PN ---
Diabetes: Healthy Eating 1 Intervention: ? Discussed pathophysiology of diabetes and impact of nutrition/diet on blood sugar control.? Discussed fed versus non-fed state.?? ? Reviewed importance of Balance, Variety, and Moderation. ? Discussed the effect of carbohydrates/protein/fat on blood sugar control.? ? Stressed importance of consistent carbohydrate intake at each meal and provided instructions for recommended servings/portions of carbohydrates/protein per meal. Provided educational material. ? Reviewed carbohydrate counting and measuring carbohydrate content via serving sizes and reading nutrition labels.? Provided handouts.?? ? Discussed the difference between simple versus complex carbohydrates and the effect of fiber on blood sugar control.? Discussed various methods to increase fiber content in diet. ? Discussed the plate method for creating more carbohydrate conscious balanced meals. ? Stressed importance of meal timing and not going >4-5 hours between meals. Encouraged adding protein to evening snack to support glucose control overnight. ? Discussed importance of making dietary habits part of lifestyle change.
== END ==
PROVIDERS: PCP Internal Medicine; Referring Provider Internal Medicine; Visit Provider Internal Medicine
DX: E11.9 Type 2 diabetes mellitus without complications (principal); Z71.3 Dietary counseling and surveillance
CPT/HCPCS: G0109

== ENCOUNTER → 2020-03-11 14:01 | Outpatient (CLI) | payer OTHER, SELFPAY ==
--- NOTE | 2020-03-11 15:44 | DIET.PN ---
Diabetes: Healthy Eating 2 Intervention: Fats effects on glucose, weight, heart disease, cholesterol Sat Vs Unsat Protein- animal and plant based options Low, med, high fat meats Sugar substitutes Sodium Health claims Grocery shopping guidelines Eating away from home Alcohol Sick day guidelines Ketone Testing
== END ==
PROVIDERS: PCP Internal Medicine; Referring Provider Internal Medicine; Visit Provider Internal Medicine
DX: E11.9 Type 2 diabetes mellitus without complications (principal); Z71.3 Dietary counseling and surveillance
CPT/HCPCS: G0109

== ENCOUNTER → 2020-03-26 13:58 | Outpatient (CLI) | payer OTHER, SELFPAY ==
--- NOTE | 2020-03-26 14:46 | DIET.PN ---
DIABETES Nutrition Initial Assessment:? ASSESS:?? Mrs. Ho is a 65 yof??referred for type 2 diabetes seen as part of DSME program. She has been having trouble managing her blood sugars, but admits she has not been following dietary recommendations for the last few weeks. She is retiring tomorrow and looking forward to a new lifestyle and a better eating patterns. She has been under a lot of stress with work and endorses stress/emotional eating. She currently has a plan in place for getting on an exercise and eating routine with friends to support her. ??? LABS: Per pt report:? 118- 240 ? MEDS:?? novolog SSI, basaglar, metformin, pioglitazone ? DIET: Per 24-hour recall:? B: egg on toast L: turkey salad w/ crackers D: [place] salad w/ crackers Sn: walnuts Eating Out: 2-3x/wk Changes in Appetite: no change, noticing changes in cravings Nutrition Supplements: vitamin D, B vitamins ? Weight: 265lb Height: 66in BMI: ?42.8 ? Exercise:? walking daily after dinner NUTRITION DX 1. Altered Nutrition related labs related to impaired glucose metabolism, lack of previous exposure to accurate nutrition information as evidenced by pt report, dx of diabetes, previous diet high in refined carbohydrates.? INTERVENTION(s): 1. Reviewed pathophysiology of diabetes and impact of nutrition/diet on blood sugar control.? Discussed fed versus non-fed state.?? 2. Reviewed the effect of carbohydrates/protein/fat on blood sugar control.? Stressed importance of consistent carbohydrate intake at each meal and provided instructions for recommended servings/portions of carbohydrates/protein per meal. Provided pt with educational material. 3. Reviewed carbohydrate counting and measuring carbohydrate content via serving sizes and reading nutrition labels.? Provided handouts.?? 4. Stressed importance of meal timing and not going >4-5 hours between meals. Encouraged adding protein to evening snack to support glucose control overnight. Patient agreeable. 5. Discussed healthy weight loss goals of 1-2lbs per week through diet and exercise.? Pt agreeable to walking at least 30 minutes daily. 6. Recommend monitoring fasting and before meal glucose. MONITOR/EVALUATE: Anticipate good compliance.? Nutrition follow-up scheduled for 1 month.
[2020-03-26 16:12] VITALS: BMI 42.6
== END ==
PROVIDERS: PCP Internal Medicine; Referring Provider Internal Medicine; Visit Provider Internal Medicine
DX: E11.9 Type 2 diabetes mellitus without complications (principal); Z79.4 Long term (current) use of insulin; E66.9 Obesity, unspecified; Z68.41 Body mass index [BMI] 40.0-44.9, adult; Z71.3 Dietary counseling and surveillance
CPT/HCPCS: G0109

== ENCOUNTER → 2020-04-28 08:16 | Outpatient (CLI) | payer MEDICARE, OTHER, SELFPAY ==
[2020-04-28 09:04] LABS: Hemoglobin A1C% w Est Avg Glu 8.5 % (4.0-6.0)
[2020-04-28 09:32] LABS: Alanine Aminotransferase 18 IU/L (<35); Albumin Globulin Ratio 1.5 (1.0-2.8); Alkaline Phosphatase 95 U/L (38-126); Aspartate Aminotransferase 22 IU/L (14-36); BUN Creatinine Ratio 22.6 (6-22); Bilirubin Total 0.3 mg/dL (0.2-1.3); Blood Urea Nitrogen 14 mg/dL (7-17); Calcium 10.5 mg/dL (8.4-10.2); Carbon Dioxide 31 mmol/L (22-32); Chloride 102 mmol/L (98-107); Cholesterol 152 mg/dL (140-199); Estimated Glomerular Filt Rate > 60.0 mL/min (>60); Globulin 2.6 g/dL (1.7-4.1); Glucose 136 mg/dL (80-110); Sodium 138 mmol/L (137-145); Total Protein 6.6 g/dL (6.3-8.2); Triglycerides 80 mg/dL (35-150)
[2020-04-28 09:35] LABS: HDL Cholesterol 75 mg/dL (40-60); HEMOLYSIS < 15 (0-50); LDL Cholesterol Calculated 61 mg/dL (<100); Potassium 4.9 mmol/L (3.4-5.1)
== END ==
PROVIDERS: PCP Internal Medicine; Referring Provider Internal Medicine; Visit Provider Internal Medicine
DX: E11.9 Type 2 diabetes mellitus without complications (principal); I10 Essential (primary) hypertension; E78.5 Hyperlipidemia, unspecified
CPT/HCPCS: 36415; 80053; 80061; 83036

== ENCOUNTER → 2020-05-07 10:54 | Outpatient (CLI) | payer MEDICARE, OTHER, SELFPAY ==
--- NOTE | 2020-05-07 12:40 | DIET.PN ---
Diabetes Follow Up Assess: Ms. Ho was seen for 3 mo follow up visit. She continues to keep a food and blood glucose record. Since longterm she has been able to pay more attention to her eating habits and activity. She has been gardening regularly and walking 2x/day with her and dog. She has noticed a change in her blood glucose values over the last few weeks. Recently had a change in medications due to recurrent hypoglycemic events. She has been trying to get off of actos and replace with trulicity but reports insurance will not support this change. Labs: 8.5 B-200 Meds: Novolog SSI; basaglar 20 u (from 22); metformin; actos Dietary changes: cooking more from home with whole/fresh foods. Keeping track of carbs at each meal. Ht: 66in Wt: 263lb BMI: 42.4 Nutrition DX: Altered nutrition related laboratory values related to impaired glucose metabolism, lack of previous exposure to nutrition information as evidenced by pt report, diagnosis of diabetes, previous diet high in refined carbohydrates. Intervention: 1. Completed follow up assessment. Reviewed barriers to care. 2. Reviewed new labs and importance of continued BG monitoring. 3. Reviewed SMART goals and made modifications where appropriate including wt management, activity, and A1c goals. 4. Discussed plan for ongoing support. Provided information for continued support and success. Monitor/Evaluate: Pt will follow up in 3 mo to discuss new labs and barriers to care.
== END ==
PROVIDERS: PCP Internal Medicine; Referring Provider Internal Medicine; Visit Provider Internal Medicine
DX: E11.9 Type 2 diabetes mellitus without complications (principal); Z79.84 Long term (current) use of oral hypoglycemic drugs
CPT/HCPCS: G0109

== ENCOUNTER → 2020-07-25 08:32 | Outpatient (CLI) | payer MEDICARE, OTHER, SELFPAY ==
[2020-07-25 09:45] LABS: Hemoglobin A1C% w Est Avg Glu 7.8 % (4.0-6.0)
[2020-07-25 10:45] LABS: Alanine Aminotransferase 17 IU/L (<35); Albumin 3.8 g/dL (3.5-5.0); Albumin Globulin Ratio 1.5 (1.0-2.8); Alkaline Phosphatase 90 U/L (38-126); Aspartate Aminotransferase 21 IU/L (14-36); BUN Creatinine Ratio 27.6 (6-22); Bilirubin Total 0.3 mg/dL (0.2-1.3); Blood Urea Nitrogen 16 mg/dL (7-17); Calcium 10.5 mg/dL (8.4-10.2); Carbon Dioxide 27 mmol/L (22-32); Chloride 104 mmol/L (98-107); Cholesterol 146 mg/dL (140-199); Estimated Glomerular Filt Rate > 60.0 mL/min (>60); Globulin 2.5 g/dL (1.7-4.1); Glucose 102 mg/dL (80-110); HDL Cholesterol 71 mg/dL (40-60); HEMOLYSIS < 15 (0-50); LDL Cholesterol Calculated 65 mg/dL (<100); Potassium 4.6 mmol/L (3.4-5.1); Sodium 137 mmol/L (137-145); Total Protein 6.3 g/dL (6.3-8.2); Triglycerides 51 mg/dL (35-150)
== END ==
PROVIDERS: PCP Internal Medicine; Referring Provider Internal Medicine; Visit Provider Internal Medicine
DX: E11.9 Type 2 diabetes mellitus without complications (principal); I10 Essential (primary) hypertension; E78.5 Hyperlipidemia, unspecified
CPT/HCPCS: 36415; 80053; 80061; 83036

== ENCOUNTER → 2020-07-30 10:00 | Outpatient (CLI) | payer MEDICARE, OTHER, SELFPAY ==
--- NOTE | 2020-07-30 11:02 | DIET.PN ---
Diabetes Follow Up Assess: Met for Ms. Solano 6 mo follow up visit. Reports no change to eating habits. Increased stressed due to family issues and ?s health. Gardening regularly to offset. No change in medication at this time. Discussing discontinuing actos and starting trulicity. Labs: 7.8 (from 8.5) Meds: no change Dietary changes: no change Ht: 66in Wt: 264lb BMI: 42.5 Nutrition DX: Altered nutrition related laboratory values related to impaired glucose metabolism, lack of previous exposure to nutrition information as evidenced by pt report, diagnosis of diabetes, previous diet high in refined carbohydrates. Intervention: 1. Completed follow up assessment. Reviewed barriers to care. 2. Reviewed new labs and importance of continued BG monitoring. 3. Reviewed SMART goals and made modifications where appropriate including wt management, activity, and A1c goals. 4. Discussed plan for ongoing support. Provided information for continued support and success. Monitor/Evaluate: Pt will follow up in 3 mo to discuss new labs and barriers to care.
== END ==
PROVIDERS: PCP Internal Medicine; Referring Provider Internal Medicine; Visit Provider Internal Medicine
DX: E11.9 Type 2 diabetes mellitus without complications (principal)
CPT/HCPCS: G0109

== ENCOUNTER → 2020-10-27 08:21 | Outpatient (CLI) | payer MEDICARE, OTHER, SELFPAY ==
[2020-10-27 09:06] LABS: Hemoglobin A1C% w Est Avg Glu 7.3 % (4.0-6.0)
== END ==
PROVIDERS: PCP Internal Medicine; Referring Provider Internal Medicine; Visit Provider Internal Medicine
DX: E11.40 Type 2 diabetes mellitus with diabetic neuropathy, unspecified (principal)
CPT/HCPCS: 36415; 83036

== ENCOUNTER → 2021-03-17 08:29 | Outpatient (CLI) | payer MEDICARE, OTHER, SELFPAY ==
[2021-03-17 09:22] LABS: COVID19 -Nasal RAPID Negative (Negative)
== END ==
PROVIDERS: PCP Internal Medicine; Visit Provider Nurse Practitioner Family
DX: Z20.822 Contact with and (suspected) exposure to COVID-19 (principal)
CPT/HCPCS: 87635

== ENCOUNTER → 2021-06-23 10:56 | Outpatient (CLI) | payer MEDICARE, OTHER, SELFPAY ==
--- NOTE | 2021-06-26 17:26 | DIAB.INIT ---
Initial Diabetes Education Assessment Name: Edith Ho Date: 06/23/21 Time: 1110a-1210p Dx: Type II Diabetes Provider: Young Edith presents for initial visit regarding T2DM. Has received DSME from previous [facility] in 2020. 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 Wants to get back into taking care of herself. Feels things are ?out of balance?, ie getting medications, eating, meal planning. Interested in some new recipes and whole grains. Has an oat muffin recipe she is curious about. +FH of DM. She is the youngest child of 11 and all 10 siblings have DM and maternal FH of DM. Stress management: walking with dogs. Worries about 's progressive dementia, his falls, has [facility] Endorses hearing problems and often forgets to use hearing aids. Gained 2# or more over the winter. States she thinks the weight gain is from not following usual eating. Reports sometimes waking at 3am and unable to sleep. Then will eat a snack and watch TV until she falls asleep. Feels she needs reminders and support from educator. States it is somewhat overwhelming to manage self care. Has PCP visit on 07/16. Diet Recall: +/-3a: candy bar ; banana ; apple ; nuts 7a: oatmeal and nuts with raisins ; apple and PB ; egg, hernandez cheese eng muff ; toast with PB ; 30g CHO burrito 12p: leftovers 430p: 1-1.5c casserole with salad ; 2c veg soup with 3-4 crackers ; 1-1.5c pasta casserole with salad 7-8p +/-4-5 saltines with PB ; Sf ice cream/pop Beverages: diet soda, 32oz water, 1-2 sf vitamin water, coffee Anthropometrics: Ht: 66 Wt: 240# reported Physical Activity: walks dog 4x per week or more for 15-20 min; gardening Self-Monitoring Blood Glucose: Usually TID checks. Range from 120-200mg/dL. No meter today. Did not bring Novolog chart for I:C. Reports she normally takes <10u Novolog per day, usually around 5u per meal. If BG are up to 200, starts to feel headaches, fatigue, and blurred vision. Sometimes forgets to take Novolog prior to meal. Keeps meter on counter with current insulin pen, but just forgets. Low BG couple times per month. Normally when she doesn?t eat for an extended time. Low BG in the 50-65 gives symptoms shaky, hunger, irritable, fatigue. In the 70s starts to feel irritable. Carries glucotabs. Will eat 2 tabs. Feels better and does not recheck BG. Or small candy bar. Then follows up with protein, nuts or cheese. Diabetes Medications: Ozempic 1 mg weekly Metformin XR 2000mg HS Basaglar 16u HS Novolog I:C (reports taking according to how much carb she eats) Pertinent Labs: HgA1c: 7.8% 01/2021 Past Medical History: (Last Reviewed 05/27/21 @ 10:07 by Raffi Dumont MD) Asthma Cervical radiculopathy at C6 Chronic seasonal allergic rhinitis Depression Facet arthropathy, lumbosacral GERD (gastroesophageal reflux disease) Herniated nucleus pulposus, C5-6 left History of cholecystectomy History of hysterectomy History of tonsillectomy Hyperlipidemia Morbid obesity with body mass index (BMI) of 40.0 to 49.9 Obstructive sleep apnea of adult Snoring Spondylolisthesis at L4-L5 level Type 2 diabetes mellitus Intervention: This participant was very receptive. Provided appropriate educational handouts. Discussed the following topics: Completed intake assessment. Discussed barriers to care. Self monitoring and bringing in meter/log for review carb counting review Rule of 15 for lows Stress mgmgnt and BG Ways to remind her to take insulin Recipe review General recommended servings for carbohydrates at meals and snacks Role of physical activity and following guidelines for safety Created SMART goals for patient self-care and success. Goals: Bring BG next visit Bring I:C / SSI next visit Bring oat muffin recipe caddie supervisor quinoa Practice rule of 15 for lows Follow-up: ROXIE PERALES follow-up in 2-3 weeks Yolande Miguel RDN, ANGELLA Certified Diabetes Care and Cardiology Clinical Nurse Specialist P: [phone] Thank you for this referral
== END ==
PROVIDERS: PCP Internal Medicine; Referring Provider Internal Medicine; Visit Provider Internal Medicine
DX: E11.9 Type 2 diabetes mellitus without complications (principal); Z79.84 Long term (current) use of oral hypoglycemic drugs
CPT/HCPCS: G0108

== ENCOUNTER → 2021-07-29 11:00 | Outpatient (CLI) | payer MEDICARE, OTHER, SELFPAY ==
--- NOTE | 2021-07-29 17:45 | DIAB.MNT ---
Initial Diabetes Medical Nutrition Therapy Assessment Name: Edith Ho Date: 07/29/21 Time: 11:10a-12p Dx: Type II Diabetes Edith presents for visit regarding T2DM. States she has been documenting BG, food and novolog use. BG have improved. Still has a hard time cutting out fun size candies (33g CHO per serving). Reports she would like a new book for carb counting. Current book is old and falling apart. Today she brought her log book, insulin correction/I:C ratio, and oat muffin recipe for analysis. States she has not had much of an appetite recently, especially for protein. Reports upset stomach, GERD, constipation, and ab pains x 1 week. Has not contacted provider. PMH cholecystectomy. Most meals are 45-60g CHO Diet Recall: 6-9a: protein shake with fruit (45gCHO) 12p: tuna sandwich or chicken soup +/- sn: apple or orange 430p: soup or adrianne beef with noodles or beef stew with roll Anthropometrics: Ht: 5'6 Wt: 240# reported Physical Activity: walking dog 20 min daily between walk and dog park, considering recumbent bike for her and her Self-Monitoring Blood Glucose: Most reading in goal. Seems to be taking novolog appropriately per carb counting and correction. Bolded below are elevated per ADA guidelines. 3/7 elevated FBG, 2/6 elevated ac lunch, 1/3 elevated ac dinner. Denies any recent lows. Date Pre Post Pre Post Pre Post HS 07/23 124 125 88 07/24 138 137 07/25 172 112 07/26 110 98 209 5/2 122 149 /3 133 124 108 /4 115 Diabetes Medications: Ozempic 1 mg weekly Metformin XR 2000mg HS Basaglar 16u HS Novolog I:C (1:13) and correction (1:50) Pertinent Labs: States she has received new HgA1c but cannot remember. Per referal: HgA1c: 7.8% 01/2021 Past Medical History: (Last Reviewed 05/27/21 @ 10:07 by Raffi Dumont MD) Asthma Cervical radiculopathy at C6 Chronic seasonal allergic rhinitis Depression Facet arthropathy, lumbosacral GERD (gastroesophageal reflux disease) Herniated nucleus pulposus, C5-6 left History of cholecystectomy History of hysterectomy History of tonsillectomy Hyperlipidemia Morbid obesity with body mass index (BMI) of 40.0 to 49.9 Obstructive sleep apnea of adult Snoring Spondylolisthesis at L4-L5 level Type 2 diabetes mellitus Nutrition Rx: Carbohydrates: Meal: 45g Snack:15-30g Nutrition Diagnosis: - Intervention: This participant was very receptive. Provided appropriate educational handouts. Discussed the following topics: Recommended servings for carbohydrates at meals and snacks Role of physical activity and activity plan and barriers Nutrition analysis of muffin recipe Carb counting resources BG review Created SMART goals for patient self-care and success. Goals: Bring BG next visit- met Bring I:C / SSI next visit- met Bring oat muffin recipe- met supervisor buffing and pasting quinoa - in progress Practice rule of 15 for lows - in progress Try calorie sita book- new Aim for 30-45g CHO at meals and 15-30g at snacks- new Consider purchase of stationary bike- new Follow-up: ROXIE PERALES follow-up in 3-4 weeks Yolande Miguel RDN, ANGELLA Certified Diabetes Care and [place] Helper P: [phone] Thank you for this referral
== END ==
PROVIDERS: PCP Internal Medicine; Referring Provider Internal Medicine; Visit Provider Internal Medicine
DX: E11.9 Type 2 diabetes mellitus without complications (principal); Z71.3 Dietary counseling and surveillance; Z79.84 Long term (current) use of oral hypoglycemic drugs; Z79.4 Long term (current) use of insulin
CPT/HCPCS: 97803

== ENCOUNTER → 2023-01-22 08:12 | Outpatient (CLI) | payer MEDICARE, OTHER, SELFPAY | PROVIDERS: PCP Internal Medicine; Visit Provider Physician Assistant | DX: R30.0 Dysuria (principal) | CPT/HCPCS: 87077; 87086; 87186 ==

== ENCOUNTER → 2023-07-27 12:12 | Outpatient (CLI) | payer OTHER, SELFPAY ==
--- NOTE | 2023-07-27 | DI.RAD.S_ITS ---
PROCEDURE: XR KNEE LT 4V INDICATIONS: KNEE PAIN TECHNIQUE: 3 views of the knee were acquired. COMPARISON: None. FINDINGS: Bones: No fractures or dislocations. No suspicious bony lesions. Note is made of a fabella. Minimal tricompartmental joint space narrowing. Soft tissues: Small suprapatellar joint effusion seen. IMPRESSION: No acute osseous abnormality Small suprapatellar joint effusion Dictated by: Keaton Ocasio M.D. on 07/27/2023 at 16:26 Approved by: Keaton Ocasio M.D. on 07/27/2023 at 16:27
--- NOTE | 2023-07-27 | DI.RAD.S_ITS ---
PROCEDURE: XR LUMBAR SPINE 2-3V INDICATIONS: BACK PAIN TECHNIQUE: 3 views of the lumbar spine were acquired. COMPARISON: [facility], CR, XR LUMBAR SPINE 2-3V, 03/01/2019, 8:09. FINDINGS: Bones: 4 versus 5 [id number] vertebrae are present - this is difficult to evaluate due to osteopenia and large patient body habitus. Grade 1 anterolisthesis of L4 over L5 noted. Degenerative changes of the facet joints are present. Degenerative disc disease especially prominent L5-S1 and L4-L5. No vertebral body compression fracture seen. Soft tissues: Overlying bowel gas pattern is normal. Surgical clips project over the right upper quadrant IMPRESSION: Osteopenia Grade 1 anterolisthesis of L4 over L5 Degenerative disc disease at L4-L5 and L5-S1 Dictated by: Keaton Ocasio M.D. on 07/27/2023 at 16:28 Approved by: Keaton Ocasio M.D. on 07/27/2023 at 16:33
--- NOTE | 2023-07-27 | DI.RAD.S_ITS ---
PROCEDURE: XR HIP W PEL IF DONE LT 2V INDICATIONS: HIP PAIN TECHNIQUE: AP pelvis with lateral view(s) of the left hip(s). COMPARISON: None. FINDINGS: Bones: No fractures or dislocations. Pelvic ring appears intact. No suspicious bony lesions. Soft tissues: The visualized bowel gas pattern is normal. Surgical clips project over both groins IMPRESSION: No acute bony abnormality. Dictated by: Keaton Ocasio M.D. on 07/27/2023 at 16:22 Approved by: Keaton Ocaiso M.D. on 07/27/2023 at 16:26
--- NOTE | 2023-07-27 | DI.RAD.S_ITS ---
PROCEDURE: XR KNEE RT 3V INDICATIONS: KNEE PAIN TECHNIQUE: 3 views of the knee were acquired. COMPARISON: None. FINDINGS: Bones: No fractures or dislocations. No suspicious bony lesions. Minimal tricompartmental joint space narrowing. A fabella is noted. Soft tissues: No joint effusion. Small suprapatellar joint effusion IMPRESSION: No acute osseous abnormality Small suprapatellar joint effusion Dictated by: Keaton Ocasio M.D. on 07/27/2023 at 16:27 Approved by: Keaton Ocasio M.D. on 07/27/2023 at 16:28
== END ==
PROVIDERS: PCP Internal Medicine; Referring Provider Internal Medicine; Visit Provider Internal Medicine
DX: M51.36 Other intervertebral disc degeneration, lumbar region (principal); M51.37 Other intervertebral disc degeneration, lumbosacral region; M43.16 Spondylolisthesis, lumbar region; M25.462 Effusion, left knee; M25.461 Effusion, right knee; M85.88 Other specified disorders of bone density and structure, other site; M25.561 Pain in right knee; M25.562 Pain in left knee; M54.50 Low back pain, unspecified; M25.552 Pain in left hip
CPT/HCPCS: 72100; 73502; 73564

== ENCOUNTER 2023-12-14 09:00 | Outpatient (RCR) | payer OTHER, SELFPAY ==
--- NOTE | 2023-10-07 15:45 | PT.OIE ---
Current Diagnoses Other chronic pain (10/07/23) Pain in left hip (10/07/23) Pain in right knee (10/07/23) Low back pain, unspecified (10/07/23) Other lack of coordination (10/07/23) Weakness (10/07/23) Past Medical History (Last Reviewed 03/05/22 @ 09:17 by Tawanna eDe PA-C) Asthma Cervical radiculopathy at C6 Chronic seasonal allergic rhinitis Depression Facet arthropathy, lumbosacral GERD (gastroesophageal reflux disease) Herniated nucleus pulposus, C5-6 left Hyperlipidemia Morbid obesity with body mass index (BMI) of 40.0 to 49.9 Obstructive sleep apnea of adult Snoring Spondylolisthesis at L4-L5 level Type 2 diabetes mellitus Past Surgical History (Last Reviewed 03/05/22 @ 09:17 by Tawanna Dee PA-C) History of cholecystectomy History of hysterectomy History of tonsillectomy Visit Care Team Role Provider Type Iwona Bernardo MD Attending Provider Physician Family Provider Primary Care Provider Referring Provider Specialty: Internal Medicine Address: [place] [id number] Email: Physical Therapy Initial Evaluation PT-OP-A Visit Information Start: 10/05/23 09:48 Freq: Status: Active Protocol: Document 10/07/23 07:33 NM (Rec: 10/07/23 07:34 NM [id number]) Out-Patient Physical Therapy Visit Information Visit Information Visit Type Initial Evaluation Visit Note 12 visits Visit Start Time 09:04 Visit Stop Time 09:45 Visit Number 1 Evaluation Information Evaluation Date 10/07/23 Precautions Precautions Osteopenia, diabetes II, fall risk, blood pressure PT-OP-B Current Condition Start: 10/05/23 09:48 Freq: Status: Active Protocol: Document 10/07/23 07:33 NM (Rec: 10/07/23 07:34 NM [id number]) Current Condition History of Current Condition Onset Date chronic, but recent episode began in July Current Complaints pain, mobility History of Current Condition Pt presents with low back, hip , and knee pain. She reports that she is doing better compared to visit with doctor 3 weeks ago. She also reports varicose veins BLE, had them stripped previously. She reports B knee pain, L hip, B low back pain (midline pain). She has osteoporosis in her low back or neck. Pt reports no fractures except in her fingers. She reports that she does a lot of gardening and heavy lifting, reports that her back began to hurt in July. States back pain is chronic, occurs off/on; she injections in the past, which were helpful. She has had imaging of lumbar, knees, and back. She reports L hip pain and back pain with rolling over in bed; states has to pull herself over. Pt also reports L hip pain when lying down ( side or back). She has back pain with ambulation, sitting, standing. States she has given up walking, especially her dog, around early 2023. Pt has impairments in ambulation (uneven ground especially). 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) Functional Limitations- Mobility/Gait sit: 5 minutes, no changes w/ position; tends to sit in recliner, which helps stand: 20-30 minutes ambulation: I've given up on this, 2 blocks w/ Functional Limitations- Recreation/ gardening: bending, lifting, Hobbies pace self, shoveling PT-OP-C Subjective Start: 10/05/23 09:48 Freq: Status: Active Protocol: Document 10/07/23 07:33 NM (Rec: 10/07/23 07:34 NM [id number]) OP-PT Subjective Patient Comments Patient Comments Pt consents to participate in evaluation Patient Questionnaires Lower Extremity Functional Scale LEFS Score 55/80 Oswestry Low Back Index Oswestry Score 8/50 OP-PT Pain Assessment Location lumbar spine Pain Location Details midline, B Intensity 5 Scale Used Numeric (0 - 10) Description Aching Description- Other sciatic Radiating Location prn BLE to thigh Pain Aggravating Factors Position,Changing Position,ADL 's,Activity,Exercise,Standing, Sitting,Walking,Bending, Lifting Pain Alleviating Factors Cold,Elevation,Rest Comments Pain Comments Hip pain: L lateral hip pain, largely resolved (worse- walking; better- Knee pain: PT-OP-E Functional Tests Start: 10/05/23 09:48 Freq: Status: Active Protocol: Document 10/07/23 07:33 NM (Rec: 10/07/23 13:44 NM [id number]) Functional Tests Other Forward Trunk Flexion Test Name of Test measured finger tip to floor Score 8 Comment reports symptom reproduction in low back PT-OP-F Manual Assessment Start: 10/05/23 09:48 Freq: Status: Active Protocol: Document 10/07/23 07:33 NM (Rec: 10/07/23 13:44 NM [id number]) Manual Assessments Soft Tissue Assessment Soft Tissue Mobility Assessment Increased tenderness and tone of glutes/piriformis and hamstrings. Limitations in L hamstring length and B heel cord length, in addition to increased hip flexor tightness . Neural tension in LLE Joint Mobility Assessment Joint Mobility Assessment Hypermobility of lumbar spine, especially lower lumbar spine with P-A springing of spinous processes. Hypomobility of SIJ, B hips, L knee PT-OP-G Mobility & Gait Start: 10/05/23 09:48 Freq: Status: Active Protocol: Document 10/07/23 07:33 NM (Rec: 10/07/23 13:44 NM [id number]) OP Gait Assessment Gait Gait Assistance Required: Independent Distance (Feet) 150 Gait Deviations General Gait Pattern Antalgic,Flexed Trunk,Lateral Trunk Lean Factors Limiting Gait Function Factors Limiting Gait Function Decreased Activity Tolerance, Decreased Strength,Limited Range of Motion,Pain Comments Gait Comments Very stiff trunk with ambulation PT-OP-J Posture/Palpation/Skin Start: 10/05/23 09:48 Freq: Status: Active Protocol: Document 10/07/23 07:33 NM (Rec: 10/07/23 13:44 NM [id number]) Posture Evaluation Position Standing Head/C-Spine Posture Forward Head L-Spine Posture Increased Lordosis Pelvis Posture Anteriorly Tilted Hip Posture (L) Externally Rotated,(R) Externally Rotated Knee Posture (L) Genu Valgus,(R) Genu Valgus Patellar Posture (L) Superior,(R) Superior Palpation Assessment Location lumbar spine Palpation Details Tenderness along lumbar spine especially L4-L5, PSIS/SIJ No tenderness along paraspinals but does have tenderness of L glute/ piriformis, none at proximal hamstring PT-OP-K Range of Motion Start: 10/05/23 09:48 Freq: Status: Active Protocol: Document 10/07/23 07:33 NM (Rec: 10/07/23 07:34 NM [id number]) Lumbar Spine Range of Motion Lumbar Spine Active Percentage Flexion 90 Extension 100 Rotation Left 100 Rotation Right 75 Lateral Flexion Left 100 Lateral Flexion Right 100 Comments Pain with flex, R LF with return Hip Goniometric Range of Motion Hip Right Flexion w/Knee Flexed 90 Abduction 20 Left Flexion w/Knee Flexed 90 Abduction 15 Comments pulling with flex, abd Knee Goniometric Range of Motion Knee Right Flexion Active (degrees) 120 Extension Active (degrees) 0 Comments HS length 160 deg Left Flexion Active (degrees) 110 Extension Active (degrees) 0 Comments HS length 150 deg PT-OP-L Special Tests Start: 10/05/23 09:48 Freq: Status: Active Protocol: Document 10/07/23 07:33 NM (Rec: 10/07/23 13:44 NM [id number]) Special Tests Lumbar Spine Special Tests Straight Leg Raise Test Results + Comments L Slump Test Results + Comments L Distraction Test Results + Comments symptom reduction Castro/quadrant Test Results + Comments R PT-OP-M Strength Start: 10/05/23 09:52 Freq: Status: Active Protocol: Document 10/07/23 07:33 NM (Rec: 10/07/23 07:34 NM [id number]) Trunk Strength Trunk Manual Muscle Testing Flexion 4 Good Extension 4 Good Comments Pain with R LF, ext Hip Strength Hip Manual Muscle Testing Right Flexion (L2) 4- Good- Extension (S1) 4- Good- Abduction 4- Good- Adduction 4- Good- External Rotation 4- Good- Internal Rotation 4- Good- Left Flexion (L2) 4- Good- Extension (S1) 4- Good- Abduction 4- Good- Adduction 4- Good- External Rotation 4- Good- Internal Rotation 4- Good- Comments pain with IR and ER Knee Strength Knee Manual Muscle Testing Left Flexion (S2) 4- Good- Extension (L3) 4- Good- Right Flexion (S2) 4- Good- Extension (L3) 4- Good- Ankle/Foot Strength Ankle and Foot Manual Muscle Testing Left Dorsiflexion (L4) 4 Good Plantarflexion (S1) 4 Good Comments tested in sitting Right Dorsiflexion (L4) 4 Good Plantarflexion (S1) 4 Good Comments tested in sitting PT-OP-Q Treatments Start: 10/05/23 09:48 Freq: Status: Active Protocol: Document 10/07/23 07:33 NM (Rec: 10/07/23 13:44 NM [id number]) Therapeutic Exercises Supine Exercises hamstring mobilization/nerve mobility Supine Exercise Name supine 90/90 (HEP) Side left Equipment Used gait belt help w/ hip flex Reps/Minutes 30 Comments reports reduced tightness; edu to stop if worsens figure 4 stretch Supine Exercise Name for hip mobility (HEP) Side bilateral Reps/Minutes 30 ea Comments feedback for good stretch, L more limited; edu pain free PT-OP-T Assessment and Plan Start: 10/05/23 09:48 Freq: Status: Active Protocol: Document 10/07/23 07:33 NM (Rec: 10/07/23 13:44 NM [id number]) Physical Therapy Assessment Rehab Potential Rehabilitation Potential Good Evaluation Complexity Number of Personal Factors/Comorbidities 3 or More Number of Body Systems Impaired 4 or More Clinical Presentation at Evaluation Stable Impairments Impairments Activity Tolerance,Balance, Edema,Functional Activities, Functional Mobility,Gait,Pain, Posture,ROM,Sensation,Soft Tissue Mobility,Strength, Transfers Other Concerns Barriers to Rehabilitation Pt has limited visits due to insurance. She has several co- morbidities, body systems impacted, and a small hx of falls. 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 him with his mobility Goals Four Impairment body mechanics Short Term Goal (STG) Pt will be educated on body mechanics specific to gardening, bending, lifting, and twisting in order to reduce injury risk and facilitation pt return to PLOF STG Duration 4 weeks Video Arcade Manager Goal (LTG) Pt will be able to perform good hip hinge without compensation while lifting small resistance for at least 8/10 reps without cueing or increase in baseline pain in order to demonstrate improved activity tolerance, symptom management, and QOL LTG Duration 10 weeks Three Impairment HEP Video Arcade Manager Goal (LTG) Pt will report compliance with HEP at least 3x/wk in order to maximize progression with PT and promote indepedence for transition to maintenance program upon discharge from PT LTG Duration 10 weeks Two Impairment strength Short Term Goal (STG) Pt will improve B hip and knees strength globally to at least 4/5 MMT in order to demonstrate increased strength for transfers, gait, and gardening STG Duration 6 weeks Senior Living Goal (LTG) Pt will improve B hip and knees strength globally to at least 4+/5 MMT in order to demonstrate increased strength for transfers, gait, and gardening LTG Duration 10 weeks One Impairment ambulation Short Term Goal (STG) Pt will report that she is able to ambulate at least 15 minutes without increase in baseline pain in order to improve activity tolerance and progress to be able to walk her dog STG Duration 6 weeks Senior Living Goal (LTG) Pt will report that she has no limitations in ambulation time or distance in order to be able to walk her dog at least 3x/wk LTG Duration 10 weeks Assessment Summary Assessment Pt is a 68 y.o. female presenting with chronic low back pain, L hip pain, and B knee pain. Pain symptoms are consistent with joint arthritis, in addition to lumbar discogenic and facet pain. Pt has impairments in ROM, strength, gait, transfers , ADLs, activity tolerance, and pain management. Her lumbar ROM is limited into flexion and R lateral flexion, which are both painful. She also has pain with resisted trunk extension and lateral flexion. Pt's hip and knees strength and ROM are limited, especially on the L side. Pt has difficulty with performing transfers and antalgic gait due to deviations related to pain, weakness, and limited ROM. Pt has limited hip flexibility, which also influences symptoms. Symptoms are reproduced with 3D testing and neural testing (e.g. slump and straight leg raise). PT educated pt on exam findings and plan of care, initiating HEP to address muscle flexibility/nerve mobility. Pt would benefit from skilled PT for progressive hip/trunk strengthening and flexibility training, body mechanics training and balance training in order to improve activity tolerance, symptom management, and QOL. Physical Therapy Plan Frequency and Duration Frequency of Treatment 1-2x/wk Duration of treatment (weeks) 10 Plan of Care Start Date 10/07/23 Plan of Care End Date 12/16/23 Therapeutic Interventions Therapeutic Interventions Balance Training,Gait Training ,Home Exercise Program,Joint Mobilizations,Manual Therapy, Neuromuscular Re-education, Orthotic/Prosthetic Management ,Patient/Caregiver Education, Self-Care/Home Management, Sensory Integration,Soft Tissue Mobilization,Taping, Therapeutic Activities, Therapeutic Exercises Modalities Cold Pack/Ice Massage,Electric Stimulation,Hot Packs, Ultrasound Next Visit Focus/Plan Next Note Type Treatment Note Next Visit Plan Review HEP Initiated flexion biase core, hip strengthening (seated hip abduction, clams, reverse clams), darrius stretch, hamstring activation
--- NOTE | 2023-10-10 08:32 | PT-OP ANOTE ---
Addendum entered and electronically signed by Alisa Mccauley, PT 10/10/23 09:43: Pt arrived late to session at 0844, PT able to accommodate due to schedule Original Note: No show- PT called and left voicemail for pt at 0832 to inform pt of missed appt today. Reminded pt of upcoming appt on 10/11, attendance policy, and informed to that she will be discharged from PT and need new referral to return if she no-shows another appt per attendance policy. PT did inform pt that she had several opening later today so pt could move today's appt but she will need to call front counter clerk to reschedule
--- NOTE | 2023-10-10 09:43 | PT.OTN ---
Current Diagnoses Other chronic pain (10/10/23) Pain in left hip (10/10/23) Pain in right knee (10/10/23) Low back pain, unspecified (10/10/23) Other lack of coordination (10/10/23) Weakness (10/10/23) Physical Therapy Treatment Note PT-OP-A Visit Information Start: 10/05/23 09:48 Freq: Status: Active Protocol: Document 10/10/23 08:48 NM (Rec: 10/10/23 09:43 NM [id number]) Out-Patient Physical Therapy Visit Information Visit Information Visit Type Treatment Note Visit Note 12 visits Visit Start Time 08:50 Visit Stop Time 08:35 Visit Number 2 Evaluation Information Evaluation Date 10/07/23 Precautions Precautions Osteopenia, diabetes II, fall risk, blood pressure PT-OP-B Current Condition Start: 10/05/23 09:48 Freq: Status: Active Protocol: Document 10/07/23 07:33 NM (Rec: 10/07/23 07:34 NM [id number]) Current Condition History of Current Condition Onset Date chronic, but recent episode began in July Current Complaints pain, mobility History of Current Condition Pt presents with low back, hip , and knee pain. She reports that she is doing better compared to visit with doctor 3 weeks ago. She also reports varicose veins BLE, had them stripped previously. She reports B knee pain, L hip, B low back pain (midline pain). She has osteoporosis in her low back or neck. Pt reports no fractures except in her fingers. She reports that she does a lot of gardening and heavy lifting, reports that her back began to hurt in July. States back pain is chronic, occurs off/on; she injections in the past, which were helpful. She has had imaging of lumbar, knees, and back. She reports L hip pain and back pain with rolling over in bed; states has to pull herself over. Pt also reports L hip pain when lying down ( side or back). She has back pain with ambulation, sitting, standing. States she has given up walking, especially her dog, around early 2023. Pt has impairments in ambulation (uneven ground especially). She had a fall 2 weeks ago, this is most recent fall (has had a few several years ago)- was wearing clogged, tripped on cement mason maintenance hose), threw herself the other way, fell on her R side onto a retaining wall and rolled down hill. 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 Reports 3-/10 in back and L hip. States laid low this past weekend. Exercises went ok, only tired them 1x since evaluation PT-OP-E Functional Tests Start: 10/05/23 09:48 Freq: Status: Active Protocol: Document 10/07/23 07:33 NM (Rec: 10/07/23 13:44 NM [id number]) Functional Tests Other Forward Trunk Flexion Test Name of Test measured finger tip to floor Score 8 Comment reports symptom reproduction in low back PT-OP-F Manual Assessment Start: 10/05/23 09:48 Freq: Status: Active Protocol: Document 10/07/23 07:33 NM (Rec: 10/07/23 13:44 NM [id number]) Manual Assessments Soft Tissue Assessment Soft Tissue Mobility Assessment Increased tenderness and tone of glutes/piriformis and hamstrings. Limitations in L hamstring length and B heel cord length, in addition to increased hip flexor tightness . Neural tension in LLE Joint Mobility Assessment Joint Mobility Assessment Hypermobility of lumbar spine, especially lower lumbar spine with P-A springing of spinous processes. Hypomobility of SIJ, B hips, L knee PT-OP-G Mobility & Gait Start: 10/05/23 09:48 Freq: Status: Active Protocol: Document 10/07/23 07:33 NM (Rec: 10/07/23 13:44 NM [id number]) OP Gait Assessment Gait Gait Assistance Required: Independent Distance (Feet) 150 Gait Deviations General Gait Pattern Antalgic,Flexed Trunk,Lateral Trunk Lean Factors Limiting Gait Function Factors Limiting Gait Function Decreased Activity Tolerance, Decreased Strength,Limited Range of Motion,Pain Comments Gait Comments Very stiff trunk with ambulation PT-OP-J Posture/Palpation/Skin Start: 10/05/23 09:48 Freq: Status: Active Protocol: Document 10/07/23 07:33 NM (Rec: 10/07/23 13:44 NM [id number]) Posture Evaluation Position Standing Head/C-Spine Posture Forward Head L-Spine Posture Increased Lordosis Pelvis Posture Anteriorly Tilted Hip Posture (L) Externally Rotated,(R) Externally Rotated Knee Posture (L) Genu Valgus,(R) Genu Valgus Patellar Posture (L) Superior,(R) Superior Palpation Assessment Location lumbar spine Palpation Details Tenderness along lumbar spine especially L4-L5, PSIS/SIJ No tenderness along paraspinals but does have tenderness of L glute/ piriformis, none at proximal hamstring PT-OP-K Range of Motion Start: 10/05/23 09:48 Freq: Status: Active Protocol: Document 10/07/23 07:33 NM (Rec: 10/07/23 07:34 NM [id number]) Lumbar Spine Range of Motion Lumbar Spine Active Percentage Flexion 90 Extension 100 Rotation Left 100 Rotation Right 75 Lateral Flexion Left 100 Lateral Flexion Right 100 Comments Pain with flex, R LF with return Hip Goniometric Range of Motion Hip Right Flexion w/Knee Flexed 90 Abduction 20 Left Flexion w/Knee Flexed 90 Abduction 15 Comments pulling with flex, abd Knee Goniometric Range of Motion Knee Right Flexion Active (degrees) 120 Extension Active (degrees) 0 Comments HS length 160 deg Left Flexion Active (degrees) 110 Extension Active (degrees) 0 Comments HS length 150 deg PT-OP-L Special Tests Start: 10/05/23 09:48 Freq: Status: Active Protocol: Document 10/07/23 07:33 NM (Rec: 10/07/23 13:44 NM [id number]) Special Tests Lumbar Spine Special Tests Straight Leg Raise Test Results + Comments L Slump Test Results + Comments L Distraction Test Results + Comments symptom reduction Castro/quadrant Test Results + Comments R PT-OP-M Strength Start: 10/05/23 09:52 Freq: Status: Active Protocol: Document 10/07/23 07:33 NM (Rec: 10/07/23 07:34 NM [id number]) Trunk Strength Trunk Manual Muscle Testing Flexion 4 Good Extension 4 Good Comments Pain with R LF, ext Hip Strength Hip Manual Muscle Testing Right Flexion (L2) 4- Good- Extension (S1) 4- Good- Abduction 4- Good- Adduction 4- Good- External Rotation 4- Good- Internal Rotation 4- Good- Left Flexion (L2) 4- Good- Extension (S1) 4- Good- Abduction 4- Good- Adduction 4- Good- External Rotation 4- Good- Internal Rotation 4- Good- Comments pain with IR and ER Knee Strength Knee Manual Muscle Testing Left Flexion (S2) 4- Good- Extension (L3) 4- Good- Right Flexion (S2) 4- Good- Extension (L3) 4- Good- Ankle/Foot Strength Ankle and Foot Manual Muscle Testing Left Dorsiflexion (L4) 4 Good Plantarflexion (S1) 4 Good Comments tested in sitting Right Dorsiflexion (L4) 4 Good Plantarflexion (S1) 4 Good Comments tested in sitting PT-OP-Q Treatments Start: 10/05/23 09:48 Freq: Status: Active Protocol: Document 10/10/23 08:48 NM (Rec: 10/10/23 09:43 NM [id number]) Therapeutic Exercises Supine Exercises lumbar traction Equipment Used legs on andorran ball (orange) Reps/Minutes 2 minutes Comments post stretching; for disc distraction TrA activation Supine Exercise Name 1. LTR, 2. abdominal brace, 3. may non-alt Reps/Minutes 1. 1 minutes ea, 2. 5x5, 3. 10 ea leg Comments good feedback for LTR, difficulty w/ core bracing; cued slower, breathwork darrius stretch Supine Exercise Name leg off table Side bilateral Reps/Minutes 2x60 Comments good feedback for quad stretch ; demos tight rectus femoris and iliopsoas B hamstring mobilization/nerve mobility Supine Exercise Name supine 90/90 (HEP review) Side bilateral Equipment Used gait belt help w/ hip flex Reps/Minutes 15 ea Comments reports tightness figure 4 stretch Supine Exercise Name for hip mobility (HEP review) Side bilateral Reps/Minutes 60 ea Comments feedback for good stretch, L more limited; edu pain free Manual Therapy Treatment Consent Patient gave verbal consent for manual Yes treatment Soft Tissue Mobilization lumbar spine/glutes/HS Body Location paraspinals, QL, glutes/ piriformis, proximal HS Mobilization Type Oscillations,Rolling Intensity/Depth Moderate Body Position Prone Comments On body pillow for comfort, good feedback to soft tissue mobilization progressing from superficial to moderate. Pt has L paraspinal atrophy, more sensitive on L side Joint Mobilizations L SIJ Direction post Grade II Body Position Prone Reps/Duration 2x30 Comments On body pillow for comfort, reports Feels good with mobilization for pain reduction. L post rotated PT-OP-T Assessment and Plan Start: 10/05/23 09:48 Freq: Status: Active Protocol: Document 10/10/23 08:48 NM (Rec: 10/10/23 09:43 NM [id number]) Physical Therapy Assessment Goals Four Impairment body mechanics Short Term Goal (STG) Pt will be educated on body mechanics specific to gardening, bending, lifting, and twisting in order to reduce injury risk and facilitation pt return to PLOF STG Duration 4 weeks Half-Way Goal (LTG) Pt will be able to perform good hip hinge without compensation while lifting small resistance for at least 8/10 reps without cueing or increase in baseline pain in order to demonstrate improved activity tolerance, symptom management, and QOL LTG Duration 10 weeks Three Impairment HEP Half-Way Goal (LTG) Pt will report compliance with HEP at least 3x/wk in order to maximize progression with PT and promote indepedence for transition to maintenance program upon discharge from PT LTG Duration 10 weeks Two Impairment strength Short Term Goal (STG) Pt will improve B hip and knees strength globally to at least 4/5 MMT in order to demonstrate increased strength for transfers, gait, and gardening STG Duration 6 weeks Half-Way Goal (LTG) Pt will improve B hip and knees strength globally to at least 4+/5 MMT in order to demonstrate increased strength for transfers, gait, and gardening LTG Duration 10 weeks One Impairment ambulation Short Term Goal (STG) Pt will report that she is able to ambulate at least 15 minutes without increase in baseline pain in order to improve activity tolerance and progress to be able to walk her dog STG Duration 6 weeks Youth Liaison Officer Goal (LTG) Pt will report that she has no limitations in ambulation time or distance in order to be able to walk her dog at least 3x/wk LTG Duration 10 weeks Assessment Summary Assessment Pt tolerated session well, but requires moderate cues for correct execution with activities to prevent lumbar spine irritation. She has most discomfort at midline lower lumbar spine, which is reduced with posterior pelvic tilt- neutral spine and with core bracing. Pt challenged with core bracing, maintaining level pelvis and keeping activation throughout movements. Responds well to stretching to improve hip flexibility and soft tissue mobilization. Pt's L SIJ and lower lumbar spine most provocative. Did not mobilize lower lumbar spine due to anterolisthesis, but pt has good feedback to grade II mobilizations at SIJ. Pt would benefit from skilled PT for progressive core and hip strengthening in addition to body mechanics and flexibility training in order to improve symptom management and activity tolerance. Physical Therapy Plan Frequency and Duration Frequency of Treatment 1-2x/wk Duration of treatment (weeks) 10 Plan of Care Start Date 10/07/23 Plan of Care End Date 12/16/23 Therapeutic Interventions Therapeutic Interventions Balance Training,Gait Training ,Home Exercise Program,Joint Mobilizations,Manual Therapy, Neuromuscular Re-education, Orthotic/Prosthetic Management ,Patient/Caregiver Education, Self-Care/Home Management, Sensory Integration,Soft Tissue Mobilization,Taping, Therapeutic Activities, Therapeutic Exercises Modalities Cold Pack/Ice Massage,Electric Stimulation,Hot Packs, Ultrasound Next Visit Focus/Plan Next Note Type Treatment Note Next Visit Plan STS with hip hinge Initiated flexion biase core, hip strengthening (seated hip abduction, clams, reverse clams), darrius stretch, hamstring activation
--- NOTE | 2023-10-12 12:42 | PT.OTN ---
Current Diagnoses Other chronic pain (10/12/23) Pain in left hip (10/12/23) Pain in right knee (10/12/23) Low back pain, unspecified (10/12/23) Other lack of coordination (10/12/23) Weakness (10/12/23) Physical Therapy Treatment Note PT-OP-A Visit Information Start: 10/05/23 09:48 Freq: Status: Active Protocol: Document 10/12/23 08:16 NM (Rec: 10/12/23 09:03 NM [id number]) Out-Patient Physical Therapy Visit Information Visit Information Visit Type Treatment Note Visit Note 12 visits Visit Start Time 08:17 Visit Stop Time 08:57 Visit Number 3 Evaluation Information Evaluation Date 10/07/23 Precautions Precautions Osteopenia, diabetes II, fall risk, blood pressure PT-OP-B Current Condition Start: 10/05/23 09:48 Freq: Status: Active Protocol: Document 10/07/23 07:33 NM (Rec: 10/07/23 07:34 NM [id number]) Current Condition History of Current Condition Onset Date chronic, but recent episode began in July Current Complaints pain, mobility History of Current Condition Pt presents with low back, hip , and knee pain. She reports that she is doing better compared to visit with doctor 3 weeks ago. She also reports varicose veins BLE, had them stripped previously. She reports B knee pain, L hip, B low back pain (midline pain). She has osteoporosis in her low back or neck. Pt reports no fractures except in her fingers. She reports that she does a lot of gardening and heavy lifting, reports that her back began to hurt in July. States back pain is chronic, occurs off/on; she injections in the past, which were helpful. She has had imaging of lumbar, knees, and back. She reports L hip pain and back pain with rolling over in bed; states has to pull herself over. Pt also reports L hip pain when lying down ( side or back). She has back pain with ambulation, sitting, standing. States she has given up walking, especially her dog, around early 2023. Pt has impairments in ambulation (uneven ground especially). She had a fall 2 weeks ago, this is most recent fall (has had a few several years ago)- was wearing clogged, tripped on fish liver sorter hose), threw herself the other way, fell on her R side onto a retaining wall and rolled down hill. 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 Sore after last session PT-OP-E Functional Tests Start: 10/05/23 09:48 Freq: Status: Active Protocol: Document 10/07/23 07:33 NM (Rec: 10/07/23 13:44 NM [id number]) Functional Tests Other Forward Trunk Flexion Test Name of Test measured finger tip to floor Score 8 Comment reports symptom reproduction in low back PT-OP-F Manual Assessment Start: 10/05/23 09:48 Freq: Status: Active Protocol: Document 10/07/23 07:33 NM (Rec: 10/07/23 13:44 NM [id number]) Manual Assessments Soft Tissue Assessment Soft Tissue Mobility Assessment Increased tenderness and tone of glutes/piriformis and hamstrings. Limitations in L hamstring length and B heel cord length, in addition to increased hip flexor tightness . Neural tension in LLE Joint Mobility Assessment Joint Mobility Assessment Hypermobility of lumbar spine, especially lower lumbar spine with P-A springing of spinous processes. Hypomobility of SIJ, B hips, L knee PT-OP-G Mobility & Gait Start: 10/05/23 09:48 Freq: Status: Active Protocol: Document 10/07/23 07:33 NM (Rec: 10/07/23 13:44 NM [id number]) OP Gait Assessment Gait Gait Assistance Required: Independent Distance (Feet) 150 Gait Deviations General Gait Pattern Antalgic,Flexed Trunk,Lateral Trunk Lean Factors Limiting Gait Function Factors Limiting Gait Function Decreased Activity Tolerance, Decreased Strength,Limited Range of Motion,Pain Comments Gait Comments Very stiff trunk with ambulation PT-OP-J Posture/Palpation/Skin Start: 10/05/23 09:48 Freq: Status: Active Protocol: Document 10/07/23 07:33 NM (Rec: 10/07/23 13:44 NM [id number]) Posture Evaluation Position Standing Head/C-Spine Posture Forward Head L-Spine Posture Increased Lordosis Pelvis Posture Anteriorly Tilted Hip Posture (L) Externally Rotated,(R) Externally Rotated Knee Posture (L) Genu Valgus,(R) Genu Valgus Patellar Posture (L) Superior,(R) Superior Palpation Assessment Location lumbar spine Palpation Details Tenderness along lumbar spine especially L4-L5, PSIS/SIJ No tenderness along paraspinals but does have tenderness of L glute/ piriformis, none at proximal hamstring PT-OP-K Range of Motion Start: 10/05/23 09:48 Freq: Status: Active Protocol: Document 10/07/23 07:33 NM (Rec: 10/07/23 07:34 NM [id number]) Lumbar Spine Range of Motion Lumbar Spine Active Percentage Flexion 90 Extension 100 Rotation Left 100 Rotation Right 75 Lateral Flexion Left 100 Lateral Flexion Right 100 Comments Pain with flex, R LF with return Hip Goniometric Range of Motion Hip Right Flexion w/Knee Flexed 90 Abduction 20 Left Flexion w/Knee Flexed 90 Abduction 15 Comments pulling with flex, abd Knee Goniometric Range of Motion Knee Right Flexion Active (degrees) 120 Extension Active (degrees) 0 Comments HS length 160 deg Left Flexion Active (degrees) 110 Extension Active (degrees) 0 Comments HS length 150 deg PT-OP-L Special Tests Start: 10/05/23 09:48 Freq: Status: Active Protocol: Document 10/07/23 07:33 NM (Rec: 10/07/23 13:44 NM [id number]) Special Tests Lumbar Spine Special Tests Straight Leg Raise Test Results + Comments L Slump Test Results + Comments L Distraction Test Results + Comments symptom reduction Castro/quadrant Test Results + Comments R PT-OP-M Strength Start: 10/05/23 09:52 Freq: Status: Active Protocol: Document 10/07/23 07:33 NM (Rec: 10/07/23 07:34 NM [id number]) Trunk Strength Trunk Manual Muscle Testing Flexion 4 Good Extension 4 Good Comments Pain with R LF, ext Hip Strength Hip Manual Muscle Testing Right Flexion (L2) 4- Good- Extension (S1) 4- Good- Abduction 4- Good- Adduction 4- Good- External Rotation 4- Good- Internal Rotation 4- Good- Left Flexion (L2) 4- Good- Extension (S1) 4- Good- Abduction 4- Good- Adduction 4- Good- External Rotation 4- Good- Internal Rotation 4- Good- Comments pain with IR and ER Knee Strength Knee Manual Muscle Testing Left Flexion (S2) 4- Good- Extension (L3) 4- Good- Right Flexion (S2) 4- Good- Extension (L3) 4- Good- Ankle/Foot Strength Ankle and Foot Manual Muscle Testing Left Dorsiflexion (L4) 4 Good Plantarflexion (S1) 4 Good Comments tested in sitting Right Dorsiflexion (L4) 4 Good Plantarflexion (S1) 4 Good Comments tested in sitting PT-OP-Q Treatments Start: 10/05/23 09:48 Freq: Status: Active Protocol: Document 10/12/23 08:16 NM (Rec: 10/12/23 09:03 NM [id number]) Therapeutic Exercises Supine Exercises piriformis stretch Supine Exercise Name cross body stretch Side bilateral Reps/Minutes 60 ea Comments better tolerance TrA activation Supine Exercise Name 1. abdominal brace, 2. alt may, 2. BKFO-non alt Reps/Minutes 1. 10x3, 2. 2x5 ea side w/ cue for breath coord, 3. 2x5 ea Comments no pain today w/ submax; cued act like zipping up pants darrius stretch Supine Exercise Name leg off table (HEP review) Side bilateral Equipment Used with ppt; reports slight pain in back Reps/Minutes 60 ea Comments good feedback for quad stretch ; demos tight rectus femoris and iliopsoas B Sitting Exercises hip abduction Sitting Exercise Name glute medius isometric Side bilateral Resistance level 3 band above thighs Reps/Minutes 60 Standing Exercises side steps Side bilateral Resistance level 3 band above thighs Reps/Minutes 1x20 ft, 1x10 ft (down and back) Comments cued no trunk lean; no pain but challenging Therapeutic Activity Therapeutic Activity hip hinge Name added to HEP Reps/Minutes 15 min Comments 1. self tactile cues in sitting, 2x10 2. STS with hip hinge from elevated plinth, 2x10 and 2x5 Cued for core bracing, level 1 band for glute activation. Pain free in back and hips for all reps. Performed from elevated plinth and from chair with 2 pillows to assist with control during eccentric lowering With education for rationale behind hinge for body mechanics PT-OP-T Assessment and Plan Start: 10/05/23 09:48 Freq: Status: Active Protocol: Document 10/12/23 08:16 NM (Rec: 10/12/23 09:03 NM [id number]) Physical Therapy Assessment Goals Four Impairment body mechanics Short Term Goal (STG) Pt will be educated on body mechanics specific to gardening, bending, lifting, and twisting in order to reduce injury risk and facilitation pt return to PLOF STG Duration 4 weeks [facility]iary Goal (LTG) Pt will be able to perform good hip hinge without compensation while lifting small resistance for at least 8/10 reps without cueing or increase in baseline pain in order to demonstrate improved activity tolerance, symptom management, and QOL LTG Duration 10 weeks Three Impairment HEP Penitentiary Goal (LTG) Pt will report compliance with HEP at least 3x/wk in order to maximize progression with PT and promote indepedence for transition to maintenance program upon discharge from PT LTG Duration 10 weeks Two Impairment strength Short Term Goal (STG) Pt will improve B hip and knees strength globally to at least 4/5 MMT in order to demonstrate increased strength for transfers, gait, and gardening STG Duration 6 weeks Cafeteria Director Goal (LTG) Pt will improve B hip and knees strength globally to at least 4+/5 MMT in order to demonstrate increased strength for transfers, gait, and gardening LTG Duration 10 weeks One Impairment ambulation Short Term Goal (STG) Pt will report that she is able to ambulate at least 15 minutes without increase in baseline pain in order to improve activity tolerance and progress to be able to walk her dog STG Duration 6 weeks [facility] Goal (LTG) Pt will report that she has no limitations in ambulation time or distance in order to be able to walk her dog at least 3x/wk LTG Duration 10 weeks Assessment Summary Assessment Pt tolerated session well. Demonstrates good hip hinge in sitting, during STS with self tactile cues and verbal cues. Pt has difficulty with eccentric lowering for last portion of sit to stand. Pain free during sit to standing with glute activation using band. Continued with core bracing in supine to activation good abdominal bracing. Pt able to perform most activities without increase in low back pain; however, she does report that her back muscles have worked at end of session. Pt would benefit from skilled PT for trunk/core strengthening in addition to body mechanics and flexibility training in order to improve activity tolerance and symptom management. Physical Therapy Plan Frequency and Duration Frequency of Treatment 1-2x/wk Duration of treatment (weeks) 10 Plan of Care Start Date 10/07/23 Plan of Care End Date 12/16/23 Therapeutic Interventions Therapeutic Interventions Balance Training,Gait Training ,Home Exercise Program,Joint Mobilizations,Manual Therapy, Neuromuscular Re-education, Orthotic/Prosthetic Management ,Patient/Caregiver Education, Self-Care/Home Management, Sensory Integration,Soft Tissue Mobilization,Taping, Therapeutic Activities, Therapeutic Exercises Modalities Cold Pack/Ice Massage,Electric Stimulation,Hot Packs, Ultrasound Next Visit Focus/Plan Next Note Type Treatment Note Next Visit Plan review STS with hip hinge, ask tolerance to side steps and no STM Hip hinge, disc management. If ok, retry STM to LS/glute Initiated flexion biase core, hip strengthening (seated hip abduction, clams, reverse clams), darrius stretch, hamstring activation
--- NOTE | 2023-10-17 10:48 | PT.OTN ---
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 She reports that she is doing better compared to visit with doctor 3 weeks ago. She also reports varicose veins BLE, had them stripped previously. She reports B knee pain, L hip, B low back pain (midline pain). She has osteoporosis in her low back or neck. Pt reports no fractures except in her fingers. She reports that she does a lot of gardening and heavy lifting, reports that her back began to hurt in July. States back pain is chronic, occurs off/on; she injections in the past, which were helpful. She has had imaging of lumbar, knees, and back. She reports L hip pain and back pain with rolling over in bed; states has to pull herself over. Pt also reports L hip pain when lying down ( side or back). She has back pain with ambulation, sitting, standing. States she has given up walking, especially her dog, around early 2023. Pt has impairments in ambulation (uneven ground especially). 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 Patient rates pain 2 /10 back and left hip. Patient reports she didn't get the exercises done yesterday, did some gardening the day before and was a little sore. PT-OP-E Functional Tests Start: 10/05/23 09:48 Freq: Status: Active Protocol: Document 10/07/23 07:33 NM (Rec: 10/07/23 13:44 NM [id number]) Functional Tests Other Forward Trunk Flexion Test Name of Test measured finger tip to floor Score 8 Comment reports symptom reproduction in low back PT-OP-F Manual Assessment Start: 10/05/23 09:48 Freq: Status: Active Protocol: Document 10/07/23 07:33 NM (Rec: 10/07/23 13:44 NM [id number]) Manual Assessments Soft Tissue Assessment Soft Tissue Mobility Assessment Increased tenderness and tone of glutes/piriformis and hamstrings. Limitations in L hamstring length and B heel cord length, in addition to increased hip flexor tightness . Neural tension in LLE Joint Mobility Assessment Joint Mobility Assessment Hypermobility of lumbar spine, especially lower lumbar spine with P-A springing of spinous processes. Hypomobility of SIJ, B hips, L knee PT-OP-G Mobility & Gait Start: 10/05/23 09:48 Freq: Status: Active Protocol: Document 10/07/23 07:33 NM (Rec: 10/07/23 13:44 NM [id number]) OP Gait Assessment Gait Gait Assistance Required: Independent Distance (Feet) 150 Gait Deviations General Gait Pattern Antalgic,Flexed Trunk,Lateral Trunk Lean Factors Limiting Gait Function Factors Limiting Gait Function Decreased Activity Tolerance, Decreased Strength,Limited Range of Motion,Pain Comments Gait Comments Very stiff trunk with ambulation PT-OP-J Posture/Palpation/Skin Start: 10/05/23 09:48 Freq: Status: Active Protocol: Document 10/07/23 07:33 NM (Rec: 10/07/23 13:44 NM [id number]) Posture Evaluation Position Standing Head/C-Spine Posture Forward Head L-Spine Posture Increased Lordosis Pelvis Posture Anteriorly Tilted Hip Posture (L) Externally Rotated,(R) Externally Rotated Knee Posture (L) Genu Valgus,(R) Genu Valgus Patellar Posture (L) Superior,(R) Superior Palpation Assessment Location lumbar spine Palpation Details Tenderness along lumbar spine especially L4-L5, PSIS/SIJ No tenderness along paraspinals but does have tenderness of L glute/ piriformis, none at proximal hamstring PT-OP-K Range of Motion Start: 10/05/23 09:48 Freq: Status: Active Protocol: Document 10/07/23 07:33 NM (Rec: 10/07/23 07:34 NM [id number]) Lumbar Spine Range of Motion Lumbar Spine Active Percentage Flexion 90 Extension 100 Rotation Left 100 Rotation Right 75 Lateral Flexion Left 100 Lateral Flexion Right 100 Comments Pain with flex, R LF with return Hip Goniometric Range of Motion Hip Right Flexion w/Knee Flexed 90 Abduction 20 Left Flexion w/Knee Flexed 90 Abduction 15 Comments pulling with flex, abd Knee Goniometric Range of Motion Knee Right Flexion Active (degrees) 120 Extension Active (degrees) 0 Comments HS length 160 deg Left Flexion Active (degrees) 110 Extension Active (degrees) 0 Comments HS length 150 deg PT-OP-L Special Tests Start: 10/05/23 09:48 Freq: Status: Active Protocol: Document 10/07/23 07:33 NM (Rec: 10/07/23 13:44 NM [id number]) Special Tests Lumbar Spine Special Tests Straight Leg Raise Test Results + Comments L Slump Test Results + Comments L Distraction Test Results + Comments symptom reduction Castro/quadrant Test Results + Comments R PT-OP-M Strength Start: 10/05/23 09:52 Freq: Status: Active Protocol: Document 10/07/23 07:33 NM (Rec: 10/07/23 07:34 NM [id number]) Trunk Strength Trunk Manual Muscle Testing Flexion 4 Good Extension 4 Good Comments Pain with R LF, ext Hip Strength Hip Manual Muscle Testing Right Flexion (L2) 4- Good- Extension (S1) 4- Good- Abduction 4- Good- Adduction 4- Good- External Rotation 4- Good- Internal Rotation 4- Good- Left Flexion (L2) 4- Good- Extension (S1) 4- Good- Abduction 4- Good- Adduction 4- Good- External Rotation 4- Good- Internal Rotation 4- Good- Comments pain with IR and ER Knee Strength Knee Manual Muscle Testing Left Flexion (S2) 4- Good- Extension (L3) 4- Good- Right Flexion (S2) 4- Good- Extension (L3) 4- Good- Ankle/Foot Strength Ankle and Foot Manual Muscle Testing Left Dorsiflexion (L4) 4 Good Plantarflexion (S1) 4 Good Comments tested in sitting Right Dorsiflexion (L4) 4 Good Plantarflexion (S1) 4 Good Comments tested in sitting PT-OP-Q Treatments Start: 10/05/23 09:48 Freq: Status: Active Protocol: Document 10/17/23 08:08 AB (Rec: 10/17/23 10:48 AB [id number]) Therapeutic Exercises Supine Exercises piriformis stretch Supine Exercise Name cross body stretch Side bilateral Reps/Minutes 60 ea Comments better tolerance lumbar traction Equipment Used legs on uzbek ball (orange) Reps/Minutes 2 minutes Comments post stretching; for disc distraction TrA activation Supine Exercise Name 2. BKFO-non alt Reps/Minutes X10 Comments Verbal cues to brace as LE moves out to side darrius stretch Supine Exercise Name leg off table (HEP review) Side bilateral Reps/Minutes 60 ea Comments with AROM knee flexion hamstring mobilization/nerve mobility Supine Exercise Name supine 90/90 (HEP review) Side bilateral Equipment Used with towel Reps/Minutes X5 figure 4 stretch Supine Exercise Name for hip mobility (HEP review) Side bilateral Reps/Minutes 60 ea Comments feedback for good stretch, L more limited; edu pain free Sitting Exercises hip abduction Sitting Exercise Name glute medius isometric Side bilateral Resistance level 3 band above thighs Reps/Minutes 60 Standing Exercises side steps Side bilateral Resistance level 3 band above thighs Reps/Minutes 8 feet X 3 Comments VC to avoid toeing out Therapeutic Activity Therapeutic Activity sleep position Name sidelying with pillow between knees Comments Pt ed rationale of pillow between knees. supine to and from sit Name normal movement pattern to left and right Comments verbal cues for normal movement pattern, focus on rolling fully onto side prior to sitting upright and for timing ie LE's off mat and immediately push up into sitting. Manual Therapy Treatment Soft Tissue Mobilization lumbar spine/glutes/HS Body Location paraspinals, QL, glutes/ piriformis, Mobilization Type Oscillations,Rolling Body Position Sidelying Manual Techniques MET for right AI left PI and pubic shotgun Reps/Duration 6 sec X 6 each PT-OP-T Assessment and Plan Start: 10/05/23 09:48 Freq: Status: Active Protocol: Document 10/17/23 08:08 AB (Rec: 10/17/23 10:48 AB [id number]) Physical Therapy Assessment Goals Four Impairment body mechanics Short Term Goal (STG) Pt will be educated on body mechanics specific to gardening, bending, lifting, and twisting in order to reduce injury risk and facilitation pt return to PLOF STG Duration 4 weeks Care Home Goal (LTG) Pt will be able to perform good hip hinge without compensation while lifting small resistance for at least 8/10 reps without cueing or increase in baseline pain in order to demonstrate improved activity tolerance, symptom management, and QOL LTG Duration 10 weeks Three Impairment HEP Oiler And Greaser Goal (LTG) Pt will report compliance with HEP at least 3x/wk in order to maximize progression with PT and promote indepedence for transition to maintenance program upon discharge from PT LTG Duration 10 weeks Two Impairment strength Short Term Goal (STG) Pt will improve B hip and knees strength globally to at least 4/5 MMT in order to demonstrate increased strength for transfers, gait, and gardening STG Duration 6 weeks Oiler And Greaser Goal (LTG) Pt will improve B hip and knees strength globally to at least 4+/5 MMT in order to demonstrate increased strength for transfers, gait, and gardening LTG Duration 10 weeks One Impairment ambulation Short Term Goal (STG) Pt will report that she is able to ambulate at least 15 minutes without increase in baseline pain in order to improve activity tolerance and progress to be able to walk her dog STG Duration 6 weeks Care Home Goal (LTG) Pt will report that she has no limitations in ambulation time or distance in order to be able to walk her dog at least 3x/wk LTG Duration 10 weeks Assessment Summary Assessment Patient transfers stand to sit with improved hip hinge. Patient reports feeling better end of session. HEP review this session due to patient not performing HEP yesterday. Patient ed to roll onto side prior to sitting up vs a sit up and to sleep with a pillow between knees in sidelying at home. Physical Therapy Plan Frequency and Duration Frequency of Treatment 1-2x/wk Duration of treatment (weeks) 10 Plan of Care Start Date 10/07/23 Plan of Care End Date 12/16/23 Next Visit Focus/Plan Next Note Type Treatment Note Next Visit Plan review STS with hip hinge, ask tolerance to side steps and assess donell to STM Hip hinge, disc management. If ok, retry STM to LS/glute Initiated flexion biase core, hip strengthening (seated hip abduction, clams, reverse clams), darrius stretch, hamstring activation
--- NOTE | 2023-10-19 10:55 | PT.OTN ---
Current Diagnoses Other chronic pain (10/19/23) Pain in left hip (10/19/23) Pain in right knee (10/19/23) Low back pain, unspecified (10/19/23) Other lack of coordination (10/19/23) Weakness (10/19/23) Physical Therapy Treatment Note PT-OP-A Visit Information Start: 10/05/23 09:48 Freq: Status: Active Protocol: Document 10/19/23 08:20 NM (Rec: 10/19/23 09:04 NM [id number]) Out-Patient Physical Therapy Visit Information Visit Information Visit Type Treatment Note Visit Note 12 visits Visit Start Time 08:20 Visit Stop Time 09:00 Visit Number 5 Evaluation Information Evaluation Date 10/07/23 Precautions Precautions Osteopenia, diabetes II, fall risk, blood pressure PT-OP-B Current Condition Start: 10/05/23 09:48 Freq: Status: Active Protocol: Document 10/07/23 07:33 NM (Rec: 10/07/23 07:34 NM [id number]) Current Condition History of Current Condition Onset Date chronic, but recent episode began in July Current Complaints pain, mobility History of Current Condition Pt presents with low back, hip , and knee pain. She reports that she is doing better compared to visit with doctor 3 weeks ago. She also reports varicose veins BLE, had them stripped previously. She reports B knee pain, L hip, B low back pain (midline pain). She has osteoporosis in her low back or neck. Pt reports no fractures except in her fingers. She reports that she does a lot of gardening and heavy lifting, reports that her back began to hurt in July. States back pain is chronic, occurs off/on; she injections in the past, which were helpful. She has had imaging of lumbar, knees, and back. She reports L hip pain and back pain with rolling over in bed; states has to pull herself over. Pt also reports L hip pain when lying down ( side or back). She has back pain with ambulation, sitting, standing. States she has given up walking, especially her dog, around early 2023. Pt has impairments in ambulation (uneven ground especially). She had a fall 2 weeks ago, this is most recent fall (has had a few several years ago)- was wearing clogged, tripped on piping blocker hose), threw herself the other way, fell on her R side onto a retaining wall and rolled down hill. 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 States that it bothers her. Tried sleeping with pillow btwn legs, which helped but bothered him. Also reports that she had had numbness in L big toe for years, states feels like it has moved up her foot along medial portion. The day before yesterday, she got up to go to bathroom, thought her legs were going to give out; she felt the same when she was side stepping. [place] a buckling sensation only in clinic. PT-OP-E Functional Tests Start: 10/05/23 09:48 Freq: Status: Active Protocol: Document 10/07/23 07:33 NM (Rec: 10/07/23 13:44 NM [id number]) Functional Tests Other Forward Trunk Flexion Test Name of Test measured finger tip to floor Score 8 Comment reports symptom reproduction in low back PT-OP-F Manual Assessment Start: 10/05/23 09:48 Freq: Status: Active Protocol: Document 10/07/23 07:33 NM (Rec: 10/07/23 13:44 NM [id number]) Manual Assessments Soft Tissue Assessment Soft Tissue Mobility Assessment Increased tenderness and tone of glutes/piriformis and hamstrings. Limitations in L hamstring length and B heel cord length, in addition to increased hip flexor tightness . Neural tension in LLE Joint Mobility Assessment Joint Mobility Assessment Hypermobility of lumbar spine, especially lower lumbar spine with P-A springing of spinous processes. Hypomobility of SIJ, B hips, L knee PT-OP-G Mobility & Gait Start: 10/05/23 09:48 Freq: Status: Active Protocol: Document 10/07/23 07:33 NM (Rec: 10/07/23 13:44 NM [id number]) OP Gait Assessment Gait Gait Assistance Required: Independent Distance (Feet) 150 Gait Deviations General Gait Pattern Antalgic,Flexed Trunk,Lateral Trunk Lean Factors Limiting Gait Function Factors Limiting Gait Function Decreased Activity Tolerance, Decreased Strength,Limited Range of Motion,Pain Comments Gait Comments Very stiff trunk with ambulation PT-OP-J Posture/Palpation/Skin Start: 10/05/23 09:48 Freq: Status: Active Protocol: Document 10/07/23 07:33 NM (Rec: 10/07/23 13:44 NM [id number]) Posture Evaluation Position Standing Head/C-Spine Posture Forward Head L-Spine Posture Increased Lordosis Pelvis Posture Anteriorly Tilted Hip Posture (L) Externally Rotated,(R) Externally Rotated Knee Posture (L) Genu Valgus,(R) Genu Valgus Patellar Posture (L) Superior,(R) Superior Palpation Assessment Location lumbar spine Palpation Details Tenderness along lumbar spine especially L4-L5, PSIS/SIJ No tenderness along paraspinals but does have tenderness of L glute/ piriformis, none at proximal hamstring PT-OP-K Range of Motion Start: 10/05/23 09:48 Freq: Status: Active Protocol: Document 10/07/23 07:33 NM (Rec: 10/07/23 07:34 NM [id number]) Lumbar Spine Range of Motion Lumbar Spine Active Percentage Flexion 90 Extension 100 Rotation Left 100 Rotation Right 75 Lateral Flexion Left 100 Lateral Flexion Right 100 Comments Pain with flex, R LF with return Hip Goniometric Range of Motion Hip Right Flexion w/Knee Flexed 90 Abduction 20 Left Flexion w/Knee Flexed 90 Abduction 15 Comments pulling with flex, abd Knee Goniometric Range of Motion Knee Right Flexion Active (degrees) 120 Extension Active (degrees) 0 Comments HS length 160 deg Left Flexion Active (degrees) 110 Extension Active (degrees) 0 Comments HS length 150 deg PT-OP-L Special Tests Start: 10/05/23 09:48 Freq: Status: Active Protocol: Document 10/07/23 07:33 NM (Rec: 10/07/23 13:44 NM [id number]) Special Tests Lumbar Spine Special Tests Straight Leg Raise Test Results + Comments L Slump Test Results + Comments L Distraction Test Results + Comments symptom reduction Castro/quadrant Test Results + Comments R PT-OP-M Strength Start: 10/05/23 09:52 Freq: Status: Active Protocol: Document 10/07/23 07:33 NM (Rec: 10/07/23 07:34 NM [id number]) Trunk Strength Trunk Manual Muscle Testing Flexion 4 Good Extension 4 Good Comments Pain with R LF, ext Hip Strength Hip Manual Muscle Testing Right Flexion (L2) 4- Good- Extension (S1) 4- Good- Abduction 4- Good- Adduction 4- Good- External Rotation 4- Good- Internal Rotation 4- Good- Left Flexion (L2) 4- Good- Extension (S1) 4- Good- Abduction 4- Good- Adduction 4- Good- External Rotation 4- Good- Internal Rotation 4- Good- Comments pain with IR and ER Knee Strength Knee Manual Muscle Testing Left Flexion (S2) 4- Good- Extension (L3) 4- Good- Right Flexion (S2) 4- Good- Extension (L3) 4- Good- Ankle/Foot Strength Ankle and Foot Manual Muscle Testing Left Dorsiflexion (L4) 4 Good Plantarflexion (S1) 4 Good Comments tested in sitting Right Dorsiflexion (L4) 4 Good Plantarflexion (S1) 4 Good Comments tested in sitting PT-OP-Q Treatments Start: 10/05/23 09:48 Freq: Status: Active Protocol: Document 10/19/23 08:20 NM (Rec: 10/19/23 09:04 NM [id number]) Therapeutic Exercises Sitting Exercises czech ball Sitting Exercise Name 1. TrA w/ breathing, 2. tail wags w/ opp reach, 3. TrA may non-alt Equipment Used 65 cm ball Reps/Minutes 1. 10, 2. 10 ea direction, 5 opp reach, 3. 2x5 ea Comments feels good; LLE harder to lift, demos trunk lean Standing Exercises pallof Standing Exercise Name walkout Side bilateral Resistance level 1 band Equipment Used 2-3 steps ea direction Reps/Minutes 10 ea Comments feels activation, no pain, no increase in symptoms; feels in L upper glute Manual Therapy Treatment Consent Patient gave verbal consent for manual Yes treatment Soft Tissue Mobilization lumbar spine/glutes/HS Body Location paraspinals, QL, glutes/ piriformis, TFL Mobilization Type Oscillations,Rolling Body Position Sidelying Comments R sidelying with 2 pillows under hips to promote L lateral flexion, opening of L sided facets. Good tolerance for manual treatment today, but tenderness along paraspinals and QL on L. Trialed paraspinal elongation at QL, ribs- tolerated well, 10 on L Joint Mobilizations L hip Joint trialed in PT Direction LAD- open pack Reps/Duration 30 with oscillation Comments feels in low back near spine so d/c, but reports feels good in hip joint Manual Techniques Dallison's maneuver Type trunk flex with L SB and rot, RLE crossed over L Body Position Hooklying Reps/Duration 2 minutes Comments Reports no symptoms and states feels really good, I don't feel anything in my legs MET for right AI left PI and pubic shotgun Reps/Duration 6 sec X 6 each Comments retested afterward, reports feels good. Recommended against performing at home PT-OP-T Assessment and Plan Start: 10/05/23 09:48 Freq: Status: Active Protocol: Document 10/19/23 08:20 NM (Rec: 10/19/23 09:04 NM [id number]) Physical Therapy Assessment Goals Four Impairment body mechanics Short Term Goal (STG) Pt will be educated on body mechanics specific to gardening, bending, lifting, and twisting in order to reduce injury risk and facilitation pt return to PLOF STG Duration 4 weeks Application Services Manager Goal (LTG) Pt will be able to perform good hip hinge without compensation while lifting small resistance for at least 8/10 reps without cueing or increase in baseline pain in order to demonstrate improved activity tolerance, symptom management, and QOL LTG Duration 10 weeks Three Impairment HEP Application Services Manager Goal (LTG) Pt will report compliance with HEP at least 3x/wk in order to maximize progression with PT and promote indepedence for transition to maintenance program upon discharge from PT LTG Duration 10 weeks Two Impairment strength Short Term Goal (STG) Pt will improve B hip and knees strength globally to at least 4/5 MMT in order to demonstrate increased strength for transfers, gait, and gardening STG Duration 6 weeks Halfway Goal (LTG) Pt will improve B hip and knees strength globally to at least 4+/5 MMT in order to demonstrate increased strength for transfers, gait, and gardening LTG Duration 10 weeks One Impairment ambulation Short Term Goal (STG) Pt will report that she is able to ambulate at least 15 minutes without increase in baseline pain in order to improve activity tolerance and progress to be able to walk her dog STG Duration 6 weeks Halfway Goal (LTG) Pt will report that she has no limitations in ambulation time or distance in order to be able to walk her dog at least 3x/wk LTG Duration 10 weeks Assessment Summary Assessment Pt tolerated session well. Good response during session with core on czech ball and pallof walk out. Best feedback with trunk/glute strengthening, demos good activation. Pt reports 1/10 pain at end of session, started at 3/10. She has improved response to soft tissue mobilization this past session but requires diffuse touch. Trialed Dallison's manuever for discogenic pain; pt responds best to L lateral flexion and rotation, reporting complete cessation of symptoms into LLE when in position. Continues to have good response to MET with R anterior innominate rotation; recommended against performing at home but will emphasizing more permanent muscle response with strengthening in future sessions. Pt had L hip pain briefly, trialed long axis distraction but discontinued due to report of feeling more in back than hip. Pt would benefit from skilled PT for progressive trunk/core/BLE strengthening in order to improve symptom management and QOL. Physical Therapy Plan Frequency and Duration Frequency of Treatment 1-2x/wk Duration of treatment (weeks) 10 Plan of Care Start Date 10/07/23 Plan of Care End Date 12/16/23 Therapeutic Interventions Therapeutic Interventions Balance Training,Gait Training ,Home Exercise Program,Joint Mobilizations,Manual Therapy, Neuromuscular Re-education, Orthotic/Prosthetic Management ,Patient/Caregiver Education, Self-Care/Home Management, Sensory Integration,Soft Tissue Mobilization,Taping, Therapeutic Activities, Therapeutic Exercises Modalities Cold Pack/Ice Massage,Electric Stimulation,Hot Packs, Ultrasound Next Visit Focus/Plan Next Note Type Treatment Note Next Visit Plan pallof walkout review and add to HEP. hip ext/flex strengthening with side steps, czech ball core- may, lat pull down; review STS with hip hinge POC: Hip hinge, disc management. If ok, retry STM to LS/glute Initiated flexion biased core, hip strengthening (seated hip abduction, clams, reverse clams), darrius stretch, hamstring activation
--- NOTE | 2023-11-03 14:33 | PT.OTN ---
Current Diagnoses Other chronic pain (11/03/23) Pain in left hip (11/03/23) Pain in right knee (11/03/23) Low back pain, unspecified (11/03/23) Other lack of coordination (11/03/23) Weakness (11/03/23) Physical Therapy Treatment Note PT-OP-A Visit Information Start: 10/05/23 09:48 Freq: Status: Active Protocol: Document 11/03/23 13:48 NM (Rec: 11/03/23 14:33 NM [id number]) Out-Patient Physical Therapy Visit Information Visit Information Visit Type Treatment Note Visit Note 12 visits Visit Start Time 13:48 Visit Stop Time 14:28 Visit Number 6 Evaluation Information Evaluation Date 10/07/23 Precautions Precautions Osteopenia, diabetes II, fall risk, blood pressure PT-OP-B Current Condition Start: 10/05/23 09:48 Freq: Status: Active Protocol: Document 10/07/23 07:33 NM (Rec: 10/07/23 07:34 NM [id number]) Current Condition History of Current Condition Onset Date chronic, but recent episode began in July Current Complaints pain, mobility History of Current Condition Pt presents with low back, hip , and knee pain. She reports that she is doing better compared to visit with doctor 3 weeks ago. She also reports varicose veins BLE, had them stripped previously. She reports B knee pain, L hip, B low back pain (midline pain). She has osteoporosis in her low back or neck. Pt reports no fractures except in her fingers. She reports that she does a lot of gardening and heavy lifting, reports that her back began to hurt in July. States back pain is chronic, occurs off/on; she injections in the past, which were helpful. She has had imaging of lumbar, knees, and back. She reports L hip pain and back pain with rolling over in bed; states has to pull herself over. Pt also reports L hip pain when lying down ( side or back). She has back pain with ambulation, sitting, standing. States she has given up walking, especially her dog, around early 2023. Pt has impairments in ambulation (uneven ground especially). 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 She reports that she was constipated, but has since had a large bowel movement and sharp pain in her back that she was feeling has since resolved. She reports that her back is still achy though but not really painful. She has been walking her dog for 5 blocks or about 15 minutes. She reports compliance with HEP, but has missed a few days. SHe has trouble with supine exercises. PT-OP-E Functional Tests Start: 10/05/23 09:48 Freq: Status: Active Protocol: Document 10/07/23 07:33 NM (Rec: 10/07/23 13:44 NM [id number]) Functional Tests Other Forward Trunk Flexion Test Name of Test measured finger tip to floor Score 8 Comment reports symptom reproduction in low back PT-OP-F Manual Assessment Start: 10/05/23 09:48 Freq: Status: Active Protocol: Document 10/07/23 07:33 NM (Rec: 10/07/23 13:44 NM [id number]) Manual Assessments Soft Tissue Assessment Soft Tissue Mobility Assessment Increased tenderness and tone of glutes/piriformis and hamstrings. Limitations in L hamstring length and B heel cord length, in addition to increased hip flexor tightness . Neural tension in LLE Joint Mobility Assessment Joint Mobility Assessment Hypermobility of lumbar spine, especially lower lumbar spine with P-A springing of spinous processes. Hypomobility of SIJ, B hips, L knee PT-OP-G Mobility & Gait Start: 10/05/23 09:48 Freq: Status: Active Protocol: Document 10/07/23 07:33 NM (Rec: 10/07/23 13:44 NM [id number]) OP Gait Assessment Gait Gait Assistance Required: Independent Distance (Feet) 150 Gait Deviations General Gait Pattern Antalgic,Flexed Trunk,Lateral Trunk Lean Factors Limiting Gait Function Factors Limiting Gait Function Decreased Activity Tolerance, Decreased Strength,Limited Range of Motion,Pain Comments Gait Comments Very stiff trunk with ambulation PT-OP-J Posture/Palpation/Skin Start: 10/05/23 09:48 Freq: Status: Active Protocol: Document 10/07/23 07:33 NM (Rec: 10/07/23 13:44 NM [id number]) Posture Evaluation Position Standing Head/C-Spine Posture Forward Head L-Spine Posture Increased Lordosis Pelvis Posture Anteriorly Tilted Hip Posture (L) Externally Rotated,(R) Externally Rotated Knee Posture (L) Genu Valgus,(R) Genu Valgus Patellar Posture (L) Superior,(R) Superior Palpation Assessment Location lumbar spine Palpation Details Tenderness along lumbar spine especially L4-L5, PSIS/SIJ No tenderness along paraspinals but does have tenderness of L glute/ piriformis, none at proximal hamstring PT-OP-K Range of Motion Start: 10/05/23 09:48 Freq: Status: Active Protocol: Document 10/07/23 07:33 NM (Rec: 10/07/23 07:34 NM [id number]) Lumbar Spine Range of Motion Lumbar Spine Active Percentage Flexion 90 Extension 100 Rotation Left 100 Rotation Right 75 Lateral Flexion Left 100 Lateral Flexion Right 100 Comments Pain with flex, R LF with return Hip Goniometric Range of Motion Hip Right Flexion w/Knee Flexed 90 Abduction 20 Left Flexion w/Knee Flexed 90 Abduction 15 Comments pulling with flex, abd Knee Goniometric Range of Motion Knee Right Flexion Active (degrees) 120 Extension Active (degrees) 0 Comments HS length 160 deg Left Flexion Active (degrees) 110 Extension Active (degrees) 0 Comments HS length 150 deg PT-OP-L Special Tests Start: 10/05/23 09:48 Freq: Status: Active Protocol: Document 10/07/23 07:33 NM (Rec: 10/07/23 13:44 NM [id number]) Special Tests Lumbar Spine Special Tests Straight Leg Raise Test Results + Comments L Slump Test Results + Comments L Distraction Test Results + Comments symptom reduction Castro/quadrant Test Results + Comments R PT-OP-M Strength Start: 10/05/23 09:52 Freq: Status: Active Protocol: Document 10/07/23 07:33 NM (Rec: 10/07/23 07:34 NM [id number]) Trunk Strength Trunk Manual Muscle Testing Flexion 4 Good Extension 4 Good Comments Pain with R LF, ext Hip Strength Hip Manual Muscle Testing Right Flexion (L2) 4- Good- Extension (S1) 4- Good- Abduction 4- Good- Adduction 4- Good- External Rotation 4- Good- Internal Rotation 4- Good- Left Flexion (L2) 4- Good- Extension (S1) 4- Good- Abduction 4- Good- Adduction 4- Good- External Rotation 4- Good- Internal Rotation 4- Good- Comments pain with IR and ER Knee Strength Knee Manual Muscle Testing Left Flexion (S2) 4- Good- Extension (L3) 4- Good- Right Flexion (S2) 4- Good- Extension (L3) 4- Good- Ankle/Foot Strength Ankle and Foot Manual Muscle Testing Left Dorsiflexion (L4) 4 Good Plantarflexion (S1) 4 Good Comments tested in sitting Right Dorsiflexion (L4) 4 Good Plantarflexion (S1) 4 Good Comments tested in sitting PT-OP-Q Treatments Start: 10/05/23 09:48 Freq: Status: Active Protocol: Document 11/03/23 13:48 NM (Rec: 11/03/23 14:33 NM [id number]) Therapeutic Exercises Sitting Exercises LAQ Side bilateral Resistance level 2 band at ankles Reps/Minutes 2x15 with 2 pause Standing Exercises modified bird dog Standing Exercise Name counter plank: 1. UE only, 2. LE only, 3. opp arm/leg Side bilateral Reps/Minutes 1. 10 ea, 2. 10 ea, 3. 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 walkout, 2. press Side bilateral Resistance 1. level 1 band, 2. level 2 band Equipment Used 3-4 steps ea direction Reps/Minutes 1. 10 ea, 2. 2x10 ea Comments improved trunk stability but prn cue for upright posture, pain free PT-OP-T Assessment and Plan Start: 10/05/23 09:48 Freq: Status: Active Protocol: Document 11/03/23 13:48 NM (Rec: 11/03/23 14:33 NM [id number]) Physical Therapy Assessment Goals Four Impairment body mechanics Short Term Goal (STG) Pt will be educated on body mechanics specific to gardening, bending, lifting, and twisting in order to reduce injury risk and facilitation pt return to PLOF 11/03/23: educated on hip hinge and body mechanics at 10/18 appt STG Duration 4 weeks Snf Goal (LTG) Pt will be able to perform good hip hinge without compensation while lifting small resistance for at least 8/10 reps without cueing or increase in baseline pain in order to demonstrate improved activity tolerance, symptom management, and QOL LTG Duration 10 weeks Three Impairment HEP [employer]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) Pt will report compliance with HEP at least 3x/wk in order to maximize progression with PT and promote indepedence for transition to maintenance program upon discharge from PT LTG Duration 10 weeks Two Impairment strength Short Term Goal (STG) Pt will improve B hip and knees strength globally to at least 4/5 MMT in order to demonstrate increased strength for transfers, gait, and gardening STG Duration 6 weeks 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) Pt will improve B hip and knees strength globally to at least 4+/5 MMT in order to demonstrate increased strength for transfers, gait, and gardening LTG Duration 10 weeks One Impairment ambulation Short Term Goal (STG) Pt will report that she is able to ambulate at least 15 minutes without increase in baseline pain in order to improve activity tolerance and progress to be able to walk her dog 11/03/23: pt reports able to ambulate 5 blocks or at least 15 minutes without increase in back pain STG Duration 6 weeks MET 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) Pt will report that she has no limitations in ambulation time or distance in order to be able to walk her dog at least 3x/wk LTG Duration 10 weeks Assessment Summary Assessment Pt tolerated session well. She has a good response to therapeutic exercise today. Able to progress from bands to cables for lat pull downs, in addition to hip 3 way with resistance band below thighs. Pt demos improved trunk posture, core bracing, and breathwork coordination with pallof walkouts, able to progress to pallof press. She does require cues for control and demonstrates moderate difficulty with maintaining core stabilization during counter bird dogs, especially with contralateral movements. Pt would benefit from skilled PT for continued flexibility training and trunk/core strengthening in order to improve symptom management and activity tolerance. Physical Therapy Plan Frequency and Duration Frequency of Treatment 1-2x/wk Duration of treatment (weeks) 10 Plan of Care Start Date 10/07/23 Plan of Care End Date 12/16/23 Therapeutic Interventions Therapeutic Interventions Balance Training,Gait Training ,Home Exercise Program,Joint Mobilizations,Manual Therapy, Neuromuscular Re-education, Orthotic/Prosthetic Management ,Patient/Caregiver Education, Self-Care/Home Management, Sensory Integration,Soft Tissue Mobilization,Taping, Therapeutic Activities, Therapeutic Exercises Modalities Cold Pack/Ice Massage,Electric Stimulation,Hot Packs, Ultrasound Next Visit Focus/Plan Next Note Type Progress Note Next Visit Plan carries, step up, leg press, kyrgyz ball core- may, lat pull down; review STS with hip hinge POC: Hip hinge, disc management. If ok, retry STM to LS/glute Initiated flexion biased core, hip strengthening (seated hip abduction, clams, reverse clams), darrius stretch, hamstring activation
--- NOTE | 2023-11-09 09:46 | PT.OTN ---
Current Diagnoses Other chronic pain (11/09/23) Pain in left hip (11/09/23) Pain in right knee (11/09/23) Low back pain, unspecified (11/09/23) Other lack of coordination (11/09/23) Weakness (11/09/23) Physical Therapy Treatment Note PT-OP-A Visit Information Start: 10/05/23 09:48 Freq: Status: Active Protocol: Document 11/09/23 09:06 NM (Rec: 11/09/23 09:45 NM [id number]) Out-Patient Physical Therapy Visit Information Visit Information Visit Type Progress Note Visit Note 12 visits Visit Start Time 09:06 Visit Stop Time 09:44 Visit Number 7 Evaluation Information Evaluation Date 10/07/23 Precautions Precautions Osteopenia, diabetes II, fall risk, blood pressure PT-OP-B Current Condition Start: 10/05/23 09:48 Freq: Status: Active Protocol: Document 10/07/23 07:33 NM (Rec: 10/07/23 07:34 NM [id number]) Current Condition History of Current Condition Onset Date chronic, but recent episode began in July Current Complaints pain, mobility History of Current Condition Pt presents with low back, hip , and knee pain. She reports that she is doing better compared to visit with doctor 3 weeks ago. She also reports varicose veins BLE, had them stripped previously. She reports B knee pain, L hip, B low back pain (midline pain). She has osteoporosis in her low back or neck. Pt reports no fractures except in her fingers. She reports that she does a lot of gardening and heavy lifting, reports that her back began to hurt in July. States back pain is chronic, occurs off/on; she injections in the past, which were helpful. She has had imaging of lumbar, knees, and back. She reports L hip pain and back pain with rolling over in bed; states has to pull herself over. Pt also reports L hip pain when lying down ( side or back). She has back pain with ambulation, sitting, standing. States she has given up walking, especially her dog, around early 2023. Pt has impairments in ambulation (uneven ground especially). She had a fall 2 weeks ago, this is most recent fall (has had a few several years ago)- was wearing clogged, tripped on distribution coordinator hose), threw herself the other way, fell on her R side onto a retaining wall and rolled down hill. 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 Hasn't had much time to do HEP but has been building a retaining wall slowly. Reports no back pain. Has been walking dog without limitations Patient Reported Progress Improving PT-OP-E Functional Tests Start: 10/05/23 09:48 Freq: Status: Active Protocol: Document 10/07/23 07:33 NM (Rec: 10/07/23 13:44 NM [id number]) Functional Tests Other Forward Trunk Flexion Test Name of Test measured finger tip to floor Score 8 Comment reports symptom reproduction in low back PT-OP-F Manual Assessment Start: 10/05/23 09:48 Freq: Status: Active Protocol: Document 10/07/23 07:33 NM (Rec: 10/07/23 13:44 NM [id number]) Manual Assessments Soft Tissue Assessment Soft Tissue Mobility Assessment Increased tenderness and tone of glutes/piriformis and hamstrings. Limitations in L hamstring length and B heel cord length, in addition to increased hip flexor tightness . Neural tension in LLE Joint Mobility Assessment Joint Mobility Assessment Hypermobility of lumbar spine, especially lower lumbar spine with P-A springing of spinous processes. Hypomobility of SIJ, B hips, L knee PT-OP-G Mobility & Gait Start: 10/05/23 09:48 Freq: Status: Active Protocol: Document 10/07/23 07:33 NM (Rec: 10/07/23 13:44 NM [id number]) OP Gait Assessment Gait Gait Assistance Required: Independent Distance (Feet) 150 Gait Deviations General Gait Pattern Antalgic,Flexed Trunk,Lateral Trunk Lean Factors Limiting Gait Function Factors Limiting Gait Function Decreased Activity Tolerance, Decreased Strength,Limited Range of Motion,Pain Comments Gait Comments Very stiff trunk with ambulation PT-OP-J Posture/Palpation/Skin Start: 10/05/23 09:48 Freq: Status: Active Protocol: Document 10/07/23 07:33 NM (Rec: 10/07/23 13:44 NM [id number]) Posture Evaluation Position Standing Head/C-Spine Posture Forward Head L-Spine Posture Increased Lordosis Pelvis Posture Anteriorly Tilted Hip Posture (L) Externally Rotated,(R) Externally Rotated Knee Posture (L) Genu Valgus,(R) Genu Valgus Patellar Posture (L) Superior,(R) Superior Palpation Assessment Location lumbar spine Palpation Details Tenderness along lumbar spine especially L4-L5, PSIS/SIJ No tenderness along paraspinals but does have tenderness of L glute/ piriformis, none at proximal hamstring PT-OP-K Range of Motion Start: 10/05/23 09:48 Freq: Status: Active Protocol: Document 11/09/23 09:06 NM (Rec: 11/09/23 09:45 NM [id number]) Lumbar Spine Range of Motion Lumbar Spine Active Percentage Flexion 90 Extension 100 Rotation Left 100 Rotation Right 75 Lateral Flexion Left 100 Lateral Flexion Right 100 Comments Pain with flex, R LF with return 11/09/23: 100% for all except flexion 90%, pain free for all PT-OP-L Special Tests Start: 10/05/23 09:48 Freq: Status: Active Protocol: Document 10/07/23 07:33 NM (Rec: 10/07/23 13:44 NM [id number]) Special Tests Lumbar Spine Special Tests Straight Leg Raise Test Results + Comments L Slump Test Results + Comments L Distraction Test Results + Comments symptom reduction Castro/quadrant Test Results + Comments R PT-OP-M Strength Start: 10/05/23 09:52 Freq: Status: Active Protocol: Document 11/09/23 09:06 NM (Rec: 11/09/23 09:45 NM [id number]) Trunk Strength Trunk Manual Muscle Testing Flexion 4 Good Extension 4 Good Comments Pain with R LF, ext 11/09/23: 4+/5 for all Hip Strength Hip Manual Muscle Testing Right Flexion (L2) 4- Good- Extension (S1) 4- Good- Abduction 4- Good- Adduction 4- Good- External Rotation 4- Good- Internal Rotation 4- Good- Comments 11/09/23: 4/5 for all Left Flexion (L2) 4- Good- Extension (S1) 4- Good- Abduction 4- Good- Adduction 4- Good- External Rotation 4- Good- Internal Rotation 4- Good- Comments pain with IR and ER 11/09/23: 4/5 for all Knee Strength Knee Manual Muscle Testing Left Flexion (S2) 4- Good- Extension (L3) 4- Good- Comments 11/09/23: 4/5 for all Right Flexion (S2) 4- Good- Extension (L3) 4- Good- Comments 11/09/23: 4/5 for al PT-OP-Q Treatments Start: 10/05/23 09:48 Freq: Status: Active Protocol: Document 11/09/23 09:06 NM (Rec: 11/09/23 09:45 NM [id number]) Therapeutic Exercises Standing Exercises carries Standing Exercise Name 1. suitcase carry, 2. symmetrical carry Side bilateral Resistance 8# db Reps/Minutes 1. 2x25 ft ea hand, 2. 2x25 Comments cued upright trunk as fatigues deadlift Side bilateral Resistance level 3 band Reps/Minutes 2x10 Comments cued initially for hip hinge, pain free lumbar stretch Standing Exercise Name HEP: 1. fwd trunk stretch, 2. lateral trunk stretch Side bilateral Equipment Used treadmill bar Reps/Minutes 1. 5x5, 2. 5x10 ea Comments pain free lat pull down Standing Exercise Name wide barrel handler Side bilateral Resistance cables 3 plates Reps/Minutes 3x10 Comments cued for breathwork, core bracing; pain free hip 3 way Standing Exercise Name HEP review Side bilateral Resistance level 3 band below thighs > ankles Equipment Used 2 finger support for balance Reps/Minutes 15 ea Comments pain free, cued upright trunk and slower motion for control pallof Standing Exercise Name HEP: 1. press, 2. press + overhead Side bilateral Resistance level 2 band Reps/Minutes 1. 30 ea, 2. 2x10 Comments improved stability and breathwork PT-OP-T Assessment and Plan Start: 10/05/23 09:48 Freq: Status: Active Protocol: Document 11/09/23 09:06 NM (Rec: 11/09/23 09:45 NM [id number]) Physical Therapy Assessment Goals Four Impairment body mechanics Short Term Goal (STG) Pt will be educated on body mechanics specific to gardening, bending, lifting, and twisting in order to reduce injury risk and facilitation pt return to PLOF 11/03/23: educated on hip hinge and body mechanics at 10/18 appt 11/09/23: pt has been lifting blocks to build retaining wall , has not had back pain STG Duration 4 weeks MET Desk Interviewer Goal (LTG) Pt will be able to perform good hip hinge without compensation while lifting small resistance for at least 8/10 reps without cueing or increase in baseline pain in order to demonstrate improved activity tolerance, symptom management, and QOL LTG Duration 10 weeks Three Impairment HEP Intermediate Goal (LTG) Pt will report compliance with HEP at least 3x/wk in order to maximize progression with PT and promote indepedence for transition to maintenance program upon discharge from PT LTG Duration 10 weeks Two Impairment strength Short Term Goal (STG) Pt will improve B hip and knees strength globally to at least 4/5 MMT in order to demonstrate increased strength for transfers, gait, and gardening 11/09/23: 4/5 MMT STG Duration 6 weeks Intermediate Goal (LTG) Pt will improve B hip and knees strength globally to at least 4+/5 MMT in order to demonstrate increased strength for transfers, gait, and gardening LTG Duration 10 weeks One Impairment ambulation Short Term Goal (STG) Pt will report that she is able to ambulate at least 15 minutes without increase in baseline pain in order to improve activity tolerance and progress to be able to walk her dog 11/03/23: pt reports able to ambulate 5 blocks or at least 15 minutes without increase in back pain STG Duration 6 weeks MET Intermediate Goal (LTG) Pt will report that she has no limitations in ambulation time or distance in order to be able to walk her dog at least 3x/wk 11/09/23: pt reports no limitations due to her back with ambulation LTG Duration 10 weeks MET Progress Towards Goals Progress Towards Goals Progressing Toward Goals Progress Comments progressing with strengthening goals Assessment Summary Assessment Pt tolerated session well without any increase in low back pain. Session emphasis on lumbar strength and flexibility, especially with lateral paraspinals. Progressed to pallof press with overhead, no change in resistance due to fatigue. Trialed both unilateral and bilateral carries to address lumbar spine stability during ambulation; pt requires occasional cues to limit lateral lean as fatigues. Progressed hip [address] resistance band and to longer lever arm, requires cues to maintain core stability and upright trunk posture as fatigues. Trialed deadlift to promote greater glute and lumbar strength during ADLs and gait. Pt reports difficulty with motion but demonstrates good form with only occasional verbal cues. She would benefit from continued skilled PT for progressive strengthening and body mechanics training in order to improve activity tolerance and symptom management. Frequency and Duration Frequency of Treatment 1-2x/wk Duration of treatment (weeks) 10 Plan of Care Start Date 10/07/23 Plan of Care End Date 12/16/23 Therapeutic Interventions Therapeutic Interventions Balance Training,Gait Training ,Home Exercise Program,Joint Mobilizations,Manual Therapy, Neuromuscular Re-education, Orthotic/Prosthetic Management ,Patient/Caregiver Education, Self-Care/Home Management, Sensory Integration,Soft Tissue Mobilization,Taping, Therapeutic Activities, Therapeutic Exercises Modalities Cold Pack/Ice Massage,Electric Stimulation,Hot Packs, Ultrasound Next Visit Focus/Plan Next Note Type Treatment Note Next Visit Plan carries asymmetrical, deadlift w/ resistance, counter bird dog, glute/hip strength- leg press/squat, step up, monster walks and side steps, resisted bungee stepping for trunk stability, lumbar and core strength- lat, paraspinals POC: Hip hinge, disc management. If ok, retry STM to LS/glute
--- NOTE | 2023-11-16 12:04 | PT.OTN ---
Current Diagnoses Other chronic pain (11/16/23) Pain in left hip (11/16/23) Pain in right knee (11/16/23) Low back pain, unspecified (11/16/23) Other lack of coordination (11/16/23) Weakness (11/16/23) Physical Therapy Treatment Note PT-OP-A Visit Information Start: 10/05/23 09:48 Freq: Status: Active Protocol: Document 11/16/23 08:10 AB (Rec: 11/16/23 09:46 AB [id number]) Out-Patient Physical Therapy Visit Information Visit Information Visit Type Treatment Note Visit Note 12 visits Visit Start Time 09:02 Visit Stop Time 09:45 Visit Number 8 Number of HEAD OF HISTORY Visits 1 Evaluation Information Evaluation Date 10/07/23 Precautions Precautions Osteopenia, diabetes II, fall risk, blood pressure PT-OP-B Current Condition Start: 10/05/23 09:48 Freq: Status: Active Protocol: Document 10/07/23 07:33 NM (Rec: 10/07/23 07:34 NM [id number]) Current Condition History of Current Condition Onset Date chronic, but recent episode began in July Current Complaints pain, mobility History of Current Condition Pt presents with low back, hip , and knee pain. She reports that she is doing better compared to visit with doctor 3 weeks ago. She also reports varicose veins BLE, had them stripped previously. She reports B knee pain, L hip, B low back pain (midline pain). She has osteoporosis in her low back or neck. Pt reports no fractures except in her fingers. She reports that she does a lot of gardening and heavy lifting, reports that her back began to hurt in July. States back pain is chronic, occurs off/on; she injections in the past, which were helpful. She has had imaging of lumbar, knees, and back. She reports L hip pain and back pain with rolling over in bed; states has to pull herself over. Pt also reports L hip pain when lying down ( side or back). She has back pain with ambulation, sitting, standing. States she has given up walking, especially her dog, around early 2023. Pt has impairments in ambulation (uneven ground especially). 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 Patient rates back and right arm pain 2/10 start of session . PT-OP-E Functional Tests Start: 10/05/23 09:48 Freq: Status: Active Protocol: Document 10/07/23 07:33 NM (Rec: 10/07/23 13:44 NM [id number]) Functional Tests Other Forward Trunk Flexion Test Name of Test measured finger tip to floor Score 8 Comment reports symptom reproduction in low back PT-OP-F Manual Assessment Start: 10/05/23 09:48 Freq: Status: Active Protocol: Document 10/07/23 07:33 NM (Rec: 10/07/23 13:44 NM [id number]) Manual Assessments Soft Tissue Assessment Soft Tissue Mobility Assessment Increased tenderness and tone of glutes/piriformis and hamstrings. Limitations in L hamstring length and B heel cord length, in addition to increased hip flexor tightness . Neural tension in LLE Joint Mobility Assessment Joint Mobility Assessment Hypermobility of lumbar spine, especially lower lumbar spine with P-A springing of spinous processes. Hypomobility of SIJ, B hips, L knee PT-OP-G Mobility & Gait Start: 10/05/23 09:48 Freq: Status: Active Protocol: Document 10/07/23 07:33 NM (Rec: 10/07/23 13:44 NM [id number]) OP Gait Assessment Gait Gait Assistance Required: Independent Distance (Feet) 150 Gait Deviations General Gait Pattern Antalgic,Flexed Trunk,Lateral Trunk Lean Factors Limiting Gait Function Factors Limiting Gait Function Decreased Activity Tolerance, Decreased Strength,Limited Range of Motion,Pain Comments Gait Comments Very stiff trunk with ambulation PT-OP-J Posture/Palpation/Skin Start: 10/05/23 09:48 Freq: Status: Active Protocol: Document 10/07/23 07:33 NM (Rec: 10/07/23 13:44 NM [id number]) Posture Evaluation Position Standing Head/C-Spine Posture Forward Head L-Spine Posture Increased Lordosis Pelvis Posture Anteriorly Tilted Hip Posture (L) Externally Rotated,(R) Externally Rotated Knee Posture (L) Genu Valgus,(R) Genu Valgus Patellar Posture (L) Superior,(R) Superior Palpation Assessment Location lumbar spine Palpation Details Tenderness along lumbar spine especially L4-L5, PSIS/SIJ No tenderness along paraspinals but does have tenderness of L glute/ piriformis, none at proximal hamstring PT-OP-K Range of Motion Start: 10/05/23 09:48 Freq: Status: Active Protocol: Document 11/09/23 09:06 NM (Rec: 11/09/23 09:45 NM [id number]) Lumbar Spine Range of Motion Lumbar Spine Active Percentage Flexion 90 Extension 100 Rotation Left 100 Rotation Right 75 Lateral Flexion Left 100 Lateral Flexion Right 100 Comments Pain with flex, R LF with return 11/09/23: 100% for all except flexion 90%, pain free for all PT-OP-L Special Tests Start: 10/05/23 09:48 Freq: Status: Active Protocol: Document 10/07/23 07:33 NM (Rec: 10/07/23 13:44 NM [id number]) Special Tests Lumbar Spine Special Tests Straight Leg Raise Test Results + Comments L Slump Test Results + Comments L Distraction Test Results + Comments symptom reduction Castro/quadrant Test Results + Comments R PT-OP-M Strength Start: 10/05/23 09:52 Freq: Status: Active Protocol: Document 11/09/23 09:06 NM (Rec: 11/09/23 09:45 NM [id number]) Trunk Strength Trunk Manual Muscle Testing Flexion 4 Good Extension 4 Good Comments Pain with R LF, ext 11/09/23: 4+/5 for all Hip Strength Hip Manual Muscle Testing Right Flexion (L2) 4- Good- Extension (S1) 4- Good- Abduction 4- Good- Adduction 4- Good- External Rotation 4- Good- Internal Rotation 4- Good- Comments 11/09/23: 4/5 for all Left Flexion (L2) 4- Good- Extension (S1) 4- Good- Abduction 4- Good- Adduction 4- Good- External Rotation 4- Good- Internal Rotation 4- Good- Comments pain with IR and ER 11/09/23: 4/5 for all Knee Strength Knee Manual Muscle Testing Left Flexion (S2) 4- Good- Extension (L3) 4- Good- Comments 11/09/23: 4/5 for all Right Flexion (S2) 4- Good- Extension (L3) 4- Good- Comments 11/09/23: 4/5 for al PT-OP-Q Treatments Start: 10/05/23 09:48 Freq: Status: Active Protocol: Document 11/16/23 08:10 AB (Rec: 11/16/23 09:46 AB [id number]) Therapeutic Exercises Supine Exercises darrius stretch Supine Exercise Name leg off table (HEP review) Side bilateral Reps/Minutes 60 ea Comments with AROM knee flexion Standing Exercises hip 3 way Standing Exercise Name HEP review Side bilateral Resistance level 3 band below thighs > ankles Equipment Used 2 finger support for balance Reps/Minutes 15 ea pallof Standing Exercise Name HEP: 1. walk out 2. press Side bilateral Resistance level 1 band Reps/Minutes X10 each sie each exercise Therapeutic Activity Therapeutic Activity sit to stand Reps/Minutes 2X10 and 1 X 10 Comments Pt ed use of self tactile cues for hip hinge, final set with level 3 band Manual Therapy Treatment Soft Tissue Mobilization lumbar spine/glutes/HS Body Location LS paraspinals Mobilization Type Sustained Pressure Intensity/Depth Moderate Body Position Sidelying Comments bilateral Joint Mobilizations L hip Direction inf Grade II Body Position Hooklying Reps/Duration X12X3 PT-OP-T Assessment and Plan Start: 10/05/23 09:48 Freq: Status: Active Protocol: Document 11/16/23 08:10 AB (Rec: 11/16/23 09:46 AB [id number]) Physical Therapy Assessment Goals Four Impairment body mechanics Short Term Goal (STG) Pt will be educated on body mechanics specific to gardening, bending, lifting, and twisting in order to reduce injury risk and facilitation pt return to PLOF 11/03/23: educated on hip hinge and body mechanics at 10/18 appt 11/09/23: pt has been lifting blocks to build retaining wall , has not had back pain STG Duration 4 weeks MET Delinquent Tax Collector Assistant Goal (LTG) Pt will be able to perform good hip hinge without compensation while lifting small resistance for at least 8/10 reps without cueing or increase in baseline pain in order to demonstrate improved activity tolerance, symptom management, and QOL LTG Duration 10 weeks Three Impairment HEP Delinquent Tax Collector Assistant Goal (LTG) Pt will report compliance with HEP at least 3x/wk in order to maximize progression with PT and promote indepedence for transition to maintenance program upon discharge from PT LTG Duration 10 weeks Two Impairment strength Short Term Goal (STG) Pt will improve B hip and knees strength globally to at least 4/5 MMT in order to demonstrate increased strength for transfers, gait, and gardening 11/09/23: 4/5 MMT STG Duration 6 weeks Delinquent Tax Collector Assistant Goal (LTG) Pt will improve B hip and knees strength globally to at least 4+/5 MMT in order to demonstrate increased strength for transfers, gait, and gardening LTG Duration 10 weeks One Impairment ambulation Short Term Goal (STG) Pt will report that she is able to ambulate at least 15 minutes without increase in baseline pain in order to improve activity tolerance and progress to be able to walk her dog 11/03/23: pt reports able to ambulate 5 blocks or at least 15 minutes without increase in back pain STG Duration 6 weeks MET Delinquent Tax Collector Assistant Goal (LTG) Pt will report that she has no limitations in ambulation time or distance in order to be able to walk her dog at least 3x/wk 11/09/23: pt reports no limitations due to her back with ambulation LTG Duration 10 weeks MET Assessment Summary Assessment Patient into session with reports of increased pain, end of session reports less pain. Progressed to band above knees with sit to stand and increased reps every other day . Decreased band resistance for Pallof due to c/o shoulder pain. Physical Therapy Plan Frequency and Duration Frequency of Treatment 1-2x/wk Duration of treatment (weeks) 10 Plan of Care Start Date 10/07/23 Plan of Care End Date 12/16/23 Next Visit Focus/Plan Next Note Type Treatment Note Next Visit Plan carries asymmetrical, deadlift w/ resistance, counter bird dog, glute/hip strength- leg press/squat, step up, monster walks and side steps, resisted bungee stepping for trunk stability, lumbar and core strength- lat, paraspinals POC: Hip hinge, disc management. If ok, retry STM to LS/glute
--- NOTE | 2023-11-30 16:24 | PT.OTN ---
Current Diagnoses Other chronic pain (11/30/23) Pain in left hip (11/30/23) Pain in right knee (11/30/23) Low back pain, unspecified (11/30/23) Other lack of coordination (11/30/23) Weakness (11/30/23) Physical Therapy Treatment Note PT-OP-A Visit Information Start: 10/05/23 09:48 Freq: Status: Active Protocol: Document 11/30/23 08:05 AB (Rec: 11/30/23 09:49 AB [id number]) Out-Patient Physical Therapy Visit Information Visit Information Visit Type Treatment Note Visit Note 12 visits Access Code [email or web address] Visit Start Time 09:04 Visit Stop Time 09:46 Visit Number 9 Number of EXPENSE ANALYST Visits 2 Evaluation Information Evaluation Date 10/07/23 Precautions Precautions Osteopenia, diabetes II, fall risk, blood pressure PT-OP-B Current Condition Start: 10/05/23 09:48 Freq: Status: Active Protocol: Document 10/07/23 07:33 NM (Rec: 10/07/23 07:34 NM [id number]) Current Condition History of Current Condition Onset Date chronic, but recent episode began in July Current Complaints pain, mobility History of Current Condition Pt presents with low back, hip , and knee pain. She reports that she is doing better compared to visit with doctor 3 weeks ago. She also reports varicose veins BLE, had them stripped previously. She reports B knee pain, L hip, B low back pain (midline pain). She has osteoporosis in her low back or neck. Pt reports no fractures except in her fingers. She reports that she does a lot of gardening and heavy lifting, reports that her back began to hurt in July. States back pain is chronic, occurs off/on; she injections in the past, which were helpful. She has had imaging of lumbar, knees, and back. She reports L hip pain and back pain with rolling over in bed; states has to pull herself over. Pt also reports L hip pain when lying down ( side or back). She has back pain with ambulation, sitting, standing. States she has given up walking, especially her dog, around early 2023. Pt has impairments in ambulation (uneven ground especially). She had a fall 2 weeks ago, this is most recent fall (has had a few several years ago)- was wearing clogged, tripped on spar finisher hose), threw herself the other way, fell on her R side onto a retaining wall and rolled down hill. 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 04/06 back pain right side start of session. PT-OP-E Functional Tests Start: 10/05/23 09:48 Freq: Status: Active Protocol: Document 10/07/23 07:33 NM (Rec: 10/07/23 13:44 NM [id number]) Functional Tests Other Forward Trunk Flexion Test Name of Test measured finger tip to floor Score 8 Comment reports symptom reproduction in low back PT-OP-F Manual Assessment Start: 10/05/23 09:48 Freq: Status: Active Protocol: Document 10/07/23 07:33 NM (Rec: 10/07/23 13:44 NM [id number]) Manual Assessments Soft Tissue Assessment Soft Tissue Mobility Assessment Increased tenderness and tone of glutes/piriformis and hamstrings. Limitations in L hamstring length and B heel cord length, in addition to increased hip flexor tightness . Neural tension in LLE Joint Mobility Assessment Joint Mobility Assessment Hypermobility of lumbar spine, especially lower lumbar spine with P-A springing of spinous processes. Hypomobility of SIJ, B hips, L knee PT-OP-G Mobility & Gait Start: 10/05/23 09:48 Freq: Status: Active Protocol: Document 10/07/23 07:33 NM (Rec: 10/07/23 13:44 NM [id number]) OP Gait Assessment Gait Gait Assistance Required: Independent Distance (Feet) 150 Gait Deviations General Gait Pattern Antalgic,Flexed Trunk,Lateral Trunk Lean Factors Limiting Gait Function Factors Limiting Gait Function Decreased Activity Tolerance, Decreased Strength,Limited Range of Motion,Pain Comments Gait Comments Very stiff trunk with ambulation PT-OP-J Posture/Palpation/Skin Start: 10/05/23 09:48 Freq: Status: Active Protocol: Document 10/07/23 07:33 NM (Rec: 10/07/23 13:44 NM [id number]) Posture Evaluation Position Standing Head/C-Spine Posture Forward Head L-Spine Posture Increased Lordosis Pelvis Posture Anteriorly Tilted Hip Posture (L) Externally Rotated,(R) Externally Rotated Knee Posture (L) Genu Valgus,(R) Genu Valgus Patellar Posture (L) Superior,(R) Superior Palpation Assessment Location lumbar spine Palpation Details Tenderness along lumbar spine especially L4-L5, PSIS/SIJ No tenderness along paraspinals but does have tenderness of L glute/ piriformis, none at proximal hamstring PT-OP-K Range of Motion Start: 10/05/23 09:48 Freq: Status: Active Protocol: Document 11/09/23 09:06 NM (Rec: 11/09/23 09:45 NM [id number]) Lumbar Spine Range of Motion Lumbar Spine Active Percentage Flexion 90 Extension 100 Rotation Left 100 Rotation Right 75 Lateral Flexion Left 100 Lateral Flexion Right 100 Comments Pain with flex, R LF with return 11/09/23: 100% for all except flexion 90%, pain free for all PT-OP-L Special Tests Start: 10/05/23 09:48 Freq: Status: Active Protocol: Document 10/07/23 07:33 NM (Rec: 10/07/23 13:44 NM [id number]) Special Tests Lumbar Spine Special Tests Straight Leg Raise Test Results + Comments L Slump Test Results + Comments L Distraction Test Results + Comments symptom reduction Castro/quadrant Test Results + Comments R PT-OP-M Strength Start: 10/05/23 09:52 Freq: Status: Active Protocol: Document 11/09/23 09:06 NM (Rec: 11/09/23 09:45 NM [id number]) Trunk Strength Trunk Manual Muscle Testing Flexion 4 Good Extension 4 Good Comments Pain with R LF, ext 11/09/23: 4+/5 for all Hip Strength Hip Manual Muscle Testing Right Flexion (L2) 4- Good- Extension (S1) 4- Good- Abduction 4- Good- Adduction 4- Good- External Rotation 4- Good- Internal Rotation 4- Good- Comments 11/09/23: 4/5 for all Left Flexion (L2) 4- Good- Extension (S1) 4- Good- Abduction 4- Good- Adduction 4- Good- External Rotation 4- Good- Internal Rotation 4- Good- Comments pain with IR and ER 11/09/23: 4/5 for all Knee Strength Knee Manual Muscle Testing Left Flexion (S2) 4- Good- Extension (L3) 4- Good- Comments 11/09/23: 4/5 for all Right Flexion (S2) 4- Good- Extension (L3) 4- Good- Comments 11/09/23: 4/5 for al PT-OP-Q Treatments Start: 10/05/23 09:48 Freq: Status: Active Protocol: Document 11/30/23 08:05 AB (Rec: 11/30/23 09:49 AB [id number]) Therapeutic Exercises Supine Exercises piriformis stretch Supine Exercise Name cross body stretch Side bilateral Reps/Minutes 60 ea Comments better tolerance darrius stretch Supine Exercise Name leg off table (HEP review) Side bilateral Reps/Minutes 60 ea Comments with AROM knee flexion figure 4 stretch Supine Exercise Name for hip mobility (HEP review) Side bilateral Reps/Minutes 60 ea Comments feedback for good stretch, L more limited; edu pain free Sitting Exercises hip abduction Sitting Exercise Name glute medius isometric HEP Side bilateral Resistance level 4 band above knees Reps/Minutes 60 Standing Exercises hip 3 way Standing Exercise Name HEP review Side bilateral Resistance level 3 band below thighs > ankles Equipment Used 2 finger support for balance Reps/Minutes X10 each direction each LE Manual Therapy Treatment Soft Tissue Mobilization B hip flex at groin Mobilization Type Cross-Friction,Rolling Intensity/Depth Moderate Body Position Hooklying lumbar spine/glutes/HS Body Location LS paraspinals and glutes right hip flex at groin B Mobilization Type Sustained Pressure Intensity/Depth Moderate Body Position Sidelying Comments bilateral Joint Mobilizations L hip Direction inf Grade II Body Position Hooklying Reps/Duration X12X3 Manual Techniques contract relax into hip flexion Body Location left hip Body Position x2 MET for right AI left PI and pubic shotgun Reps/Duration 6 sec X 6 each PT-OP-T Assessment and Plan Start: 10/05/23 09:48 Freq: Status: Active Protocol: Document 11/30/23 08:05 AB (Rec: 11/30/23 09:49 AB [id number]) Physical Therapy Assessment Goals Four Impairment body mechanics Short Term Goal (STG) Pt will be educated on body mechanics specific to gardening, bending, lifting, and twisting in order to reduce injury risk and facilitation pt return to PLOF 11/03/23: educated on hip hinge and body mechanics at 10/18 appt 11/09/23: pt has been lifting blocks to build retaining wall , has not had back pain STG Duration 4 weeks MET Shelter Goal (LTG) Pt will be able to perform good hip hinge without compensation while lifting small resistance for at least 8/10 reps without cueing or increase in baseline pain in order to demonstrate improved activity tolerance, symptom management, and QOL LTG Duration 10 weeks Three Impairment HEP Shelter Goal (LTG) Pt will report compliance with HEP at least 3x/wk in order to maximize progression with PT and promote indepedence for transition to maintenance program upon discharge from PT LTG Duration 10 weeks Two Impairment strength Short Term Goal (STG) Pt will improve B hip and knees strength globally to at least 4/5 MMT in order to demonstrate increased strength for transfers, gait, and gardening 11/09/23: 4/5 MMT STG Duration 6 weeks Student Accounts Manager Goal (LTG) Pt will improve B hip and knees strength globally to at least 4+/5 MMT in order to demonstrate increased strength for transfers, gait, and gardening LTG Duration 10 weeks One Impairment ambulation Short Term Goal (STG) Pt will report that she is able to ambulate at least 15 minutes without increase in baseline pain in order to improve activity tolerance and progress to be able to walk her dog 11/03/23: pt reports able to ambulate 5 blocks or at least 15 minutes without increase in back pain STG Duration 6 weeks MET Student Accounts Manager Goal (LTG) Pt will report that she has no limitations in ambulation time or distance in order to be able to walk her dog at least 3x/wk 11/09/23: pt reports no limitations due to her back with ambulation LTG Duration 10 weeks MET Assessment Summary Assessment Patient reports having no back pain end of session, slightly decreased ipsilateral trunk side bend stance phase with ambulation bilateral LE's end of session, but continues to be significant gait deviations impacting Lumbar spine. Physical Therapy Plan Frequency and Duration Frequency of Treatment 1-2x/wk Duration of treatment (weeks) 10 Plan of Care Start Date 10/07/23 Plan of Care End Date 12/16/23 Next Visit Focus/Plan Next Note Type Treatment Note Next Visit Plan carries asymmetrical, deadlift w/ resistance, counter bird dog, glute/hip strength- leg press/squat, step up, monster walks and side steps, resisted bungee stepping for trunk stability, lumbar and core strength- lat, paraspinals POC: Hip hinge, disc management. If ok, retry STM to LS/glute
--- NOTE | 2023-12-07 13:31 | PT.OTN ---
Current Diagnoses Other chronic pain (12/07/23) Pain in left hip (12/07/23) Pain in right knee (12/07/23) Low back pain, unspecified (12/07/23) Other lack of coordination (12/07/23) Weakness (12/07/23) Physical Therapy Treatment Note PT-OP-A Visit Information Start: 10/05/23 09:48 Freq: Status: Active Protocol: Document 12/07/23 08:12 AB (Rec: 12/07/23 10:14 AB [id number]) Out-Patient Physical Therapy Visit Information Visit Information Visit Type Treatment Note Visit Note 12 visits Access Code [email or web address] Visit Start Time 09:04 Visit Stop Time 09:47 Visit Number 10 Number of SUSTAINABLE DESIGN CONSULTANT Visits 3 Evaluation Information Evaluation Date 10/07/23 Precautions Precautions Osteopenia, diabetes II, fall risk, blood pressure PT-OP-B Current Condition Start: 10/05/23 09:48 Freq: Status: Active Protocol: Document 10/07/23 07:33 NM (Rec: 10/07/23 07:34 NM [id number]) Current Condition History of Current Condition Onset Date chronic, but recent episode began in July Current Complaints pain, mobility History of Current Condition Pt presents with low back, hip , and knee pain. She reports that she is doing better compared to visit with doctor 3 weeks ago. She also reports varicose veins BLE, had them stripped previously. She reports B knee pain, L hip, B low back pain (midline pain). She has osteoporosis in her low back or neck. Pt reports no fractures except in her fingers. She reports that she does a lot of gardening and heavy lifting, reports that her back began to hurt in July. States back pain is chronic, occurs off/on; she injections in the past, which were helpful. She has had imaging of lumbar, knees, and back. She reports L hip pain and back pain with rolling over in bed; states has to pull herself over. Pt also reports L hip pain when lying down ( side or back). She has back pain with ambulation, sitting, standing. States she has given up walking, especially her dog, around early 2023. Pt has impairments in ambulation (uneven ground especially). She had a fall 2 weeks ago, this is most recent fall (has had a few several years ago)- was wearing clogged, tripped on vat tender hose), threw herself the other way, fell on her R side onto a retaining wall and rolled down hill. 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 Patient reports she had trouble turning in bed last night. PT-OP-E Functional Tests Start: 10/05/23 09:48 Freq: Status: Active Protocol: Document 10/07/23 07:33 NM (Rec: 10/07/23 13:44 NM [id number]) Functional Tests Other Forward Trunk Flexion Test Name of Test measured finger tip to floor Score 8 Comment reports symptom reproduction in low back PT-OP-F Manual Assessment Start: 10/05/23 09:48 Freq: Status: Active Protocol: Document 10/07/23 07:33 NM (Rec: 10/07/23 13:44 NM [id number]) Manual Assessments Soft Tissue Assessment Soft Tissue Mobility Assessment Increased tenderness and tone of glutes/piriformis and hamstrings. Limitations in L hamstring length and B heel cord length, in addition to increased hip flexor tightness . Neural tension in LLE Joint Mobility Assessment Joint Mobility Assessment Hypermobility of lumbar spine, especially lower lumbar spine with P-A springing of spinous processes. Hypomobility of SIJ, B hips, L knee PT-OP-G Mobility & Gait Start: 10/05/23 09:48 Freq: Status: Active Protocol: Document 10/07/23 07:33 NM (Rec: 10/07/23 13:44 NM [id number]) OP Gait Assessment Gait Gait Assistance Required: Independent Distance (Feet) 150 Gait Deviations General Gait Pattern Antalgic,Flexed Trunk,Lateral Trunk Lean Factors Limiting Gait Function Factors Limiting Gait Function Decreased Activity Tolerance, Decreased Strength,Limited Range of Motion,Pain Comments Gait Comments Very stiff trunk with ambulation PT-OP-J Posture/Palpation/Skin Start: 10/05/23 09:48 Freq: Status: Active Protocol: Document 10/07/23 07:33 NM (Rec: 10/07/23 13:44 NM [id number]) Posture Evaluation Position Standing Head/C-Spine Posture Forward Head L-Spine Posture Increased Lordosis Pelvis Posture Anteriorly Tilted Hip Posture (L) Externally Rotated,(R) Externally Rotated Knee Posture (L) Genu Valgus,(R) Genu Valgus Patellar Posture (L) Superior,(R) Superior Palpation Assessment Location lumbar spine Palpation Details Tenderness along lumbar spine especially L4-L5, PSIS/SIJ No tenderness along paraspinals but does have tenderness of L glute/ piriformis, none at proximal hamstring PT-OP-K Range of Motion Start: 10/05/23 09:48 Freq: Status: Active Protocol: Document 11/09/23 09:06 NM (Rec: 11/09/23 09:45 NM [id number]) Lumbar Spine Range of Motion Lumbar Spine Active Percentage Flexion 90 Extension 100 Rotation Left 100 Rotation Right 75 Lateral Flexion Left 100 Lateral Flexion Right 100 Comments Pain with flex, R LF with return 11/09/23: 100% for all except flexion 90%, pain free for all PT-OP-L Special Tests Start: 10/05/23 09:48 Freq: Status: Active Protocol: Document 10/07/23 07:33 NM (Rec: 10/07/23 13:44 NM [id number]) Special Tests Lumbar Spine Special Tests Straight Leg Raise Test Results + Comments L Slump Test Results + Comments L Distraction Test Results + Comments symptom reduction Castro/quadrant Test Results + Comments R PT-OP-M Strength Start: 10/05/23 09:52 Freq: Status: Active Protocol: Document 11/09/23 09:06 NM (Rec: 11/09/23 09:45 NM [id number]) Trunk Strength Trunk Manual Muscle Testing Flexion 4 Good Extension 4 Good Comments Pain with R LF, ext 11/09/23: 4+/5 for all Hip Strength Hip Manual Muscle Testing Right Flexion (L2) 4- Good- Extension (S1) 4- Good- Abduction 4- Good- Adduction 4- Good- External Rotation 4- Good- Internal Rotation 4- Good- Comments 11/09/23: 4/5 for all Left Flexion (L2) 4- Good- Extension (S1) 4- Good- Abduction 4- Good- Adduction 4- Good- External Rotation 4- Good- Internal Rotation 4- Good- Comments pain with IR and ER 11/09/23: 4/5 for all Knee Strength Knee Manual Muscle Testing Left Flexion (S2) 4- Good- Extension (L3) 4- Good- Comments 11/09/23: 4/5 for all Right Flexion (S2) 4- Good- Extension (L3) 4- Good- Comments 11/09/23: 4/5 for al PT-OP-Q Treatments Start: 10/05/23 09:48 Freq: Status: Active Protocol: Document 12/07/23 08:12 AB (Rec: 12/07/23 10:14 AB [id number]) Therapeutic Exercises Supine Exercises darrius stretch Supine Exercise Name leg off table (HEP review) Side bilateral Reps/Minutes 60 ea Comments with AROM knee flexion Sitting Exercises hip abduction Sitting Exercise Name glute medius isometric HEP Side bilateral Resistance level 4 band above knees Reps/Minutes 60 Standing Exercises retro stepping with band Standing Exercise Name UE support Resistance level 4 band Reps/Minutes 10 feet X 4 sit to stand with band Standing Exercise Name raised seat height Side bilateral Resistance level 4 band Reps/Minutes 3X10 Comments review of self tact cues for hip hinge, monitored for pain Therapeutic Activity Therapeutic Activity supine to and from sit Name log roll left and right Comments verbal cues for log roll and to avoid scooting during roll, focus on rolling fully onto side prior to sitting upright and for timing ie LE's off mat and immediately push up into sitting. Manual Therapy Treatment Joint Mobilizations left PSIS Direction inf Grade II Body Position Prone Comments with knee flexion, hip IR and ER (LTR ) I to II for mobs, taking up slack at joint/approx L SIJ Direction post Grade II Body Position Prone Reps/Duration 2x30 Comments On body pillow for comfort, reports Feels good with mobilization for pain reduction. L post rotated Manual Techniques contract relax Type hip IR Body Location left hip Body Position Prone Reps/Duration X2 X 40 to 60 sec MET for right AI left PI and pubic shotgun Reps/Duration 6 sec X 6 each PT-OP-T Assessment and Plan Start: 10/05/23 09:48 Freq: Status: Active Protocol: Document 12/07/23 08:12 AB (Rec: 12/07/23 10:14 AB [id number]) Physical Therapy Assessment Goals Four Impairment body mechanics Short Term Goal (STG) Pt will be educated on body mechanics specific to gardening, bending, lifting, and twisting in order to reduce injury risk and facilitation pt return to PLOF 11/03/23: educated on hip hinge and body mechanics at 10/18 appt 11/09/23: pt has been lifting blocks to build retaining wall , has not had back pain STG Duration 4 weeks MET Half-Way Goal (LTG) Pt will be able to perform good hip hinge without compensation while lifting small resistance for at least 8/10 reps without cueing or increase in baseline pain in order to demonstrate improved activity tolerance, symptom management, and QOL LTG Duration 10 weeks Three Impairment HEP Half-Way Goal (LTG) Pt will report compliance with HEP at least 3x/wk in order to maximize progression with PT and promote indepedence for transition to maintenance program upon discharge from PT LTG Duration 10 weeks Two Impairment strength Short Term Goal (STG) Pt will improve B hip and knees strength globally to at least 4/5 MMT in order to demonstrate increased strength for transfers, gait, and gardening 11/09/23: 4/5 MMT STG Duration 6 weeks Half-Way Goal (LTG) Pt will improve B hip and knees strength globally to at least 4+/5 MMT in order to demonstrate increased strength for transfers, gait, and gardening LTG Duration 10 weeks One Impairment ambulation Short Term Goal (STG) Pt will report that she is able to ambulate at least 15 minutes without increase in baseline pain in order to improve activity tolerance and progress to be able to walk her dog 11/03/23: pt reports able to ambulate 5 blocks or at least 15 minutes without increase in back pain STG Duration 6 weeks MET Half-Way Goal (LTG) Pt will report that she has no limitations in ambulation time or distance in order to be able to walk her dog at least 3x/wk 11/09/23: pt reports no limitations due to her back with ambulation LTG Duration 10 weeks MET Assessment Summary Assessment Patient reports having no back pain end of session. Poor carryover with supine to sit, required repeated verbal cues throughout session post training. Physical Therapy Plan Frequency and Duration Frequency of Treatment 1-2x/wk Duration of treatment (weeks) 10 Plan of Care Start Date 10/07/23 Plan of Care End Date 12/16/23 Next Visit Focus/Plan Next Note Type Progress Note Next Visit Plan POC needs to be extended if patient is to keep scheduled appointments. Assess log roll. carries asymmetrical, deadlift w/ resistance, counter bird dog, glute/hip strength- leg press/squat, step up, monster walks and side steps, resisted bungee stepping for trunk stability, lumbar and core strength- lat, paraspinals POC: Hip hinge, disc management. If ok, retry STM to LS/glute
--- NOTE | 2023-12-14 12:48 | PT.OTN ---
Current Diagnoses Other chronic pain (12/14/23) Pain in left hip (12/14/23) Pain in right knee (12/14/23) Low back pain, unspecified (12/14/23) Other lack of coordination (12/14/23) Weakness (12/14/23) Physical Therapy Treatment Note PT-OP-A Visit Information Start: 10/05/23 09:48 Freq: Status: Active Protocol: Document 12/14/23 07:47 NM (Rec: 12/14/23 07:54 NM [id number]) Out-Patient Physical Therapy Visit Information Visit Information Visit Type Progress Note Visit Note 12 visits Visit Start Time 09:02 Visit Stop Time 09:42 Visit Number 11 Number of SOCIAL DIRECTOR Visits 0 Evaluation Information Evaluation Date 10/07/23 Precautions Precautions Osteopenia, diabetes II, fall risk, blood pressure PT-OP-B Current Condition Start: 10/05/23 09:48 Freq: Status: Active Protocol: Document 10/07/23 07:33 NM (Rec: 10/07/23 07:34 NM [id number]) Current Condition History of Current Condition Onset Date chronic, but recent episode began in July Current Complaints pain, mobility History of Current Condition Pt presents with low back, hip , and knee pain. She reports that she is doing better compared to visit with doctor 3 weeks ago. She also reports varicose veins BLE, had them stripped previously. She reports B knee pain, L hip, B low back pain (midline pain). She has osteoporosis in her low back or neck. Pt reports no fractures except in her fingers. She reports that she does a lot of gardening and heavy lifting, reports that her back began to hurt in July. States back pain is chronic, occurs off/on; she injections in the past, which were helpful. She has had imaging of lumbar, knees, and back. She reports L hip pain and back pain with rolling over in bed; states has to pull herself over. Pt also reports L hip pain when lying down ( side or back). She has back pain with ambulation, sitting, standing. States she has given up walking, especially her dog, around early 2023. Pt has impairments in ambulation (uneven ground especially). She had a fall 2 weeks ago, this is most recent fall (has had a few several years ago)- was wearing clogged, tripped on environmental consultant hose), threw herself the other way, fell on her R side onto a retaining wall and rolled down hill. 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 She reports that she still has difficulty with getting/out, which made her feel like she had a flare up. She reports that sitting in the recliner, which causes a little discomfort. Pt reports that she only gets intermittent flare ups, states 1-2/10 overall in her back. Pt in agreement about discharge today. Patient Reported Progress Improving PT-OP-E Functional Tests Start: 10/05/23 09:48 Freq: Status: Active Protocol: Document 10/07/23 07:33 NM (Rec: 10/07/23 13:44 NM [id number]) Functional Tests Other Forward Trunk Flexion Test Name of Test measured finger tip to floor Score 8 Comment reports symptom reproduction in low back PT-OP-F Manual Assessment Start: 10/05/23 09:48 Freq: Status: Active Protocol: Document 10/07/23 07:33 NM (Rec: 10/07/23 13:44 NM [id number]) Manual Assessments Soft Tissue Assessment Soft Tissue Mobility Assessment Increased tenderness and tone of glutes/piriformis and hamstrings. Limitations in L hamstring length and B heel cord length, in addition to increased hip flexor tightness . Neural tension in LLE Joint Mobility Assessment Joint Mobility Assessment Hypermobility of lumbar spine, especially lower lumbar spine with P-A springing of spinous processes. Hypomobility of SIJ, B hips, L knee PT-OP-G Mobility & Gait Start: 10/05/23 09:48 Freq: Status: Active Protocol: Document 10/07/23 07:33 NM (Rec: 10/07/23 13:44 NM [id number]) OP Gait Assessment Gait Gait Assistance Required: Independent Distance (Feet) 150 Gait Deviations General Gait Pattern Antalgic,Flexed Trunk,Lateral Trunk Lean Factors Limiting Gait Function Factors Limiting Gait Function Decreased Activity Tolerance, Decreased Strength,Limited Range of Motion,Pain Comments Gait Comments Very stiff trunk with ambulation PT-OP-J Posture/Palpation/Skin Start: 10/05/23 09:48 Freq: Status: Active Protocol: Document 10/07/23 07:33 NM (Rec: 10/07/23 13:44 NM [id number]) Posture Evaluation Position Standing Head/C-Spine Posture Forward Head L-Spine Posture Increased Lordosis Pelvis Posture Anteriorly Tilted Hip Posture (L) Externally Rotated,(R) Externally Rotated Knee Posture (L) Genu Valgus,(R) Genu Valgus Patellar Posture (L) Superior,(R) Superior Palpation Assessment Location lumbar spine Palpation Details Tenderness along lumbar spine especially L4-L5, PSIS/SIJ No tenderness along paraspinals but does have tenderness of L glute/ piriformis, none at proximal hamstring PT-OP-K Range of Motion Start: 10/05/23 09:48 Freq: Status: Active Protocol: Document 12/14/23 07:47 NM (Rec: 12/14/23 07:54 NM [id number]) Lumbar Spine Range of Motion Lumbar Spine Active Percentage Flexion 90 Extension 100 Rotation Left 100 Rotation Right 100 Lateral Flexion Left 100 Lateral Flexion Right 100 Comments Pain with flex, R LF with return 11/09/23: 100% for all except flexion 90%, pain free for all 12/14/23: 5 from floor; 90% flex; pain free PT-OP-L Special Tests Start: 10/05/23 09:48 Freq: Status: Active Protocol: Document 10/07/23 07:33 NM (Rec: 10/07/23 13:44 NM [id number]) Special Tests Lumbar Spine Special Tests Straight Leg Raise Test Results + Comments L Slump Test Results + Comments L Distraction Test Results + Comments symptom reduction Castro/quadrant Test Results + Comments R PT-OP-M Strength Start: 10/05/23 09:52 Freq: Status: Active Protocol: Document 12/14/23 07:47 NM (Rec: 12/14/23 07:54 NM [id number]) Trunk Strength Trunk Manual Muscle Testing Flexion 4+ Good+ Extension 4+ Good+ Rotation Left 4+ Good+ Rotation Right 4+ Good+ Lateral Flexion Left 4+ Good+ Lateral Flexion Right 4+ Good+ Comments Pain with R LF, ext 11/09/23: 4+/5 for all 12/14/23: 4+/5 for all, pain free Hip Strength Hip Manual Muscle Testing Right Flexion (L2) 4+ Good+ Extension (S1) 4+ Good+ Abduction 4+ Good+ Adduction 4+ Good+ External Rotation 4+ Good+ Internal Rotation 4+ Good+ Comments 11/09/23: 4/5 for all 12/14/23: 4+/5 for all Left Flexion (L2) 4+ Good+ Extension (S1) 4+ Good+ Abduction 4+ Good+ Adduction 4+ Good+ External Rotation 4+ Good+ Internal Rotation 4+ Good+ Comments pain with IR and ER 11/09/23: 4/5 for all 12/14/23: 4+/5 for all Knee Strength Knee Manual Muscle Testing Left Flexion (S2) 4+ Good+ Extension (L3) 4+ Good+ Comments 11/09/23: 4/5 for all 12/14/23: 4+/5 for all Right Flexion (S2) 4+ Good+ Extension (L3) 4+ Good+ Comments 11/09/23: 4/5 for all 12/14/23: 4+/5 for all PT-OP-Q Treatments Start: 10/05/23 09:48 Freq: Status: Active Protocol: Document 12/14/23 07:47 NM (Rec: 12/14/23 07:54 NM [id number]) Therapeutic Exercises Sitting Exercises LAQ Side bilateral Resistance level 3 band Reps/Minutes 2x15 with 2 pause Standing Exercises sit to stand with band Standing Exercise Name raised seat height Side bilateral Resistance level 4 band Reps/Minutes 3X10 Comments review of self tact cues for hip hinge, monitored for pain modified bird dog Standing Exercise Name opposite arm/leg Side bilateral Reps/Minutes 10 alternating Comments cued slower hip 3 way Standing Exercise Name HEP review Side bilateral Resistance level 3 band at thighs Equipment Used hands on hips Reps/Minutes 15 ea pallof Standing Exercise Name press Side bilateral Resistance level 3 band Reps/Minutes 30 ea Comments good form Therapeutic Activity Therapeutic Activity sitting position Comments Educated and positioned via pillows on reclined plinth to simulate recliner at home. Recommended support along entire spine supine to and from sit Name log roll left and right Reps/Minutes successfully performing several reps Comments 1. log roll using stool for support with bed at appropriate ht Recommended stool for foot support when getting into bed to allow for scooting 2. bridging for bed positioning Cued not to scoot in sidelying , rather do bridging to reposition with lifting of feet/head to reposition as needed hip hinge Comments 1. crate pick ups from floor, 10 2. crate pick ups from floor w / wt 8# db, 10 3. crate brick picker and carries x 5 ft w/ turn to side and place on waist level table, 5 ea direction Demos good control, keeping resistance close to body; good hip hinge. Cueing only for squat prn PT-OP-T Assessment and Plan Start: 10/05/23 09:48 Freq: Status: Active Protocol: Document 12/14/23 07:47 NM (Rec: 12/14/23 07:54 NM [id number]) Physical Therapy Assessment Goals Four Impairment body mechanics Short Term Goal (STG) Pt will be educated on body mechanics specific to gardening, bending, lifting, and twisting in order to reduce injury risk and facilitation pt return to PLOF 11/03/23: educated on hip hinge and body mechanics at 10/18 appt 11/09/23: pt has been lifting blocks to build retaining wall , has not had back pain STG Duration 4 weeks MET Long-Term Goal (LTG) Pt will be able to perform good hip hinge without compensation while lifting small resistance for at least 8/10 reps without cueing or increase in baseline pain in order to demonstrate improved activity tolerance, symptom management, and QOL 12/14/23: able to perform crate pick ups and carries with lifts from floor for several reps with good form and no pain LTG Duration 10 weeks MET Three Impairment HEP Long-Term Goal (LTG) Pt will report compliance with HEP at least 3x/wk in order to maximize progression with PT and promote indepedence for transition to maintenance program upon discharge from PT 12/14/23: 3-4x/wk reported, no discomfort or difficulty LTG Duration 10 weeks MET Two Impairment strength Short Term Goal (STG) Pt will improve B hip and knees strength globally to at least 4/5 MMT in order to demonstrate increased strength for transfers, gait, and gardening 11/09/23: 4/5 MMT STG Duration 6 weeks [employer] Hand Goal (LTG) Pt will improve B hip and knees strength globally to at least 4+/5 MMT in order to demonstrate increased strength for transfers, gait, and gardening 12/14/23: 4+/5 MMT; pain free LTG Duration 10 weeks MET One Impairment ambulation Short Term Goal (STG) Pt will report that she is able to ambulate at least 15 minutes without increase in baseline pain in order to improve activity tolerance and progress to be able to walk her dog 11/03/23: pt reports able to ambulate 5 blocks or at least 15 minutes without increase in back pain STG Duration 6 weeks MET [employer] Hand Goal (LTG) Pt will report that she has no limitations in ambulation time or distance in order to be able to walk her dog at least 3x/wk 11/09/23: pt reports no limitations due to her back with ambulation LTG Duration 10 weeks MET Progress Towards Goals Progress Towards Goals Goals Met Assessment Summary Assessment Pt tolerated session well. PT and pt discussed discharge today as pt plan is ending and pt has met all goals; established maintenance program. Session emphasis on body mechanics review and posture during sitting/ transfer. PT recommended placement of stool next to bed to assist in transfers as pt' s bed is tall, which improved pt form and control with transfer. Pt demonstrates good hip hinge and able to progress with resistance for lifts/carries/deadlifts from floor to elevated height without pain or discomfort. Continued with global hip and trunk strengthening with emphasis on control and form. Pt performed well without increased pain and with minimal cues. Physical Therapy Plan Frequency and Duration Frequency of Treatment 1-2x/wk Duration of treatment (weeks) 10 Plan of Care Start Date 10/07/23 Plan of Care End Date 12/16/23 Therapeutic Interventions Therapeutic Interventions Balance Training,Gait Training ,Home Exercise Program,Joint Mobilizations,Manual Therapy, Neuromuscular Re-education, Orthotic/Prosthetic Management ,Patient/Caregiver Education, Self-Care/Home Management, Sensory Integration,Soft Tissue Mobilization,Taping, Therapeutic Activities, Therapeutic Exercises Modalities Cold Pack/Ice Massage,Electric Stimulation,Hot Packs, Ultrasound Discharge Physical Therapy Discharge Reasons Goals Met Next Visit Focus/Plan Next Note Type Treatment Note Next Visit Plan POC needs to be extended if patient is to keep scheduled appointments. Assess log roll. carries asymmetrical, deadlift w/ resistance, counter bird dog, glute/hip strength- leg press/squat, step up, monster walks and side steps, resisted bungee stepping for trunk stability, lumbar and core strength- lat, paraspinals POC: Hip hinge, disc management. If ok, retry STM to LS/glute
== END 2023-12-20 12:53 | disposition home or self-care (01) ==
LOC: PHYS 09:00
PROVIDERS: Family Provider Internal Medicine; PCP Internal Medicine; Referring Provider Internal Medicine; Visit Provider Internal Medicine
DX: M54.50 Low back pain, unspecified (principal); G89.29 Other chronic pain; M25.552 Pain in left hip; M25.561 Pain in right knee; R53.1 Weakness; R27.8 Other lack of coordination
CPT/HCPCS: 97110; 97140; 97162; 97530

== ENCOUNTER → 2024-03-30 09:47 | Outpatient (CLI) | payer MEDICARE, SELFPAY | PROVIDERS: Family Provider Internal Medicine; PCP Internal Medicine; Visit Provider Nurse Practitioner Family | DX: R30.0 Dysuria (principal) | CPT/HCPCS: 87086 ==

== ENCOUNTER 2024-06-07 09:43 | Emergency (ER) | payer MEDICARE, SELFPAY ==
[2024-06-07 09:56] VITALS: BP 147/65; PULSE 73; RESP 14; TEMP 36.6; O2SAT 96; BMI 37.1
--- NOTE | 2024-06-07 10:00 | EKG_ITS ---
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
--- NOTE | 2024-06-07 11:30 | ED_ITS ---
HPI - Abdominal Pain <Juliette Ray PA-C - Last Filed: 06/07/24 15:16> General Chief Complaint: Abdominal Pain Stated Complaint: abd pain, vomiting/ diarrhea Time Seen by Provider: 06/07/24 11:02 Source: patient Mode of arrival: Ambulatory History of Present Illness HPI narrative: Ms. Ho is a very pleasant 69-year-old female with a past medical history of type 2 diabetes on insulin/mounjaro/metformin, GERD, hyperlipidemia, Prior cholecystectomy who presents to the emergency department for epigastric and right upper quadrant abdominal pain, vomiting and diarrhea x6 days. Patient denies any known sick contacts, recent antibiotics or abnormal food exposures. She has been having intermittent pain, nausea, vomiting and diarrhea. Occasional acid reflux.Reports that today she did have a somewhat firm brown bowel movement. Symptoms are exacerbated by eating solid foods and improved with not eating or having liquids only. States that her pain feels very similar to when she had gallbladder problems many years ago, and her PCP was concerned for possible stone in the bile duct or other abnormality. States that at this current time she has not on lots of pain and does not want pain or nausea medication. Denies dysuria, hematuria, flank pain, chest pain, shortness of breath, fevers, chills, melena, hematochezia, hematemesis, flu-like symptoms. Surgical history includes hysterectomy, tonsillectomy, cholecystectomy. Social history includes no smoking drinking or drugs. Related Data Home Medications Medication Instructions Recorded Confirmed albuterol sulfate 90 mcg/actuation 2 puff inhalation Q4-6H PRN 07/13/18 03/30/24 aerosol inhaler (Proventil HFA) aspirin 81 mg tablet,delayed 81 mg PO DAILY 07/13/18 03/30/24 release (Adult Low Dose Aspirin) bupropion HCl 150 mg 24 hr tablet, 150 mg PO QAM 07/13/18 03/30/24 extended release cyanocobalamin (vitamin B-12) 500 1,000 mcg PO DAILY 07/13/18 03/30/24 mcg tablet fluticasone propionate 50 1 spray intranasal DAILY 07/13/18 03/30/24 mcg/actuation nasal spray,suspension (Flonase Allergy Relief) insulin aspart U-100 [Novolog SUBCUT 07/13/18 03/30/24 U-100 Insulin aspart] insulin glargine 100 unit/mL (3 20 - 22 unit SUBCUT .HS 07/13/18 03/30/24 mL) subcutaneous pen (Basaglar KwikPen U-100 Insulin) metformin 500 mg tablet 500 mg PO QID 07/13/18 03/30/24 olopatadine intranasal 07/13/18 03/30/24 olopatadine 0.1 % eye drops EYE-BOTH 07/13/18 03/30/24 (Patanol) pioglitazone 30 mg tablet 30 mg PO DAILY 07/13/18 03/30/24 sertraline 100 mg tablet 150 mg PO DAILY 07/13/18 03/30/24 cholecalciferol (vitamin D3) 25 1,000 unit PO DAILY 01/29/19 03/30/24 mcg (1,000 unit) capsule atorvastatin 10 mg tablet mg PO DAILY 01/21/20 03/30/24 Respironics Dreamstation CPAP #1 ea 12/02/21 03/30/24 psyllium [Metamucil (sugar)] PO PRN 12/02/21 03/30/24 blood-glucose meter,continuous #1 ea 03/30/24 03/30/24 (Dexcom G7 Color Worker) blood-glucose sensor (Dexcom G7 #1 ea 03/30/24 03/30/24 Sensor device) Previous Rx's Medication Instructions Recorded ibuprofen 800 mg tablet 800 mg PO Q8H PRN pain #30 tabs 03/05/22 phenazopyridine 100 mg tablet 100 mg PO TID PRN pain 6 doses #6 01/22/23 (Pyridium) tabs ondansetron 4 mg disintegrating 4 mg PO Q8H PRN nausea and 06/07/24 tablet vomiting #20 tabs Allergies Allergy/AdvReac Type Severity Reaction Status Date / Time Penicillins Allergy Rash Verified 06/07/24 09:56 Sulfa (Sulfonamide Allergy Rash Verified 06/07/24 09:56 Antibiotics) Review of Systems <Juliette Ray PA-C - Last Filed: 06/07/24 15:16> Review of Systems ROS Unobtainable: All systems reviewed & are unremarkable except as noted in HPI and below Patient History <Juliette Ray PA-C - Last Filed: 06/07/24 15:16> Medical History Asthma Cervical radiculopathy at C6 Chronic seasonal allergic rhinitis Depression Facet arthropathy, lumbosacral GERD (gastroesophageal reflux disease) Herniated nucleus pulposus, C5-6 left Hyperlipidemia Morbid obesity with body mass index (BMI) of 40.0 to 49.9 Obstructive sleep apnea of adult Snoring Spondylolisthesis at L4-L5 level Type 2 diabetes mellitus Surgical History History of cholecystectomy History of hysterectomy History of tonsillectomy Family History Father Heart disease Diabetes mellitus Mother Diabetes mellitus Family/Other Diabetes mellitus Heart disease Social History (Updated 04/26/19 @ 14:49 by Steff Weaver) marital status: (to Bharath) details: lives in [place] household members: spouse lives independently: Yes caregiver/support person: No (she is now her 's caregiver) housing: house pets and animals: Yes (dog) occupational status: previously employed (retired 02/2020) Smoking Status: Never smoker alcohol intake: never eating out: 1-3 times/week Type(s) of exercise: walking and advised to exercise at least 150 min/week (moderate intensity aerobic) additional social history: Edith called [facility] as we discussed at last visit. Although it is not needed at this moment, she mentions feeling more secure knowing there is help for us when and if we need it. Smoking Status: Never smoker Exam <Juliette Ray PA-C - Last Filed: 06/07/24 15:16> Narrative Exam Narrative: GENERAL: 69 year old patient appears stated age. Well-developed patient, in no acute distress. HEAD: Atraumatic. Normocephalic. NECK: Trachea midline. Cervical ROM intact. CARDIOVASCULAR: Regular rate and rhythm. RESPIRATORY: Nonlabored respirations. Speaking in clear, full sentences. Clear to auscultation. Breath sounds equal bilaterally. No wheezes, rales, or rhonchi. GASTROINTESTINAL: Abdomen soft, Nondistended, normal bowel sounds. There is mild tenderness with deep palpation of the epigastric and right upper quadrant region, negative Moise's sign. No rebound or guarding. EXTREMITIES: No edema or joint tenderness. BACK: Nontender without deformity or crepitance. No flank tenderness. NEURO: AOx3. Clear speech. Moves all 4 extremities appropriately. SKIN: No rash or erythema of visible areas Initial Vital Signs Initial Vital Signs: Vital Signs Temperature 97.8 F 06/07/24 09:56 Pulse Rate 73 06/07/24 09:56 Respiratory Rate 14 06/07/24 09:56 Blood Pressure 147/65 H 06/07/24 09:56 Pulse Oximetry 96 06/07/24 09:56 Oxygen Delivery Method Room Air 06/07/24 09:56 <Felicia Rodriguez MD - Last Filed: 06/07/24 19:56> Initial Vital Signs Initial Vital Signs: Vital Signs Temperature 97.8 F 06/07/24 09:56 Pulse Rate 73 06/07/24 09:56 Respiratory Rate 14 06/07/24 09:56 Blood Pressure 147/65 H 06/07/24 09:56 Pulse Oximetry 96 06/07/24 09:56 Oxygen Delivery Method Room Air 06/07/24 09:56 Course <Juliette Ray PA-C - Last Filed: 06/07/24 15:16> Orders Ordered: ED Orders 06/07/24 11:26 Complete Blood Count AUTO DIFF Stat Comprehensive Metabolic Panel Stat Lipase Stat Troponin & CK Cardiac Panel Stat 06/07/24 11:41 CT abdomen pelvis w con Stat XR chest 1V Stat 06/07/24 11:46 Urine Microscopic Stat Discontinued Medications Sodium Chloride (Normal Saline 0.9%) 1,000 mls @ 1,000 mls/hr IV BOLUS ONE Stop: 06/07/24 13:24 Last Infusion: 06/07/24 13:32 Dose: Infused Documented By: Admin: 06/07/24 12:35 Dose: 1,000 mls/hr Documented By: ANIBAL Ondansetron HCl (Ondansetron 4 Mg/2 Ml Inj) 4 mg IV NOW PRN PRN Reason: Nausea And Vomiting Ondansetron HCl (Ondansetron 4 Mg Odt) 4 mg PO NOW PRN PRN Reason: Nausea And Vomiting Vital Signs Vital signs: Vital Signs - 8 hr 06/07/24 13:30 06/07/24 14:16 Pulse Rate 78 74 Respiratory Rate 14 16 Blood Pressure 147/65 H 153/67 H Pulse Oximetry 96 97 Oxygen Delivery Method Room Air <Felicia Rodriguez MD - Last Filed: 06/07/24 19:56> Orders Ordered: ED Orders 06/07/24 11:26 Complete Blood Count AUTO DIFF Stat Comprehensive Metabolic Panel Stat Lipase Stat Troponin & CK Cardiac Panel Stat 06/07/24 11:41 CT abdomen pelvis w con Stat XR chest 1V Stat 06/07/24 11:46 Urine Microscopic Stat Discontinued Medications Sodium Chloride (Normal Saline 0.9%) 1,000 mls @ 1,000 mls/hr IV BOLUS ONE Stop: 06/07/24 13:24 Last Infusion: 06/07/24 13:32 Dose: Infused Documented By: Admin: 06/07/24 12:35 Dose: 1,000 mls/hr Documented By: ANIBAL Ondansetron HCl (Ondansetron 4 Mg/2 Ml Inj) 4 mg IV NOW PRN PRN Reason: Nausea And Vomiting Ondansetron HCl (Ondansetron 4 Mg Odt) 4 mg PO NOW PRN PRN Reason: Nausea And Vomiting Vital Signs Vital signs: Vital Signs - 8 hr 06/07/24 13:30 06/07/24 14:16 Pulse Rate 78 74 Respiratory Rate 14 16 Blood Pressure 147/65 H 153/67 H Pulse Oximetry 96 97 Oxygen Delivery Method Room Air MDM - Abdominal Pain <Juliette Ray PA-C - Last Filed: 06/07/24 15:16> Medical Records Attestation: I reviewed the patient's medical records. Lab Data 06/07/24 11:26 06/07/24 11:26 Labs: Lab Results 06/07/24 06/07/24 Range/Units 11:26 11:46 WBC 8.7 (4.5-11.0) X10^3/uL RBC 4.46 (4.0-5.2) X10^6/uL Hgb 13.1 (12.0-16.0) g/dL Hct 40.5 (36-46) % MCV 90.7 (80-100) fL MCH 29.4 (26-34) PG MCHC 32.4 (30-36) % RDW 13.3 (11.6-14.8) % Plt Count 315 (150-400) X10^3/uL Neut % (Auto) 65.0 (50-75) % Lymph % (Auto) 24.8 L (25-40) % [place] % (Auto) 7.6 (3-14) % Eos % (Auto) 1.8 L (2-4) % Baso % (Auto) 0.8 (0-2) % Neut # (Auto) 5600 (3774-7482) /uL Lymph # (Auto) 2200 (3465-4937) /uL [place] # (Auto) 700 (0-900) /uL Eos # (Auto) 200 (0-450) /uL Baso # (Auto) 100 (0-100) /uL Sodium 139 (137-145) mmol/L Potassium 4.2 (3.4-5.1) mmol/L Chloride 105 (98-107) mmol/L Carbon Dioxide 25 (22-32) mmol/L BUN 16 (7-17) mg/dL Creatinine 0.75 (0.52-1.04) mg/dL Estimated GFR > 60 (>60) mL/min BUN/Creatinine Ratio 21.3 (6-22) Glucose 102 (80-110) mg/dL Calcium 10.5 H (8.4-10.2) mg/dL Total Bilirubin 0.6 (0.2-1.3) mg/dL AST 22 (14-36) IU/L ALT 17 (<35) IU/L Alkaline Phosphatase 77 (38-126) U/L Total Creatine Kinase 34 (30-135) U/L Troponin I < 0.012 (0.01-0.034) ng/mL Total Protein 7.1 (6.3-8.2) g/dL Albumin 4.4 (3.5-5.0) g/dL Globulin 2.7 (1.7-4.1) g/dL Albumin/Globulin Ratio 1.6 (1.0-2.8) Lipase 96 (23-300) U/L Urine RBC None seen (0-5/HPF) Urine WBC 0-1/hpf (0-5/HPF) Ur Squamous Epith Cells 1-5 /hpf (0-5/HPF) Ur Renal Epithelial Cell 1-5/hpf H (0-1/HPF) Calcium Oxalate Crystal Many H Amorphous Sediment 2+ Urine Bacteria None seen (None) Ur Culture Indicated? Cult not indicated Vol Urine Centrifuged 10ml (spun) Point of care testing: Urine Dip Bedside Urine Glucose Negative Bedside Urine Bilirubin - Negative Bedside Urine Ketone - Negative Urine Specific [place] 1.020 Bedside Urine Occult Blood - Negative Bedside Urine pH 5.5 Bedside Urine Protein - Negative Bedside Urine Urobilinogen - Negative Bedside Urine Nitrite - Negative Bedside Urine Leukocytes - Negative Esterase Imaging Data Chest x-ray: Radiologist's Impression: PROCEDURE: XR CHEST 1V INDICATIONS: epigastric abd pain TECHNIQUE: One view of the chest was acquired. COMPARISON: None. FINDINGS: Surgical changes and devices: None. Lungs and pleura: Lungs are clear. No pleural effusions or pneumothorax. Mediastinum: Mediastinal contours appear normal. Heart size is enlarged. Bones and chest wall: No suspicious bony lesions. Overlying soft tissues appear unremarkable. IMPRESSION: no acute cardiopulmonary pathology. CT scan - abdomen/pelvis: Radiologist's Impression: PROCEDURE: CT ABDOMEN PELVIS W CON INDICATIONS: RUQ/epigastric abd pain; N/V/D; hx cholecystectomy TECHNIQUE: After the administration of intravenous contrast, axial sections acquired from the lung bases to the pubic symphysis. Coronal and sagittal reformats were performed. For radiation dose reduction, the following was used: automated exposure control, adjustment of mA and/or kV according to patient size. COMPARISON: None. FINDINGS: Image quality: Diagnostic. Lower Chest: No significant findings. ABDOMEN: Liver: No solid mass. Gallbladder: Gallbladder is surgically absent. Biliary ducts: No biliary dilation. Pancreas: No ductal dilation. Spleen: Size is within normal limits. Adrenal Glands: No adrenal nodules. Kidneys and Ureters: No hydronephrosis. No solid mass. No complex renal cystic lesion which requires follow up. Mild bilateral perinephric fat stranding is seen. No perinephric fluid collection. Stomach and Bowel: There is no bowel obstruction. No gastric or small bowel wall thickening. A can not ext is not definitively seen. No focal inflammatory changes are seen in right lower quadrant abdomen. No colonic wall thickening. No abscess collection. Peritoneum: No abnormal intraperitoneal fluid. No free air. Ventral Wall: No significant ventral hernia. Abdominal Nodes: No retroperitoneal or mesenteric adenopathy by size criteria. Vessels: Aorta and inferior vena cava are normal in size. PELVIS: Pelvic Organs: There is prior hysterectomy. Bladder: There is mild bladder wall thickening, no discrete bladder wall mass. Pelvic Nodes: No enlarged lymph nodes. Miscellaneous: No inguinal hernias are seen. Surgical clips are seen in bilateral inguinal region. Bones: No aggressive osseous abnormality. IMPRESSION: 1. Mild bladder wall thickening and mild bilateral perinephric fat stranding concerning for pyelonephritis and cystitis suggest clinical correlation. No obstructing renal stones or hydronephrosis. 2. No bowel obstruction or abnormal bowel wall thickening. No evidence of acute appendicitis. No free fluid or free air. 3. Prior cholecystectomy and hysterectomy. No abnormality is seen in gallbladder fossa or vaginal cuff region. [facility] Narrative Medical decision making narrative: 69-year-old female with a past medical history of type 2 diabetes on insulin/mounjaro/metformin, GERD, hyperlipidemia, Prior cholecystectomy who presents to the emergency department for epigastric and right upper quadrant abdominal pain, vomiting and diarrhea x6 days. Differential diagnosis includes but is not limited to gallstone pancreatitis, pancreatitis, peptic ulcer disease, gastroenteritis, colitis, diverticulitis, bile duct obstruction, UTI, pyelonephritis, etc. On exam the patient is in no acute distress, nontoxic appearing, vital signs age-appropriate. She is mild tenderness to palpation of the epigastric and right upper quadrant region of the abdomen, has been having vomiting and diarrhea for the last few days. She does decline any medications at this time. We will proceed with a abdominal lab work including EKG troponin and chest x-ray given epigastric abdominal pain, and a CT abdomen pelvis with IV contrast to further evaluate intra-abdominal pathology. Labs reveal normal WBC count 8.7, hemoglobin 13.1, hematocrit 40.5. Platelets 315. normal sodium 139, potassium 4.2, BUN 16 and creatinine 0.75. Glucose 102. Her calcium is elevated at 10.5. Patient states she does have a history of elevated calcium. Normal liver enzymes, troponin is negative, lipase is normal at 96. Chest x-ray reveals no acute cardiopulmonary pathology. Abdomen and pelvis CT reveals mild bladder wall thickening and mild bilateral perinephric fat stranding concerning for pyelonephritis and cystitis suggest clinical correlation. No obstructing renal stones or hydronephrosis. There is no bowel obstruction or abnormal bowel wall thickening. No evidence of acute appendicitis. No free fluid or free air. There is prior cholecystectomy and hysterectomy. No abnormality is seen in the gallbladder fossa or vaginal cuff region. Urinalysis reveals 1-5 urine renal epithelial cells and many calcium oxalate crystals, No signs of infection. Patient was treated with 1 L of IV fluids for hypercalcemia, patient states that this is chronic however given her GI symptoms could be related. She is feeling better after ED treatment and has a benign abdominal exam. Reviewed all imaging lab work and urine results with the patient. She reports that she is surprised that there was no obvious abnormality found however I did discuss with her my concern for gastroenteritis and hypercalcemia however because her symptoms are improving I do believe she is appropriate for outpatient follow up. Recommended Zofran, bland soft diet, very strict ED return precautions were extensively discussed with the patient. I do also recommend that she follows up with Urology given CT abnormalities of mild bladder wall thickening and mild bilateral perinephric fat stranding. Patient verbalized understanding of all information and is agreeable to plan. She is stable for discharge home. <Felicia Rodriguez MD - Last Filed: 06/07/24 19:56> Lab Data Labs: Lab Results 06/07/24 06/07/24 Range/Units 11:26 11:46 WBC 8.7 (4.5-11.0) X10^3/uL RBC 4.46 (4.0-5.2) X10^6/uL Hgb 13.1 (12.0-16.0) g/dL Hct 40.5 (36-46) % MCV 90.7 (80-100) fL MCH 29.4 (26-34) PG MCHC 32.4 (30-36) % RDW 13.3 (11.6-14.8) % Plt Count 315 (150-400) X10^3/uL Neut % (Auto) 65.0 (50-75) % Lymph % (Auto) 24.8 L (25-40) % [place] % (Auto) 7.6 (3-14) % Eos % (Auto) 1.8 L (2-4) % Baso % (Auto) 0.8 (0-2) % Neut # (Auto) 5600 (1190-5035) /uL Lymph # (Auto) 2200 (8658-4573) /uL [place] # (Auto) 700 (0-900) /uL Eos # (Auto) 200 (0-450) /uL Baso # (Auto) 100 (0-100) /uL Sodium 139 (137-145) mmol/L Potassium 4.2 (3.4-5.1) mmol/L Chloride 105 (98-107) mmol/L Carbon Dioxide 25 (22-32) mmol/L BUN 16 (7-17) mg/dL Creatinine 0.75 (0.52-1.04) mg/dL Estimated GFR > 60 (>60) mL/min BUN/Creatinine Ratio 21.3 (6-22) Glucose 102 (80-110) mg/dL Calcium 10.5 H (8.4-10.2) mg/dL Total Bilirubin 0.6 (0.2-1.3) mg/dL AST 22 (14-36) IU/L ALT 17 (<35) IU/L Alkaline Phosphatase 77 (38-126) U/L Total Creatine Kinase 34 (30-135) U/L Troponin I < 0.012 (0.01-0.034) ng/mL Total Protein 7.1 (6.3-8.2) g/dL Albumin 4.4 (3.5-5.0) g/dL Globulin 2.7 (1.7-4.1) g/dL Albumin/Globulin Ratio 1.6 (1.0-2.8) Lipase 96 (23-300) U/L Urine RBC None seen (0-5/HPF) Urine WBC 0-1/hpf (0-5/HPF) Ur Squamous Epith Cells 1-5 /hpf (0-5/HPF) Ur Renal Epithelial Cell 1-5/hpf H (0-1/HPF) Calcium Oxalate Crystal Many H Amorphous Sediment 2+ Urine Bacteria None seen (None) Ur Culture Indicated? Cult not indicated Vol Urine Centrifuged 10ml (spun) Point of care testing: Urine Dip Bedside Urine Glucose Negative Bedside Urine Bilirubin - Negative Bedside Urine Ketone - Negative Urine Specific [place] 1.020 Bedside Urine Occult Blood - Negative Bedside Urine pH 5.5 Bedside Urine Protein - Negative Bedside Urine Urobilinogen - Negative Bedside Urine Nitrite - Negative Bedside Urine Leukocytes - Negative Esterase Discharge Plan Departure Patient Disposition: Home Clinical Impression: Gastroenteritis, Hypercalcemia Instructions: DI for Viral Gastroenteritis -- Adult Activity Restrictions/Additional Instructions: Dear Ms. Ho, Thank you for coming to the emergency department. Today your lab work and imaging was overall reassuring that there is no need to Keep you in the hospital any longer at this time. Your lab work revealed that your calcium is elevated and your CT scan showed some inflammation in the bladder and surrounding the kidneys however there is no urinary tract infection at this time. I suspect her symptoms are likely related to a viral gastroenteritis in addition to the hypercalcemia, but it is very important to follow up promptly with the primary care doctor for further evaluation. I am glad to hear that your symptoms are improving. Please rest, hydrate, eat a bland /soft diet while you continue to have symptoms, and use the prescribed nausea medicine if needed. Please return to the emergency department immediately if you develop any new or worsening symptoms, severe pain, persistent vomiting or diarrhea, fevers, burning with urination,dizziness lightheadedness weakness or other concerns. You may follow up with [facility] Dr. Zambrano or Dr. Milton for further evaluation of your bladder and kidney concerns. You may call to schedule an appointment at [phone] Please follow up with your primary care doctor within the next 2-3 days for ER follow-up. (If you do not have a PCP you can call [phone]. to schedule an appointment with an [facility] Primary Care Provider) IF YOU DEVELOP ANY NEW OR WORSENING SYMPTOMS, RETURN TO THE ER! Please read the attached instructions, they highlight more specific treatments and interventions for you at home. Thank you for letting me participate in your care, Juliette Ray PA-C Prescriptions: New ondansetron 4 mg tablet,disintegrating 4 mg PO Q8H PRN (Reason: nausea and vomiting) Qty: 20 0RF No Action ibuprofen 800 mg tablet 800 mg PO Q8H PRN (Reason: pain) Qty: 30 0RF Rx Instructions: Take it after meal phenazopyridine [Pyridium] 100 mg tablet 100 mg PO TID PRN (Reason: pain) Qty: 6 0RF (DME) Dexcom G7 Sensor Device See Rx Instructions .ROUTE .MEDSUPPLY Qty: 1 Rx Instructions: As directed (DME) Dexcom G7 Color Worker Misc See Rx Instructions .ROUTE DIRECTED Qty: 1 Rx Instructions: As directed cholecalciferol (vitamin D3) 1,000 unit capsule 1,000 unit PO DAILY psyllium PO PRN atorvastatin 10 mg tablet PO DAILY metformin 500 mg tablet 500 mg PO QID sertraline 100 mg tablet 150 mg PO DAILY aspirin [Adult Low Dose Aspirin] 81 mg tablet,delayed release (DR/EC) 81 mg PO DAILY cyanocobalamin (vitamin B-12) 500 mcg tablet 1,000 mcg PO DAILY olopatadine [Patanol] 0.1 % drops EYE-BOTH albuterol sulfate [Proventil HFA] 90 mcg/actuation HFA aerosol inhaler 2 puff INHALATION Q4-6H PRN pioglitazone 30 mg tablet 30 mg PO DAILY fluticasone propionate [Flonase Allergy Relief] 50 mcg/actuation spray,suspension 1 spray NASAL DAILY bupropion HCl 150 mg tablet extended release 24 hr 150 mg PO QAM Basaglar KwikPen U-100 Insulin 100 unit/mL (3 mL) insulin pen 20 - 22 unit SUBCUT .HS insulin aspart U-100 subcut olopatadine NASAL (DME) Respironics Dreamstation CPAP See Rx Instructions Qty: 1 Dose Instruction: As directed Rx Instructions: Pressure: 6-12 cmH2O DME: [facility] Set up: 2.20.18 Referrals: Iwona Bernardo MD [Primary Care Provider] - Stand Alone Forms: Patient Portal/API/Survey ED Sign-out <Felicia Rodriguez MD - Last Filed: 06/07/24 19:56> Cosign ED Attending Cosignature Attestation: I was immediately available in the department for consultation throughout this patient's visit. Felicia Rodriguez MD
--- NOTE | 2024-06-07 11:41 | DI.RAD.S_ITS ---
PROCEDURE: XR CHEST 1V INDICATIONS: epigastric abd pain TECHNIQUE: One view of the chest was acquired. COMPARISON: None. FINDINGS: Surgical changes and devices: None. Lungs and pleura: Lungs are clear. No pleural effusions or pneumothorax. Mediastinum: Mediastinal contours appear normal. Heart size is enlarged. Bones and chest wall: No suspicious bony lesions. Overlying soft tissues appear unremarkable. IMPRESSION: no acute cardiopulmonary pathology. Dictated by: Johann Escobar M.D. on 06/07/2024 at 12:10 Approved by: Johann Escobar M.D. on 06/07/2024 at 12:11
--- NOTE | 2024-06-07 11:41 | DI.CT.S_ITS ---
PROCEDURE: CT ABDOMEN PELVIS W CON INDICATIONS: RUQ/epigastric abd pain; N/V/D; hx cholecystectomy TECHNIQUE: After the administration of intravenous contrast, axial sections acquired from the lung bases to the pubic symphysis. Coronal and sagittal reformats were performed. For radiation dose reduction, the following was used: automated exposure control, adjustment of mA and/or kV according to patient size. COMPARISON: None. FINDINGS: Image quality: Diagnostic. Lower Chest: No significant findings. ABDOMEN: Liver: No solid mass. Gallbladder: Gallbladder is surgically absent. Biliary ducts: No biliary dilation. Pancreas: No ductal dilation. Spleen: Size is within normal limits. Adrenal Glands: No adrenal nodules. Kidneys and Ureters: No hydronephrosis. No solid mass. No complex renal cystic lesion which requires follow up. Mild bilateral perinephric fat stranding is seen. No perinephric fluid collection. Stomach and Bowel: There is no bowel obstruction. No gastric or small bowel wall thickening. A can not ext is not definitively seen. No focal inflammatory changes are seen in right lower quadrant abdomen. No colonic wall thickening. No abscess collection. Peritoneum: No abnormal intraperitoneal fluid. No free air. Ventral Wall: No significant ventral hernia. Abdominal Nodes: No retroperitoneal or mesenteric adenopathy by size criteria. Vessels: Aorta and inferior vena cava are normal in size. PELVIS: Pelvic Organs: There is prior hysterectomy. Bladder: There is mild bladder wall thickening, no discrete bladder wall mass. Pelvic Nodes: No enlarged lymph nodes. Miscellaneous: No inguinal hernias are seen. Surgical clips are seen in bilateral inguinal region. Bones: No aggressive osseous abnormality. IMPRESSION: 1. Mild bladder wall thickening and mild bilateral perinephric fat stranding concerning for pyelonephritis and cystitis suggest clinical correlation. No obstructing renal stones or hydronephrosis. 2. No bowel obstruction or abnormal bowel wall thickening. No evidence of acute appendicitis. No free fluid or free air. 3. Prior cholecystectomy and hysterectomy. No abnormality is seen in gallbladder fossa or vaginal cuff region. Dictated by: Johann Escobar M.D. on 06/07/2024 at 12:45 Approved by: Johann Escobar M.D. on 06/07/2024 at 12:47
[2024-06-07 11:43] LABS: Add Manual Diff / Slide Review NO; Basophils Absolute Auto 100 /uL (0-100); Basophils Percent Auto 0.8 % (0-2); Eosinophils Absolute Auto 200 /uL (0-450); Eosinophils Percent Auto 1.8 % (2-4); Hematocrit 40.5 % (36-46); Hemoglobin 13.1 g/dL (12.0-16.0); Lymphocytes Absolute Auto 2200 /uL (1100-4500); Lymphocytes Percent Auto 24.8 % (25-40); Mean Corpuscular HGB Conc 32.4 % (30-36); Mean Corpuscular Hemoglobin 29.4 PG (26-34); Mean Corpuscular Volume 90.7 fL (80-100); Monocytes Absolute Auto 700 /uL (0-900); Monocytes Percent Auto 7.6 % (3-14); Neutrophils Absolute Auto 5600 /uL (1500-7000); Platelet Count 315 X10^3/uL (150-400); Red Blood Cell Count 4.46 X10^6/uL (4.0-5.2); Red Cell Distribution Width 13.3 % (11.6-14.8); White Blood Cell Count 8.7 X10^3/uL (4.5-11.0)
[2024-06-07 12:03] LABS: Alanine Aminotransferase 17 IU/L (<35); Albumin 4.4 g/dL (3.5-5.0); Albumin Globulin Ratio 1.6 (1.0-2.8); Alkaline Phosphatase 77 U/L (38-126); Aspartate Aminotransferase 22 IU/L (14-36); BUN Creatinine Ratio 21.3 (6-22); Bilirubin Total 0.6 mg/dL (0.2-1.3); Blood Urea Nitrogen 16 mg/dL (7-17); Calcium 10.5 mg/dL (8.4-10.2); Carbon Dioxide 25 mmol/L (22-32); Chloride 105 mmol/L (98-107); Estimated Glomerular Filt Rate > 60 mL/min (>60); Globulin 2.7 g/dL (1.7-4.1); Glucose 102 mg/dL (80-110); HEMOLYSIS < 15 (0-50); Lipase 96 U/L (23-300); Potassium 4.2 mmol/L (3.4-5.1); Sodium 139 mmol/L (137-145); Total Protein 7.1 g/dL (6.3-8.2)
[2024-06-07 12:17] LABS: Creatine Kinase 34 U/L (30-135)
[2024-06-07 12:30] LABS: Troponin I < 0.012 ng/mL (0.01-0.034)
[2024-06-07] MEDS: SODIUM CHLORIDE 0.9% 1,000 ML 1000 ML IV (12:35)
[2024-06-07 13:20] LABS: Bacteria Urine None Seen; RBC Urine None Seen (0-5/HPF); Renal Epithelial Cells Urine 1-5/HPF (0-1/HPF); Squamous Epithelial Cell Urine 1-5 /HPF (0-5/HPF); Urine Volume 10mL (spun); WBC Urine 0-1/HPF (0-5/HPF)
[2024-06-07 13:21] LABS: Amorphous Sediment Urine 2+; Calcium Oxalate Crystals Urine Many; Culture Indicated Urine Cult Not Indicated
[2024-06-07 13:30] VITALS: BP 147/65; PULSE 78; RESP 14; O2SAT 96
[2024-06-07 14:16] VITALS: BP 153/67; PULSE 74; RESP 16; O2SAT 97
== END 2024-06-07 14:18 | disposition home or self-care (01) ==
PROVIDERS: Emergency Medicine; Emergency Provider Physician Assistant; Family Provider Internal Medicine; PCP Internal Medicine
DX: K52.9 Noninfective gastroenteritis and colitis, unspecified (principal); E83.52 Hypercalcemia; R11.2 Nausea with vomiting, unspecified
CPT/HCPCS: 36415; 71045; 74177; 80053; 81003; 81015; 82550; 83690; 84484; 85025; 93005; 96360; 99284; Q9967

== ENCOUNTER → 2025-01-16 14:34 | Outpatient (CLI) | payer MEDICARE, SELFPAY | PROVIDERS: PCP Internal Medicine; Visit Provider Physician Assistant Medical | DX: R30.0 Dysuria (principal) | CPT/HCPCS: 87077; 87086 ==